=== PATIENT | male | born 1955 | race Caucasian/White ===

== ENCOUNTER 2019-06-24 18:28 | Inpatient (IN) | payer BC ==
[~2019-06-24] VITALS: Ht 180.3 cm; Wt 166.0 kg
--- NOTE | ~2019-06-24 | CON ---
[place], [place] REPORT OF CONSULTATION NAME: SVEN AGUDELO UNIT #: [id number] ROOM: 519 DOCTOR: ERIKA GARZA MD BIRTHDATE: [birth year] DOS: 06/26/2019 REASON FOR CONSULTATION: Toe cellulitis, osteomyelitis. CHIEF COMPLAINT: Right leg swelling. HISTORY OF PRESENT ILLNESS: This is a 63-year-old male with past medical history of hypertension, diabetes, hyperlipidemia presenting with chief complaints of right lower leg swelling and pain. According to him, he had an injury over his right leg in a garage in the form of a small cut, which initially got healed as he was taking antibiotics for his COPD exacerbation, but then it came back again and was worsening to the point he decided to come to the ER. At the same time, he has 2 ulcers over his toes, both right and left that he has been taking care himself by frequently cutting of the skin. A day prior to the presentation, he had shaking chills. Since admission, he has been afebrile, no leukocytosis. His ESR is 31 on admission. His CRP is 12.20. His blood cultures from 06/24 negative for last 3 days. X-ray of his foot on the right side shows ulceration second digit with soft tissue gas and erosion of the distal phalanx compatible with acute osteomyelitis, left foot ulceration of the first digit, soft tissue swelling and changes suggestive of acute osteomyelitis there as well. No DVT of bilateral lower extremity, good arterial duplex scan. The patient has been started on vancomycin and Zosyn since admission and ID has been consulted for further management. PAST MEDICAL HISTORY: Significant for atrial fibrillation, cellulitis, hyperglycemia, diabetes, asthma, COPD and hypertension. PAST SURGICAL HISTORY: Appendectomy, inguinal hernia, tonsillectomy, umbilical hernia. SOCIAL HISTORY: Nonsmoker, nonalcoholic, no illicit drug use. FAMILY HISTORY: Significant for stroke in father, hypertension in mother. ALLERGIES: CODEINE and ALOE VERA. HOME MEDICATIONS: Reviewed. REVIEW OF SYSTEMS: A 12-point review of systems has been done. Pertinent negative, likely included in HPI, rest are noncontributory. PHYSICAL EXAMINATION: VITAL SIGNS: Temperature 97.9, pulse rate 99, respiratory rate 18, blood pressure 118/69, oxygen saturation 94% on room air. GENERAL: The patient is alert, oriented x 3, not in acute distress. HEENT: Atraumatic, normocephalic. PERRLA, EOMI. RESPIRATORY: Air entry bilaterally equal. No wheeze or crackles. CARDIOVASCULAR: S1, S2 normal. ABDOMEN: Soft, nontender, nondistended. Bowel sounds present. EXTREMITIES: Right lower extremity redness and tenderness, swelling noted of [place], [place] REPORT OF CONSULTATION NAME: SVEN AGUDELO UNIT #: [id number] ROOM: [facility] DOCTOR: ERIKA GARZA MD BIRTHDATE: [birth year] the entire right lower leg with prepatellar area also having redness and tenderness, swelling more compared to the left side. Right second digit on the plantar aspect, there is a circular ulcer with currently no drainage, no foul smell, probes deep. Similar ulcer noted on the first digit of the left foot with circular ulcer on the plantar aspect. No drainage, no smell, no surrounding redness or tenderness. LABORATORY DATA AND IMAGING: Reviewed, mentioned in HPI. ASSESSMENT: 1. Right lower extremity extensive cellulitis secondary to trauma. 2. Right second digit as well as left first digit ulceration with osteomyelitis. 3. Diabetes. PLAN: At this time, the patient has already been on vancomycin and Zosyn for the last 3 days, which may affect the results of the bone biopsy; however, at this time, I would also like to get an x-ray of his right knee because of the swelling and redness noted over the joint, rule out septic arthritis. Once the bone biopsy results have been finalized, we can further guide his definitive therapy. Currently on vancomycin and Zosyn. Discontinue Zosyn. Continue vancomycin for now, give Tdap injection. Thank you for your consult. Please call for any questions. Erika Garza MD CM:CONSTR:REPORT OF CONSULTATION 1445 06/27/19 0318 interface
--- NOTE | ~2019-06-24 | CON ---
[place], [place] REPORT OF CONSULTATION NAME: SVEN AGUDELO UNIT #: [id number] ROOM: 519 DOCTOR: QUINTIN CHAMBERS BIRTHDATE: [birth year] DOS: 06/26/2019 CARDIOLOGY CONSULTATION REASON FOR CONSULTATION: New-onset atrial fibrillation, preoperative risk assessment. REQUESTING PHYSICIAN: Dr. Julian Cummings. HISTORY OF PRESENT ILLNESS: The patient is a 63-year-old obese gentleman with a history of hypertension, diabetes and hyperlipidemia. He presented yesterday with complaints of right leg swelling and pain over the past few months. He is noted to have an ulcer in his toe and imaging suggested osteomyelitis. He has been seen by Podiatry and plan for being taken to the OR tomorrow for surgical debridement. He has been noted to be in atrial fibrillation with reasonably well controlled rates for this hospitalization. He denies any prior history of diagnosis of atrial fibrillation. He denies palpitations, chest pain. He states he does get short of breath when he exerts himself, but this has been going on for about a year. He is able to walk up a flight of stairs. He states he could walk a mile on flat ground as long as he was in a perdomo. He does not get any chest discomfort with ambulation. 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 REVIEW OF SYSTEMS: Negative except as described above. PAST MEDICAL HISTORY: Hypertension, diabetes, obesity, heart failure with preserved ejection fraction by history (the patient denies knowledge of this), gout. PAST SURGICAL HISTORY: Appendectomy, inguinal hernia, tonsillectomy. SOCIAL HISTORY: Denies smoking or drug use. He drinks alcohol occasionally. 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 FAMILY HISTORY: Both parents lived into the 90s. No history of premature coronary artery disease. ALLERGIES: NOTED TO CODEINE. HOME MEDICATIONS: Carvedilol 12.5 mg p.o. b.i.d. He is on glyburide. He is on losartan 50 mg daily, indomethacin, multivitamin. PHYSICAL EXAMINATION: VITAL SIGNS: He is afebrile, pulse 99 and irregular, respirations 18, blood pressure 118/69, saturating 94% on room air. GENERAL APPEARANCE: He is a morbidly obese, middle-aged gentleman, sitting in chair, in no distress. ENT: With moist mucous membranes. NECK: Supple. JVP difficult to assess given body habitus. No carotid bruits. RESPIRATORY: Lungs diminished. CARDIOVASCULAR: Irregular rhythm with a borderline tachycardic rate. No [place], [place] REPORT OF CONSULTATION NAME: SVEN AGUDELO UNIT #: [id number] ROOM: [facility] DOCTOR: QUINTIN CHAMBERS BIRTHDATE: [birth year] appreciable murmurs. ABDOMEN: Obese. Positive bowel sounds. Soft, nontender. EXTREMITIES: Left leg with mild 1+ pitting edema, right leg with red discoloration throughout the lower extremity along with skin thickening and edema. He has distal ulcerations at the end of the right second toe as well as the left great toe. NEUROLOGICAL: Nonfocal. LABORATORY DATA: Hemoglobin 13.3, platelets 202, potassium 4.0, BUN 45, creatinine 1.18, hemoglobin A1c 8.0. Troponin was negative. Chest x-ray showed cardiomegaly with mild pulmonary vascular congestion. EKG showed atrial fibrillation with a ventricular rate of 95 beats per minute. Normal axis with normal intervals. There is low voltage noted. Echocardiogram interpreted by me yesterday with a severely limited study given body habitus. All structures were not well visualized. Overall, EF was normal at 60-65%. Detailed wall motion assessment or assessment of valvular structures is not possible. The ascending aorta was mildly dilated to 3.9 cm. IMPRESSION: 1. New diagnosis of atrial fibrillation, CHADS2-VASc score at least 4, rate controlled. Not on anticoagulation, on beta vickie. 2. Osteomyelitis of the toe. 3. Mild acute on chronic diastolic congestive heart failure, diuresed well with a dose of intravenous diuretics. This appears improved. 4. Untreated sleep apnea. 5. Morbid obesity. 6. Hypertension. 7. Diabetes. 8. Mildly dilated ascending aorta. RECOMMENDATIONS: 1. With his elevated CHADS2-VASc score, would recommend anticoagulation for stroke risk reduction. Can continue therapeutic enoxapairn for now and convert to a direct oral anticoagulant after his planned podiatric surgery. 2. Continue beta vickie for rate control. 3. Recommend outpatient sleep study and treatment of sleep apnea. 4. Recommend weight reduction and general cardiovascular risk factor modification. 5. Regarding risk stratification, he is at a moderate risk for cardiovascular complications for a low risk surgery. He may proceed with the necessary surgery without further cardiovascular testing. Thank you for the consultation. [place], [place] REPORT OF CONSULTATION NAME: SVEN AGUDELO UNIT #: [id number] ROOM: [facility] DOCTOR: QUINTIN CHAMBERS BIRTHDATE: [birth year] Dr. QUINTIN CHAMBERS MD CM:CONSTR:REPORT OF CONSULTATION 1303 06/27/19 0808 interface
--- NOTE | ~2019-06-24 | PR ---
[place], [place] PROGRESS NOTE NAME: COVERTSVEN UNIT #: [id number] ROOM: 519 DOCTOR: QUINTIN CHAMBERS BIRTHDATE: [birth year] DOS: 06/28/2019 The patient is being seen in followup for newly diagnosed atrial fibrillation. SUBJECTIVE: The patient feels well. Denies any chest pain, shortness of breath or palpitations. He went to the OR yesterday with Podiatry for debridement and bone biopsy without issues. On telemetry, he remains in atrial fibrillation, rate controlled. He did have a 4.4 second pause overnight around 2 in the morning. Otherwise, no issues. He was started on oral rivaroxaban full dose 20 mg today. OBJECTIVE: VITAL SIGNS: Low-grade temp of 100.6, pulse 98, respirations 18, blood pressure 95% on room air. GENERAL: He is an obese male sitting up in a chair, in no distress. NECK: Supple. JVP appears normal, but difficult to assess. No carotid bruit. RESPIRATORY: Lungs are clear. CARDIOVASCULAR: Irregular rhythm, normal rate. No murmurs. ABDOMEN: Positive bowel sounds. Soft, nontender. EXTREMITIES: Both legs are wrapped up after surgery. LABORATORY DATA: Hemoglobin 13.5, platelets 231, potassium 3.7, bicarbonate 34, BUN 17, creatinine 1.18. Echocardiogram from 06/25/2019 was a difficult study, but showed normal LVEF of 60-65% and mildly dilated ascending aorta 3.9 cm. CURRENT CARDIAC MEDICATIONS: Include furosemide 40 mg p.o. b.i.d., rivaroxaban 20 mg daily, carvedilol 25 mg b.i.d., losartan 50 mg daily. IMPRESSION: 1. New diagnosis of atrial fibrillation, persistent, rate controlled. 2. CHADS2-VASc score at least 4. On rivaroxaban and carvedilol. No pauses greater than 5 seconds noted. 3. Acute on chronic diastolic congestive heart failure, resolved. 4. Osteomyelitis of the toe, status post debridement and bone biopsies. 5. Untreated sleep apnea. 6. Morbid obesity. 7. Mildly dilated ascending aorta. 8. Hypertension, diabetes. RECOMMENDATIONS: 1. Agree with oral furosemide. 2. Agree with rivaroxaban 20 mg daily. 3. Continue carvedilol and losartan at the present doses. 4. His pause is likely related to hypoxia and his untreated sleep apnea. Generally speaking in atrial fibrillation pauses less that 5 seconds are not of clinical concern. I think the underlying issue of sleep apnea needs to be addressed and an outpatient sleep study is recommended. 5. Recommended ongoing efforts for weight reduction and risk factor [place], [place] PROGRESS NOTE NAME: SVEN AGUDELO UNIT #: [id number] ROOM: [facility] DOCTOR: QUINTIN CHAMBERS BIRTHDATE: [birth year] modification. 6. We will plan to bring him back in 3 weeks for a cardioversion to try to get him back into sinus rhythm. 7. Okay for discharge from cardiology standpoint. I will see him in the office. We will sign off. Please call with any questions. Dr. QUINTIN CHAMBERS MD CM:PNTRANS [id number] QUINTIN CHAMBERS 07/03/19 0854 interface
--- NOTE | ~2019-06-24 | O ---
[place], [place] OPERATIVE NOTE NAME: SVEN AGUDELO UNIT #: [id number] ROOM: 519 DOCTOR: JOJO CHEN DPM BIRTHDATE: [birth year] DOS: 06/27/2019 SURGEON: Jojo Chen DPM. ASSISTANTS: 1. Vick Alves, fellow. 2. Lionel Stevens, PGY3. 3. Fozia Kay, PGY3. PREOPERATIVE DIAGNOSES: Osteomyelitis of the left great toe, osteomyelitis of the second toe, right. POSTOPERATIVE DIAGNOSES: Osteomyelitis of the left great toe, osteomyelitis of the second toe, right. PROCEDURE: Incision and drainage, bone debridement, bone biopsy, left great toe. Incision and drainage, bone biopsy of second toe, right. DESCRIPTION OF PROCEDURE: The patient was seen in preoperative holding area, appropriate site marking performed. He and concurred the site marking. ____. He was brought to OR, placed on the well-padded OR table and anesthesia was achieved. At this point in time, ____ was used. At that time, rongeurs were used to fully excised wounds at the distal tip of the left great toe, which measured approximately 7 mm x 7 mm. This was carried down to the bone and the bone then was harvested with a rongeur extensively. This was sent for Gram stain, aerobic, anaerobic, fungal, acid fast as well as biopsy of left great toe. Dressed with Betadine-soaked Adaptic, 4 x 4s, Austyn ____ with a compression bandage to his left lower extremity. Attention directed to the second toe, right where incision was made over the wound. The wound was 0.5 x 0.5 cm full thickness in nature. This was excised, removed in total. The incision was carried down to the bone. The bone was resected. Bone was then debrided with a rongeur and excised and the bone segment sent for Gram stain, aerobic, anaerobic, fungal, acid fast as well as biopsy of the second toe of the right. The area was irrigated with copious amounts of sterile saline. At this time, ____ dressed with Betadine-soaked Adaptic, 4 x 4s, Austyn in a sterile compressive fashion. He tolerated the procedure and anesthesia well and left the OR with vital signs stable and vascular status intact. [place], [place] OPERATIVE NOTE NAME: JACINTATSVEN UNIT #: [id number] ROOM: [facility] DOCTOR: JOJO CHEN DPM BIRTHDATE: [birth year] JOJO CHEN DPM CM:OPRECORD:OPERATIVE NOTE 1332 [id number] JOJO CHEN DPM 06/27/19 1715 interface
--- NOTE | ~2019-06-24 | EKG ---
[place], [place] ELECTROCARDIOGRAM REPORT NAME: SVEN AGUDELO UNIT #: [id number] ROOM: 519 DOCTOR: HANNAH DRAFT REPORT BIRTHDATE: [birth year] [facility] Test Date: 2019-06-24 Test Time: 18:56:17 Pat Name: SVEN AGUDELO Department: Room: 519 Gender: M Head Esthetician: Gemma Kwon : 1955 Requested By: GERA GARCIA Order Number: [id number] Reading MD: Shad Nunez MD Measurements Intervals [place] Rate: 102 P: [place]: QRS: 15 QRSD: 78 T: 39 QT: 340 QTc: 443 Interpretive Statements Atrial fibrillation Electronically Signed On 06-25-2019 5:51:13 PDT by Shad Nunez MD CM:EKGRPT:ELECTROCARDIOGRAM REPORT [id number] GERA YOUNG DRAFT REPORT GERA GARCIA MD
--- NOTE | ~2019-06-24 | WRIGHTHP ---
[place], [place] PATIENT HISTORY AND PHYSICAL EXAM NAME: SVEN AGUDELO UNIT #: [id number] ROOM: 519 DOCTOR: JOJO CHEN DPM BIRTHDATE: [birth year] DOS: 06/24/2019 INDICATION NOTE The patient is seen for cellulitis infection of his right lower leg ____ open wounds of the left hallux and second toe, right. He denies any other significant history relative to his foot, other than the cellulitis infection. He said that this may started as a scratch ____ and leg. With this in mind, he is set for surgery today for incision and drainage, bone debridement, bone biopsy of left hallux and the second toe, right. He understands pros, cons, risks, benefits overcorrection, undercorrection, recurrence, numbness, infection, drainage, foul odor, undermining tunneling, limb loss, DVT, PE, etc. With this in mind, he understands he is at risk for limb loss. With this in mind, he has agreed to surgery. He gave consent to the surgery, consent to the site marking. With this in mind, he agreed with all. JOJO CHEN DPM CM:HISPHYS:PATIENT HISTORY AND PHYSICAL EXAMINATION 1332 1403 JOJO CHEN DPM 06/27/19 1532 interface
--- NOTE | ~2019-06-24 | EKG ---
[place], [place] ELECTROCARDIOGRAM REPORT NAME: SVEN AGUDELO UNIT #: [id number] ROOM: [facility] DOCTOR: HANNAH DRAFT REPORT BIRTHDATE: [birth year] [facility] Test Date: 2019-06-25 Test Time: 14:45:00 Pat Name: SVEN AGUDELO Department: Room: [facility] 1 Gender: M E Learning Manager: Brooke Peguero : 1955 Requested By: RYAN AGUILAR Order Number: [id number] Reading MD: Shad Nunez MD Measurements Intervals [place] Rate: 95 P: DC: QRS: 10 QRSD: 83 T: 30 QT: 347 QTc: 436 Interpretive Statements Atrial fibrillation Low voltage, precordial leads Electronically Signed On 06-26-2019 4:47:32 PDT by Shad Nunez MD CM:EKGRPT:ELECTROCARDIOGRAM REPORT [id number] RYAN DALEY DRAFT REPORT RYAN AGUILAR DO
--- NOTE | ~2019-06-24 | PR ---
[place], [place] PROGRESS NOTE NAME: SVEN AGUDELO UNIT #: [id number] ROOM: 519 DOCTOR: QUINTIN CHAMBERS BIRTHDATE: [birth year] DOS: 06/27/2019 The patient is being seen in followup for a new diagnosis of atrial fibrillation. SUBJECTIVE: The patient feels well. He is planned for the OR today for debridement and bone biopsy of toes on both feet. Denies chest pain or shortness of breath or palpitations. He feels well. On telemetry, he remains in atrial fibrillation with overall rate controlled, occasionally up to the 120s. OBJECTIVE: VITAL SIGNS: Afebrile, pulse 90, respirations 14, blood pressure 137/69, saturating 93% on room air. GENERAL APPEARANCE: Obese male, sitting in chair, in no distress. NECK: Supple. JVP appears normal. No carotid bruits. RESPIRATORY: Lungs are clear. CARDIOVASCULAR: Irregular rhythm with a normal rate. No murmurs heard. ABDOMEN: Positive bowel sounds. Soft, nontender. EXTREMITIES: Red discoloration and some edema of the right lower extremity with mild edema in the left lower extremity. Both feet are covered. LABORATORY DATA: Hemoglobin 13.3, platelets 202. No chemistries today, but creatinine yesterday was 1.18. As previously mentioned, an echocardiogram on this admission was severely limited given the body habitus, but overall EF was normal. There was mildly dilated ascending aorta of 3.9 cm. CURRENT CARDIAC MEDICATIONS: Include losartan 50 mg daily, enoxaparin 160 mg b.i.d., furosemide 40 mg IV b.i.d., carvedilol 12.5 mg b.i.d. I's and O's negative 3 liters in the past 24 hours. ASSESSMENT: 1. New diagnosis of atrial fibrillation, rate controlled, CHADS2-VASc score at least 4. Not on anticoagulation, rate controlled with beta-vickie. 2. Osteomyelitis of the toe. 3. Acute on chronic diastolic congestive heart failure, improving diuresing well. 4. Untreated sleep apnea. 5. Morbid obesity. 6. Hypertension, diabetes, mildly dilated ascending aorta. RECOMMENDATIONS: 1. After surgery today, we would initiate oral anticoagulation with either rivaroxaban or apixaban. 2. We will plan for outpatient DC cardioversion after 3 weeks of anticoagulation and will be followed up with me. 3. We will up titrate his carvedilol for improved rate control. 4. He remains on IV diuretics today, this can probably be transitioned to oral after the evening dose. 5. Recommended ongoing efforts for weight reduction and risk factor [place], [place] PROGRESS NOTE NAME: SVEN AGUDELO UNIT #: [id number] ROOM: [facility] DOCTOR: QUINTIN CHAMBERS BIRTHDATE: [birth year] modification. 6. Outpatient sleep study and treatment of sleep apnea is recommended. Dr. QUINTIN CHAMBERS MD CM:AKILAH 1203 50 QUINTIN CHAMBERS 06/27/192150 interface
--- NOTE | ~2019-06-24 | WRIGHTHP ---
[place], [place] PATIENT HISTORY AND PHYSICAL EXAM NAME: SVEN AGUDELO UNIT #: [id number] ROOM: 519 DOCTOR: JOJO CHEN DPM BIRTHDATE: [birth year] DOS: 06/24/2019 LOWER EXTREMITY PHYSICAL EXAM VASCULAR: Diminished pedal pulses 1/4 DP and PT bilaterally. Good cap fill time. It is hard to palpate due to the significant amount of edema. He has significant pretibial edema, more on the right than the left secondary to cellulitis. NEUROLOGICAL: He has complete loss of protective sensation secondary to diabetic neuropathy. MUSCULOSKELETAL: He has flexion contracture of toes causing when he ambulates the distal tip of his toes rubbing the ground, causing these ulcerations. There are flexor digitorum longus of toes ____ on second toe on the right and the F[facility] ____ left. He also has a gastroc equinus component as well on both lower extremities. Orthopedic exam, possible osteomyelitis of the left hallux and the second toe, right. JOJO CHEN DPM CM:HISPHYS:PATIENT HISTORY AND PHYSICAL EXAMINATION 1332 1406 JOJO CHEN DPM 06/27/19 1533 interface
[~2019-06-24 18:28] MED LIST: ALLOPURINOL100 MG PO; COLCHICINE0.6 MG PO; INDOCIN25 MG PO; MULTI VITAMINS1 TAB PO; ZYLOPRIM100 MG PO
[2019-06-24 18:31] VITALS: BP 159/85
[2019-06-24 19:27] LABS: BASO % 0.1 % (0.0-1.0); EOS # 0.1 10*3/uL (0.0-0.4); EOS % 1.8 % (1.0-4.0); HEMATOCRIT 38.8 % (42.0-52.0); HEMOGLOBIN 12.4 g/dl (14.0-18.0); LYMPH # 1.1 10*3/uL (1.3-4.4); LYMPH % 16.6 % (27.0-41.0); MEAN CELL VOLUME 90.7 fl (80.0-94.0); MEAN PLATELET VOLUME 10.3 fl (9.6-12.3); MONO # 0.8 10*3/uL (0.1-1.0); MONO % 12.1 % (3.0-9.0); NEUT # 4.6 10*3/uL (2.3-7.9); NEUT % 68.8 % (47.0-73.0); PLATELET COUNT AUTOMATED 160 10*3/uL (130-400); RED BLOOD COUNT 4.28 10*6/uL (4.50-5.90); RED CELL DISTRI WIDTH 13.3 % (0-14.5); WHITE BLOOD COUNT 6.8 10*3/uL (4.8-10.8)
[2019-06-24 19:39] LABS: ACT PARTIAL THROMBO TIME 28.2 SECONDS (20.0-32.1); INTERNATIONAL NORM RATIO 1.1 (2.0-3.5)
[2019-06-24 19:44] LABS: ALKALINE PHOSPHATASE 109 U/L (45-117); BUN 17 mg/dl (7-24); CHLORIDE 107 mmol/L (98-107); POTASSIUM 3.9 mmol/L (3.5-5.1); SGOT/AST 25 IU/L (3-35); SGPT/ALT 40 U/L (12-78); SODIUM 140 mmol/L (136-145); TOTAL PROTEIN 6.7 gm/dL (6.4-8.2)
[2019-06-24 19:47] LABS: TROPONIN I < 0.015 ng/ml (<0.045)
[2019-06-24 20:37] LABS: BILIRUBIN NEGATIVE (NEGATIVE); BLOOD NEGATIVE (NEGATIVE); CLARITY CLEAR (CLEAR); COLOR YELLOW (YELLOW); GLUCOSE TRACE (NEGATIVE); KETONE NEGATIVE (NEGATIVE); LEUKO ESTERASE NEGATIVE (NEGATIVE); NITRITE NEGATIVE (NEGATIVE); PH 5.5 (5.0-9.0); SPECIFIC GRAVITY 1.025 (1.005-1.030); UROBILINOGEN 0.2 E.U./dl (0.2-1.0)
[2019-06-24 20:43] LABS: RBC 0-2 rbc/hpf (0-2); WBC 0-2 wbc/hpf (0-5)
[2019-06-24 20:44] LABS: URIC ACID CRYSTALS RARE
[2019-06-24 20:50] VITALS: BP 139/80
[2019-06-24] MEDS ORDERED: LOSARTAN POTASS50 M1 PO (20:54)
[2019-06-24] MEDS ORDERED: INDOMETHACIN25 M1 PO (20:55)
[2019-06-24] MEDS ORDERED: GLYBURIDE5 MG PO ×2 (20:55→20:57)
[2019-06-24] MEDS ORDERED: CARVEDILOL12.5 MG PO (20:57)
[2019-06-24] MEDS ORDERED: PROAIR HFA8.5 GM INH (21:00)
[2019-06-24 21:55] VITALS: BP 139/80
[2019-06-25] VITALS: BP 132/80
[2019-06-25 06:27] LABS: BUN 13 mg/dl (7-24); CHLORIDE 105 mmol/L (98-107); CHOLESTEROL 111 mg/dL (<200); CREATININE 0.94 mg/dL (0.70-1.30); HDL CHOLESTEROL 37 mg/dl (40-60); LDL CHOLESTEROL 60 mg/dL (9-159); PHOSPHOROUS 3.3 mg/dL (2.5-4.9); SODIUM 141 mmol/L (136-145); TRIGLYCERIDES 69 mg/dl (<150); VLDL CHOLESTEROL 14 mg/dL (6-40)
[2019-06-25 06:35] LABS: BASO % 0.1 % (0.0-1.0); EOS # 0.1 10*3/uL (0.0-0.4); EOS % 1.1 % (1.0-4.0); HEMATOCRIT 37.3 % (42.0-52.0); HEMOGLOBIN 11.9 g/dl (14.0-18.0); LYMPH # 1.3 10*3/uL (1.3-4.4); LYMPH % 17.8 % (27.0-41.0); MEAN CELL VOLUME 91.2 fl (80.0-94.0); MEAN CORPUSCULAR HGB 29.1 pg (27.0-31.0); MEAN CORPUSCULAR HGB CONC 31.9 g/dl (33.0-37.0); MEAN PLATELET VOLUME 10.7 fl (9.6-12.3); MONO # 0.9 10*3/uL (0.1-1.0); MONO % 12.1 % (3.0-9.0); NEUT # 4.8 10*3/uL (2.3-7.9); NEUT % 68.5 % (47.0-73.0); PLATELET COUNT AUTOMATED 167 10*3/uL (130-400); RED BLOOD COUNT 4.09 10*6/uL (4.50-5.90); RED CELL DISTRI WIDTH 13.3 % (0-14.5)
[2019-06-25 08:10] VITALS: BP 132/80
[2019-06-25 16:00] VITALS: BP 166/82
[2019-06-25 17:59] LABS: BASO % 0.2 % (0.0-1.0); EOS # 0.1 10*3/uL (0.0-0.4); EOS % 1.2 % (1.0-4.0); HEMATOCRIT 41.1 % (42.0-52.0); HEMOGLOBIN 13.3 g/dl (14.0-18.0); LYMPH # 1.5 10*3/uL (1.3-4.4); MEAN CELL VOLUME 90.7 fl (80.0-94.0); MEAN CORPUSCULAR HGB 29.4 pg (27.0-31.0); MEAN CORPUSCULAR HGB CONC 32.4 g/dl (33.0-37.0); MEAN PLATELET VOLUME 10.7 fl (9.6-12.3); MONO # 0.8 10*3/uL (0.1-1.0); MONO % 9.6 % (3.0-9.0); NEUT # 5.7 10*3/uL (2.3-7.9); NEUT % 70.6 % (47.0-73.0); PLATELET COUNT AUTOMATED 202 10*3/uL (130-400); RED BLOOD COUNT 4.53 10*6/uL (4.50-5.90); RED CELL DISTRI WIDTH 13.2 % (0-14.5); WHITE BLOOD COUNT 8.1 10*3/uL (4.8-10.8)
[2019-06-25 20:00] VITALS: BP 140/79
[2019-06-26] VITALS: BP 130/78; BP 131/89
[2019-06-26 08:00] VITALS: BP 142/78
[2019-06-26 10:07] LABS: BUN 14 mg/dl (7-24); CHLORIDE 98 mmol/L (98-107); CREATININE 1.18 mg/dL (0.70-1.30); PHOSPHOROUS 3.4 mg/dL (2.5-4.9); SODIUM 136 mmol/L (136-145)
[2019-06-26 12:00] VITALS: BP 118/69
[2019-06-26 16:00] VITALS: BP 122/70
[2019-06-26 20:00] VITALS: BP 136/76
[2019-06-27] VITALS (8 sets, daily range): BP systolic 118–159; BP diastolic 66–100
[2019-06-28] VITALS: BP 121/69
[2019-06-28 09:44] LABS: BASO % 0.3 % (0.0-1.0); EOS # 0.1 10*3/uL (0.0-0.4); EOS % 1.4 % (1.0-4.0); HEMATOCRIT 41.7 % (42.0-52.0); HEMOGLOBIN 13.5 g/dl (14.0-18.0); LYMPH # 1.3 10*3/uL (1.3-4.4); LYMPH % 17.4 % (27.0-41.0); MEAN CELL VOLUME 90.3 fl (80.0-94.0); MEAN CORPUSCULAR HGB 29.2 pg (27.0-31.0); MEAN CORPUSCULAR HGB CONC 32.4 g/dl (33.0-37.0); MEAN PLATELET VOLUME 10.2 fl (9.6-12.3); MONO # 0.5 10*3/uL (0.1-1.0); NEUT # 5.4 10*3/uL (2.3-7.9); NEUT % 73.2 % (47.0-73.0); PLATELET COUNT AUTOMATED 231 10*3/uL (130-400); RED BLOOD COUNT 4.62 10*6/uL (4.50-5.90); RED CELL DISTRI WIDTH 12.9 % (0-14.5); WHITE BLOOD COUNT 7.4 10*3/uL (4.8-10.8)
[2019-06-28 10:04] LABS: BUN 17 mg/dl (7-24); CHLORIDE 100 mmol/L (98-107); CREATININE 1.18 mg/dL (0.70-1.30); POTASSIUM 3.7 mmol/L (3.5-5.1); SODIUM 138 mmol/L (136-145)
[2019-06-28 12:00] VITALS: BP 144/87
[2019-06-28 12:06] LABS: ACID FAST SPEC PROCESSING Tissue Grinding (.)
[2019-06-28 12:06] LABS: ACID FAST SPEC PROCESSING Tissue Grinding (.)
[2019-06-28 16:00] VITALS: BP 152/81
[2019-06-28 20:00] VITALS: BP 150/82; BP 151/97
[2019-06-29] VITALS: BP 152/76
[2019-06-29 07:17] LABS: BASO % 0.2 % (0.0-1.0); HEMATOCRIT 40.4 % (42.0-52.0); HEMOGLOBIN 13.2 g/dl (14.0-18.0); LYMPH % 8.7 % (27.0-41.0); MEAN CELL VOLUME 88.2 fl (80.0-94.0); MEAN CORPUSCULAR HGB 28.8 pg (27.0-31.0); MEAN CORPUSCULAR HGB CONC 32.7 g/dl (33.0-37.0); MEAN PLATELET VOLUME 10.6 fl (9.6-12.3); MONO # 0.6 10*3/uL (0.1-1.0); MONO % 5.1 % (3.0-9.0); NEUT # 9.7 10*3/uL (2.3-7.9); NEUT % 85.4 % (47.0-73.0); PLATELET COUNT AUTOMATED 252 10*3/uL (130-400); RED BLOOD COUNT 4.58 10*6/uL (4.50-5.90); RED CELL DISTRI WIDTH 12.6 % (0-14.5); WHITE BLOOD COUNT 11.4 10*3/uL (4.8-10.8)
[2019-06-29 08:24] LABS: BUN 26 mg/dl (7-24); CHLORIDE 102 mmol/L (98-107); POTASSIUM 3.7 mmol/L (3.5-5.1); SODIUM 139 mmol/L (136-145)
[2019-06-29 12:00] VITALS: BP 127/70
[2019-06-29] MEDS ORDERED: VANCOMYCIN HYDRO1 G1 IV (14:40)
[2019-06-29 16:00] VITALS: BP 125/62
[2019-06-29] MEDS ORDERED: LASIX40 MG PO (16:58)
[2019-06-29] MEDS ORDERED: CARVEDILOL25 MG PO (16:58)
[2019-06-29] MEDS ORDERED: XARE20MG PO (16:58)
[2019-06-29 20:00] VITALS: BP 141/85
[2019-06-30] MEDS ORDERED: VANCOMYCIN2 GM/500 M IV (19:57)
== END 2019-06-29 23:00 | disposition home or self-care (01) | DRG 853 ==
LOC: ED 18:28 → 5E 18:44 → EDHOLD 18:44 → 5E 19:04
PROVIDERS: Emergency Medicine; Internal Medicine; Podiatrist; Student in an Organized Health Care Education/Training Program; ADMIT Emergency Medicine
DX: A41.9 Sepsis, unspecified organism (principal); L89.893 Pressure ulcer of other site, stage 3; I50.33 Acute on chronic diastolic (congestive) heart failure; M86.171 Other acute osteomyelitis, right ankle and foot; L03.115 Cellulitis of right lower limb; E44.0 Moderate protein-calorie malnutrition; L03.116 Cellulitis of left lower limb; I48.1 Persistent atrial fibrillation; L97.919 Non-pressure chronic ulcer of unspecified part of right lower leg with unspecified severity; M86.8X7 Other osteomyelitis, ankle and foot; Z68.42 Body mass index [BMI] 45.0-49.9, adult; L89.892 Pressure ulcer of other site, stage 2; J45.909 Unspecified asthma, uncomplicated; I11.0 Hypertensive heart disease with heart failure; E66.01 Morbid (severe) obesity due to excess calories; E78.00 Pure hypercholesterolemia, unspecified; E78.5 Hyperlipidemia, unspecified; E11.69 Type 2 diabetes mellitus with other specified complication; D64.9 Anemia, unspecified; E11.65 Type 2 diabetes mellitus with hyperglycemia; E83.41 Hypermagnesemia; G47.30 Sleep apnea, unspecified; I77.819 Aortic ectasia, unspecified site; M1A.0610 Idiopathic chronic gout, right knee, without tophus (tophi); J44.9 Chronic obstructive pulmonary disease, unspecified; E11.621 Type 2 diabetes mellitus with foot ulcer; L97.519 Non-pressure chronic ulcer of other part of right foot with unspecified severity; E11.40 Type 2 diabetes mellitus with diabetic neuropathy, unspecified; S81.801S Unspecified open wound, right lower leg, sequela; Z88.6 Allergy status to analgesic agent; Z88.8 Allergy status to other drugs, medicaments and biological substances; Z79.899 Other long term (current) drug therapy; Z90.49 Acquired absence of other specified parts of digestive tract; Z82.49 Family history of ischemic heart disease and other diseases of the circulatory system; Z90.89 Acquired absence of other organs; Z82.3 Family history of stroke

== ENCOUNTER 2019-07-01 18:09 | Inpatient (IN) | payer BC ==
[~2019-07-01] VITALS: Ht 180.3 cm; Wt 158.9 kg
--- NOTE | ~2019-07-01 | EKG ---
[place], [place] ELECTROCARDIOGRAM REPORT NAME: JACINTATSVEN UNIT #: [id number] ROOM: 511 DOCTOR: HANNAH DRAFT REPORT BIRTHDATE: [birth year] [facility] Test Date: 2019-07-01 Test Time: 18:13:20 Pat Name: SVEN AGUDELO Department: Room: 511 Gender: M Public Health Policy Analyst: : 1955 Requested By: GERA AGRCIA Order Number: [id number] Reading MD: Shad Nunez MD Measurements Intervals [place] Rate: 88 P: [place]: QRS: 22 QRSD: 77 T: 61 QT: 380 QTc: 460 Interpretive Statements Atrial fibrillation Nonspecific ST changes Electronically Signed On 07-02-2019 10:57:57 PDT by Shad Nunez MD CM:EKGRPT:ELECTROCARDIOGRAM REPORT [id number] GERA GARCIA MD EPIPHANY DRAFT REPORT GERA GARCIA MD
--- NOTE | ~2019-07-01 | EKG ---
[place], [place] ELECTROCARDIOGRAM REPORT NAME: JACINTATSVEN UNIT #: [id number] ROOM: 511 DOCTOR: HANNAH DRAFT REPORT BIRTHDATE: [birth year] [facility] Test Date: 2019-07-01 Test Time: 20:42:47 Pat Name: SVEN AGUDELO Department: Room: 511 Gender: M Bed Machine Operator: Constanza Solorzano : 1955 Requested By: GERA GARCIA Order Number: [id number] Reading MD: Shad Nunez MD Measurements Intervals [place] Rate: 84 P: AR: QRS: 25 QRSD: 76 T: 47 QT: 400 QTc: 473 Interpretive Statements Atrial fibrillation Nonspecific ST changes Electronically Signed On 07-02-2019 10:59:43 PDT by Shad Nunez MD CM:EKGRPT:ELECTROCARDIOGRAM REPORT [id number] GERA YOUNG DRAFT REPORT GERA GARCIA MD
--- NOTE | ~2019-07-01 | EKG ---
[place], [place] ELECTROCARDIOGRAM REPORT NAME: JACINTATSVEN UNIT #: [id number] ROOM: 511 DOCTOR: HANNAH DRAFT REPORT BIRTHDATE: [birth year] [facility] Test Date: 2019-07-01 Test Time: 23:43:38 Pat Name: SVEN AGUDELO Department: Room: 511 Gender: M Heel Layer: Constanza Solorzano : 1955 Requested By: GERA GARCIA Order Number: [id number] Reading MD: Shad Nunez MD Measurements Intervals [place] Rate: 84 P: RI: QRS: 24 QRSD: 80 T: 62 QT: 408 QTc: 483 Interpretive Statements Atrial fibrillation Low voltage, precordial leads Electronically Signed On 07-02-2019 11:00:46 PDT by Shad Nunez MD CM:EKGRPT:ELECTROCARDIOGRAM REPORT [id number] GERA YOUNG DRAFT REPORT GERA GARCIA MD
[~2019-07-01 18:09] MED LIST changes: +CARVEDILOL12.5 MG PO; +CARVEDILOL25 MG PO; +GLYBURIDE5 MG PO; +INDOMETHACIN25 M1 PO; +LASIX40 MG PO; +LOSARTAN POTASS50 M1 PO; +PROAIR HFA8.5 GM INH; +VANCOMYCIN HYDRO1 G1 IV; +VANCOMYCIN2 GM/500 M IV; +XARE20MG PO
[2019-07-01 18:25] LABS: BASO % 0.2 % (0.0-1.0); EOS # 0.1 10*3/uL (0.0-0.4); EOS % 1.5 % (1.0-4.0); HEMATOCRIT 39.3 % (42.0-52.0); HEMOGLOBIN 12.5 g/dl (14.0-18.0); MEAN CELL VOLUME 90.3 fl (80.0-94.0); MEAN CORPUSCULAR HGB 28.7 pg (27.0-31.0); MEAN CORPUSCULAR HGB CONC 31.8 g/dl (33.0-37.0); MEAN PLATELET VOLUME 10.1 fl (9.6-12.3); MONO # 0.5 10*3/uL (0.1-1.0); MONO % 5.2 % (3.0-9.0); NEUT % 82.6 % (47.0-73.0); PLATELET COUNT AUTOMATED 208 10*3/uL (130-400); RED BLOOD COUNT 4.35 10*6/uL (4.50-5.90); RED CELL DISTRI WIDTH 12.9 % (0-14.5); WHITE BLOOD COUNT 9.6 10*3/uL (4.8-10.8)
[2019-07-01 18:36] LABS: ACT PARTIAL THROMBO TIME 31.3 SECONDS (20.0-32.1); INTERNATIONAL NORM RATIO 1.2 (2.0-3.5)
[2019-07-01 18:43] LABS: ALKALINE PHOSPHATASE 98 U/L (45-117); BUN 30 mg/dl (7-24); CHLORIDE 105 mmol/L (98-107); CREATININE 1.47 mg/dL (0.70-1.30); SGOT/AST 25 IU/L (3-35); SGPT/ALT 52 U/L (12-78); SODIUM 141 mmol/L (136-145); TOTAL PROTEIN 7.1 gm/dL (6.4-8.2)
[2019-07-01 18:44] LABS: TROPONIN I < 0.015 ng/ml (<0.045)
[2019-07-01 19:02] VITALS: BP 157/71
--- NOTE | 2019-07-01 19:40 | NUR ---
A 64, admitted to 5E, under the services of KIKO [place] DO with a diagnosis of RIGHT SIDED CHEST PAIN. Chief complaint is MULTIPLE COMPLAINTS. Patient arrived via stretcher from ER. Monitor applied. Initial assessment completed. Vital signs taken and recorded. KIKO B[place] DO notified of admission to the unit. Orders received. See assessment for past medical history, medications and allergies. Patient and/or family oriented to unit. visitation policy reviewed. Clothing/patient valuable form completed. HAILEE ALANIZ
[2019-07-01 19:46] VITALS: BP 161/75
[2019-07-01 19:50] VITALS: BP 147/82
--- NOTE | 2019-07-01 20:07 | NUR ---
REFUSED PHOTOS OF SURGICAL SITES, REFUSED REMOVAL OF DRESSINGS
--- NOTE | 2019-07-01 20:07 | NUR ---
INFORMED THAT HOME MEDS ARE VERIFIED BY PATIENT. STATED OK TO PLACE ORDER TO USE PICC LINE.
--- NOTE | 2019-07-01 20:20 | NUR ---
FISH HATCHERY MANAGER CALLED AND STATED PATIENT HR 130-150'S. PATIENT WAS USING BATHROO. HR DECREASED 90-100'S IMMEDIATELY, HX AFIB. PATIENT ASYMPTOMATIC. WILL CONTINUE TO MONITOR
--- NOTE | 2019-07-01 21:00 | NUR ---
INFORMED THAT PATIENT REFUSED WOUND PICS/MEASUREMENTS. AWAITING ORDERS.
--- NOTE | 2019-07-01 23:17 | NUR ---
INFORMED THAT PATIENT IS STILL HAVING RIGHT SIDED PAIN THAT RADIATES TO RIGHT SHOULDER WITH NORCO ONLY BEING SOMEWHAT EFFECTIVE, PAIN LEVEL 5/10 AT THIS TIME. PATIENT IS HAVING SOB AT REST WITH SPO2 @88% RA, PLACED ON 1.5L NC INCREASE 93%. STATES TO PLACE X1 DOSE NITRO SL AND MONITOR EFFECTIVENESS.
--- NOTE | 2019-07-01 23:40 | NUR ---
INFORMED THE NITRO SL WAS NOT EFFECTIVE, AND THAT CARDIAC TECHNOLOGIST WAS JUST IN, SHOW EKG OF AFIB. STATED OK AND MAY TRY MORPHINE
[2019-07-02] VITALS: BP 127/70
[2019-07-02 06:41] LABS: BASO % 0.2 % (0.0-1.0); EOS # 0.1 10*3/uL (0.0-0.4); EOS % 1.2 % (1.0-4.0); HEMATOCRIT 39.8 % (42.0-52.0); HEMOGLOBIN 12.5 g/dl (14.0-18.0); LYMPH % 9.7 % (27.0-41.0); MEAN CELL VOLUME 91.5 fl (80.0-94.0); MEAN CORPUSCULAR HGB 28.7 pg (27.0-31.0); MEAN CORPUSCULAR HGB CONC 31.4 g/dl (33.0-37.0); MEAN PLATELET VOLUME 10.3 fl (9.6-12.3); MONO # 0.5 10*3/uL (0.1-1.0); MONO % 5.4 % (3.0-9.0); NEUT # 8.3 10*3/uL (2.3-7.9); NEUT % 82.8 % (47.0-73.0); PLATELET COUNT AUTOMATED 210 10*3/uL (130-400); RED BLOOD COUNT 4.35 10*6/uL (4.50-5.90); WHITE BLOOD COUNT 10.1 10*3/uL (4.8-10.8)
[2019-07-02 06:43] LABS: BUN 24 mg/dl (7-24); CHLORIDE 105 mmol/L (98-107); CREATININE 1.39 mg/dL (0.70-1.30); PHOSPHOROUS 3.5 mg/dL (2.5-4.9); POTASSIUM 4.3 mmol/L (3.5-5.1); SODIUM 141 mmol/L (136-145)
[2019-07-02 08:00] VITALS: BP 138/82
--- NOTE | 2019-07-02 09:28 | NUR ---
NOTIFIED DR. FRANCISCO OF PODIATRY CONSULT FOR DR. PINK FOR DRESSING CHANGES TO BILATERAL FEET. DR. FRANCISCO STATED HE WILL PASS IT ALONG.
--- NOTE | 2019-07-02 09:45 | NUR ---
PATIENT MEDICATED W/ PRN NORCO FOR 6/10 RIGHT RIB/CHEST PAIN AND 50 MG OF PRN INDOCIN FOR GOUT FLARE UP. WILL MONITOR EFFECTIVENESS.
--- NOTE | 2019-07-02 10:30 | NUR ---
PATIENT STATED PRN MEDICATIONS WERE EFFECTIVE. CALL LIGHT WITHIN REACH.
[2019-07-02 10:36] LABS: BILIRUBIN NEGATIVE (NEGATIVE); BLOOD 1+ (NEGATIVE); CLARITY CLEAR (CLEAR); COLOR YELLOW (YELLOW); GLUCOSE NEGATIVE (NEGATIVE); KETONE NEGATIVE (NEGATIVE); LEUKO ESTERASE NEGATIVE (NEGATIVE); NITRITE NEGATIVE (NEGATIVE); PH 5.5 (5.0-9.0); UROBILINOGEN 0.2 E.U./dl (0.2-1.0)
[2019-07-02 11:05] LABS: BACTERIA 1+; MUCOUS 1+; RBC 16-20 rbc/hpf (0-2)
[2019-07-02 12:00] VITALS: BP 127/56
--- NOTE | 2019-07-02 13:55 | NUR ---
24 HR chart check completed.
[2019-07-02 16:00] VITALS: BP 155/82
--- NOTE | 2019-07-02 19:50 | NUR ---
PT SITTING UP IN RECLINER CHAIR. RESP-EASY AND REGULAR. NO C/O AT THIS TIME. DRESSING BILATERAL FEET D/I. CALL LIGHT IN REACH. SEE SHIFT ASSESSMENT.
[2019-07-02 20:00] VITALS: BP 151/70
--- NOTE | 2019-07-02 21:53 | NUR ---
PT TOLERATED ROUTINE MED WITH NO PROBLEM. REQUESTING INDOCIN FOR GOUT. DENIES ANY PAIN AT THIS TIME. BSG-327, SEE EMAR. CALL LIGHT IN REACH.
[2019-07-03] VITALS: BP 134/76
--- NOTE | 2019-07-03 | NUR ---
PT SITTING UP IN RECLINER CHAIR. RESP-EASY AND REGULAR. NO C/O AT THIS TIME. CALL LIGHT IN REACH. SEE SHIFT ASSESSMENT.
--- NOTE | 2019-07-03 04:00 | NUR ---
SLEEPING IN RECLINER. CALL LIGHT IN REACH. RESP-EASY AND REGULAR.
--- NOTE | 2019-07-03 05:30 | NUR ---
BSG-221, SEE EMAR. NO C/O AT THIS TIME. CALL LIGHT IN REACH.
--- NOTE | 2019-07-03 07:53 | NUR ---
PT GIVEN 50 MG INDOCIN DUE TO C/O PAIN RELATED TO GOUT. WILL MONITOR FOR EFFECITVENESS. CALL LIGHT IN REACH.
--- NOTE | 2019-07-03 08:14 | NUR ---
HOPPER FILLER NOTIFIES THIS NURSE THAT PT RECENTLY HAD ULTRASOUND OF BLE ON 06/25/19 DUE TO THE SAME S/S THIS ADMISSION. VENOUS ULTRASOUND FROM 06/25/19 WAS NEGATIVE, TECH QUESTIONS WHETHER OF NOT THE PHYSICIAN STILL WANTS THE ULTRASOUND DONE TODAY. DR LE NOTIFIED AND STATES THAT THE ULTRASOUND CAN BE CANCELED. HE STATES THAT IF HE FEELS IT IS NEEDED AFTER SEEING PATIENT TODAY, HE WILL RE ORDER IT. JENISE FROM ULTRASOUND NOTIFIED REGARDING CANCELING THE ULTRASOUND FOR PATIENT. WILL NOTIFY PATIENT.
--- NOTE | 2019-07-03 08:53 | NUR ---
PRN MEDICATION EFEFCTIVE PER PT.
[2019-07-03 09:41] VITALS: BP 142/80
--- NOTE | 2019-07-03 09:58 | NUR ---
SVEN AGUDELO [id number] Please refer to the physician's history and physical for past medical history, comorbid conditions, and allergies. Diagnosis: RIGHT-SIDED CHEST PAIN Vito Score: 20,LOW OR NO RISK WOUND DESCRIPTIONS: Wound Number: 1 Location of the wound: right mcknight Thickness: Full Size: 6.2cm x 0.4cm x <0.1cm Tunneling: none Undermining: none Sinus Tract: none Presence of Exudate: none Amount: None Color: Brown, red, yellow Odor: None Periwound Skin Appearance: Normal Wound edges: approximated Pain (associated with wound): none at time of assessment How does patient state this happened? pt stated this happened a couple months ago he hit it on metal in the garage and because he legs have swelling and goes back down it opens and reopens frequently. Wound Number: 2 right abdomen ecchymotic area noted patient states this is from injections. Wound Number: 3 right knee patient stated this is due to a gout flare up. No open areas at time of assessment. No drainage noted at time of assessment. Wound Number: 4 Dressing intact to right 2nd toe no strikethrough drainage noted at time of assessment. Podiatry stated to keep dressing intact until follow up appointment with Dr. Maurer. Wound Number: 5 Dressing intact to left great toe no strikethrough drainage noted at time of assessment. Podiatry stated to keep dressing intact until follow up appointment with Dr. Maurer. Surface the patient is resting on: Position Pro SKIN PREVENTION RECOMMENDATION: 1. Pressure redistribution support surface as appropriate 2. Elevate heels 3. Remove boots/TEDS every shift and reapply 4. Head of bed 30 degrees as tolerated 5. Assess nutrition and hydration 6. Manage moisture 7. Avoid the use of containment devices while in bed 8. Use absorptive products on surfaces limit layers of linens on bed 9. Turn and reposition every 1-2 hours in bed and every 1 hour in chair as tolerated 10. Weight shifts every 15 minutes while up in chair 11. Offloading with pillows or device to keep heels elevated off bed 12. Monitor skin at least every shift 13. Inspect under medical devices twice a day WOUND TREATMENT RECOMMENDATIONS: Keep dressings intact until follow up appointment with Dr. Maurer per Dr. Britton. Patient states he will make his follow up appointment with Dr. Maurer when he is discharged.
--- NOTE | 2019-07-03 10:30 | NUR ---
PODIATRY IN TO SEE PATIENT AT THIS TIME.
[2019-07-03] MEDS ORDERED: HYDROCODONE-AC1 EAC1 PO (11:32)
[2019-07-03] MEDS ORDERED: INDOMETHACIN50 MG PO (11:32)
--- NOTE | 2019-07-03 11:59 | NUR ---
Streetcar Repairer Helper in to talk to patient. Patient states lives at HOME with . There are FEW steps in the home. Physician: ZEN Pharmacy: [facility] services: [facility] Patient's level of ADLs: MINIMAL ASSIST Patient has working utilities: YES DME: RECEIVING HOME IV ANTIBIOTICS AT THIS TIME Follow-up physician's appointment after d/c: WILL BE MADE BY HOSPITALIST NURSE DIRECTOR ON DISCHARGE Does patient want to access PORTAL?: NO Discharge plan PT LIVES AT HOME WITH HIS AND PALNS TO RETURN HOME ON DISCHARGE. PT IS CURRENLY UNDER SERVICES OF [facility] AND GETTING IV ANTIBIOTICS THROUGH [facility]. DENIES HE WILL HAVE ANY OTHER NEEDS ON DISCHARGE. PT WILL RETURN HOME ON DISCHARGE WITH RESUMPTION OF OV. WILL CONTINUE TO FOLLOW. WILL HAVE A RIDE HOME PER PT.. NAHEED YAP
[2019-07-03 12:00] VITALS: BP 134/80
--- NOTE | 2019-07-03 12:25 | NUR ---
RESUME HOME HEALTH FAXED TO [facility].
--- NOTE | 2019-07-03 12:55 | NUR ---
Nutritional Support Services Note: Pt has wounds to right 2nd toe and left great toe. Ht.5'11 Wt.351#. Appetite is good for meals, he eats 100% of all meals. Encouraged healthy eating and adequate protein and calorie intake. Pt receptive, encouraged follow up if needed. No other Nutrition intervention needed at this time. Will follow as needed. Mayra Hudson Rdn Ld
--- NOTE | 2019-07-03 13:03 | NUR ---
DISCHARGE PHOTOS OBTAINED OF PATIENTS WOUNDS 1,2, AND 3. UNABLE TO OBTAIN DISCHARGE PHOTOS OF WOUNDS 4 AND 5 DUE TO FEET/LEGS BEING WRAPPED BY PODIATRY AND ORDERS BY PODIATRY TO NOT REMOVE DRESSINGS UNTIL PATIENT IS SEEN IN OFFICE TOMORROW 07/04/19.
[2019-07-03 16:00] VITALS: BP 125/76
--- NOTE | 2019-07-03 17:30 | NUR ---
LEAVING IN CARE OF WITH PA VIA WHEELCHAIR.
== END 2019-07-03 17:30 | disposition home health service (06) | DRG 205 ==
LOC: ED 18:09 → EDHOLD 18:30 → 5E 18:30
PROVIDERS: Emergency Medicine; Internal Medicine; Registered Nurse; ADMIT Internal Medicine
DX: M94.0 Chondrocostal junction syndrome [Tietze] (principal); N17.0 Acute kidney failure with tubular necrosis; M86.171 Other acute osteomyelitis, right ankle and foot; I50.32 Chronic diastolic (congestive) heart failure; E44.0 Moderate protein-calorie malnutrition; Z68.42 Body mass index [BMI] 45.0-49.9, adult; M10.9 Gout, unspecified; I48.91 Unspecified atrial fibrillation; E11.65 Type 2 diabetes mellitus with hyperglycemia; J45.909 Unspecified asthma, uncomplicated; E66.01 Morbid (severe) obesity due to excess calories; I11.0 Hypertensive heart disease with heart failure; E83.41 Hypermagnesemia; Z79.01 Long term (current) use of anticoagulants; Z90.49 Acquired absence of other specified parts of digestive tract; Z79.4 Long term (current) use of insulin; Z87.11 Personal history of peptic ulcer disease; Z72.89 Other problems related to lifestyle; Z82.3 Family history of stroke; Z82.49 Family history of ischemic heart disease and other diseases of the circulatory system; Z88.5 Allergy status to narcotic agent

== ENCOUNTER 2019-07-12 12:50 | Inpatient (IN) | payer BC ==
[~2019-07-12] VITALS: Ht 180.3 cm; Wt 159.4 kg
--- NOTE | ~2019-07-12 | EKG ---
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
--- NOTE | ~2019-07-12 | PR ---
[place], [place] PROGRESS NOTE NAME: SVEN AGUDELO UNIT #: [id number] ROOM: 515 DOCTOR: MIRIAM AREVALO MD BIRTHDATE: [birth year] DOS: 07/15/2019 CARDIOLOGY PROGRESS NOTE REASON FOR VISIT: Atrial fibrillation, heart failure. HISTORY OF PRESENT ILLNESS: The patient is feeling better. His edema is slightly improved. He is less short of breath. No PND, no orthopnea. No chest pain or palpitation, no dizziness. REVIEW OF SYSTEMS: Review of 10 systems negative except as mentioned above. PHYSICAL EXAMINATION: VITAL SIGNS: Reviewed. Weight was 164 kilos. RHYTHM STRIPS: The patient is in sinus rhythm. GENERAL: Alert, comfortable, in no acute distress. The patient is sitting in the chair. HEENT: Pupils are round and equal. No jaundice. Tongue was moist. Pharynx clear. NECK: Supple, no distended neck veins, no carotid bruit. CHEST: Symmetrical, nontender. LUNGS: A few scattered rhonchi and diminished at bases. HEART: Irregular, no S3. ABDOMEN: Morbidly obese, nontender. EXTREMITIES: Showed 1 to 2+ edema. The patient has bilateral dressing to the lower extremities and ankles. Distal pulses unable to palpate due to dressing. SKIN: Warm and dry. Unable to examine lower extremities. NEUROLOGIC: Alert. No focal neurologic deficit. RECTAL: Deferred. GENITOURINARY: Deferred. LABORATORY DATA: Reviewed. Hemoglobin 10.8, creatinine 1.8. MEDICATIONS: Reviewed. IMPRESSION: 1. Acute heart failure with preserved ejection fraction. 2. Chronic atrial fibrillation. 3. Super morbid obesity. 4. Hypertension. 5. Chronic kidney disease. 6. Mild anemia. 7. Possible sleep apnea. RECOMMENDATIONS: 1. Change his Bumex to 2 mg IV q.12 hours from tomorrow. Continue to monitor his daily weights, ins and outs and renal function. 2. He will check with family doctor regarding outpatient sleep study for sleep apnea. [place], [place] PROGRESS NOTE NAME: SVEN AGUDELO UNIT #: [id number] ROOM: 515 DOCTOR: MIRIAM AREVALO MD BIRTHDATE: [birth year] Risk factor modification discussed especially diet, exercise, weight loss and also low salt diet. Above recommendations discussed with the patient and his family member at bedside and all questions were answered. MIRIAM AREVALO MD CM:AKILAH [id number] MIRIAM AREVALO MD 07/16/19 1202 interface
--- NOTE | ~2019-07-12 | PR ---
[place], [place] PROGRESS NOTE NAME: JACINTATSVEN UNIT #: [id number] ROOM: 515 DOCTOR: MIRIAM AREVALO MD BIRTHDATE: [birth year] DOS: 07/14/2019 REASON FOR VISIT: CHF and atrial fibrillation. HISTORY OF PRESENT ILLNESS: The patient is somewhat feeling better, still has edema. Denies any PND or orthopnea. Slightly short of breath. No chest pains. No palpitations. No dizziness or syncope. No fevers or chills. REVIEW OF SYSTEMS: Review of 10 systems negative except as mentioned above. PHYSICAL EXAMINATION: VITAL SIGNS: The patient was in sinus rhythm on the monitor. Blood pressure 140/88, pulse 80, respiratory rate 18, weight 164.8 kg, BMI 51. GENERAL: Alert, comfortable, in no acute distress. NECK: Supple, no distended neck veins, no carotid bruit. CHEST: Symmetrical, nontender. LUNGS: A few scattered rhonchi. Lungs slightly diminished at bases, but good air entry bilaterally. HEART: Regular rhythm, no S3. Grade 1/6 systolic murmur. ABDOMEN: Morbidly obese. Bowel sounds normal. EXTREMITIES: Showed 1 to 2+ edema. The patient had dressing to both lower extremities and ankles. Distal pulses are unable to examine due to dressing. NEUROLOGIC: Alert with no focal neurologic deficit. RECTAL: Deferred. GENITOURINARY: Deferred. PSYCHIATRIC: Alert with good mood and affect. LABORATORY DATA: Reviewed. Hemoglobin 10.8, creatinine 1.8. CURRENT MEDICATIONS: Reviewed. IMPRESSION: 1. Acute on chronic heart failure with preserved ejection fraction. 2. Paroxysmal atrial fibrillation. 3. Chronic kidney disease. 4. Hypertension. 5. Super morbid obesity. 6. Anemia. RECOMMENDATIONS: Continue his Bumex and monitor his blood pressures and renal function. He will need outpatient sleep study to rule out sleep apnea. The above recommendation discussed with the patient and all questions were answered. No family at bedside at the time of my examination. Risk factor modification was discussed. [place], [place] PROGRESS NOTE NAME: SVEN AGUDELO UNIT #: [id number] ROOM: 515 DOCTOR: MIRIAM AREVALO MD BIRTHDATE: [birth year] MIRIAM AREVALO MD CM:PNTRANS [id number] MIRIAM AREVALO MD 07/14/19 2251 interface
--- NOTE | ~2019-07-12 | CON ---
[place], [place] REPORT OF CONSULTATION NAME: JACINTATSVEN UNIT #: [id number] ROOM: 515 DOCTOR: QUINTIN CHAMBERS BIRTHDATE: [birth year] DOS: 07/13/2019 CARDIOLOGY CONSULTATION REASON FOR CONSULTATION: CHF. REQUESTING PHYSICIAN: ____ HISTORY OF PRESENT ILLNESS: The patient is a 64-year-old gentleman who I saw in consultation on 06/26/2019, when he had presented with new-onset atrial fibrillation along with osteomyelitis of the foot. He also had diastolic heart failure at that time. He had morbid obesity, hypertension and diabetes with hyperlipidemia as well. We started him on anticoagulation for elevated stroke risk back at the end of May and he was discharged home. He had one readmission apparently related to shoulder pain and was discharged home in the beginning of July. Over the past subsequent weeks, he has had progressive shortness of breath, worsening lower extremity edema, abdominal distention, and early satiety. Denies any chest pain. He presented to the hospital yesterday and was admitted with possible exacerbation of congestive heart failure. He had received some IV furosemide, and he is negative of about 1.2 liters. He states he is still short of breath and still distended in the abdomen, not able to eat much. REVIEW OF SYSTEMS: Negative except as described above. PAST MEDICAL HISTORY: Hypertension, type 2 diabetes, obesity, heart failure with preserved ejection fraction, recently diagnosed persistent atrial fibrillation with a CHADS2-VASc score of at least 4, gout, likely untreated sleep apnea. Osteomyelitis of the feet, status post recent bone biopsies and on antibiotics. PAST SURGICAL HISTORY: Appendectomy, inguinal hernia, tonsillectomy, recent bone biopsies in the toes. SOCIAL HISTORY: Denies smoking or drug use. He drinks alcohol occasionally. 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 FAMILY HISTORY: Both parents lived into the 90s and there is no history of premature coronary artery disease. HOME MEDICATIONS: Currently include carvedilol 25 mg p.o. b.i.d., furosemide 40 mg p.o. b.i.d., rivaroxaban 20 mg daily, losartan 50 mg daily. He is also on daptomycin, glyburide, multivitamin. ALLERGIES: Listed to CODEINE. PHYSICAL EXAMINATION: VITAL SIGNS: Afebrile, pulse 93, respirations 18, blood pressure 129/79, saturating 98% on room air. GENERAL APPEARANCE: He is morbidly obese-appearing middle-aged male, sitting in [place], [place] REPORT OF CONSULTATION NAME: SVEN AGUDELO UNIT #: [id number] ROOM: [facility] DOCTOR: QUINTIN CHAMBERS BIRTHDATE: [birth year] the chair, in no distress, wakes up easily. HEENT: Shows moist mucous membranes. NECK: Supple. Jugular venous pressure difficult to assess but appears elevated. No carotid bruits. RESPIRATORY: There are some basilar rales and lung sounds are diminished. CARDIOVASCULAR: Irregular rhythm with a normal rate. There are no appreciable murmurs. ABDOMEN: Obese. Distended. It is firm. It is nontender. EXTREMITIES: Warm, well perfused. Both bilateral lower extremities are wrapped and his toes are covered from his recent biopsies. He has pitting edema well up into the thighs. NEUROLOGICAL: Nonfocal. SKIN: No lesions or rashes, but his feet and legs are wrapped up. LABORATORY DATA: Hemoglobin 10.8, platelets 163. Hemoglobin was 12.4 towards the end of May before we started anticoagulation. Potassium is 3.8, bicarbonate 33, BUN 42, creatinine 1.55. Creatinine was 1.87 on admission and it was 1.0 on 06/24/2019. Hemoglobin A1c is 8.3%. Magnesium 2.6. LFTs normal. Three sets of troponins have been negative. ProBNP at admission was 9000. Chest x-ray showed no acute findings. Abdomen and pelvis CT showed hepatic steatosis along with subcutaneous edema suggesting anasarca, bilateral pleural effusions, diverticulosis. EKG from admission showed atrial fibrillation, 82 beats per minute with low voltage in the precordial leads. No acute ST or T-wave abnormalities. He remains in atrial fibrillation on the monitor with occasional episodes of bradycardia. Echocardiogram from May of this year was a difficult study because of body habitus, but it showed normal LV systolic function with an EF of 60-65%, unable to assess details of the wall motion and ascending aorta appeared dilated at 3.9 cm, actually index for body surface area may be within normal limits. IMPRESSION: 1. Acute on chronic diastolic congestive heart failure, appears grossly volume overloaded on exam. 2. Persistent atrial fibrillation, CHADS2-VASc score of 4, on rivaroxaban and carvedilol. 3. Morbid obesity. 4. Likely undiagnosed and untreated sleep apnea. 5. Anemia after initiation of anticoagulation. 6. Acute kidney injury, likely cardiorenal syndrome. 7. Osteomyelitis of the toe. 8. Mildly dilated ascending aorta. 9. Hypertension. 10. Diabetes. RECOMMENDATION: 1. I think he needs aggressive diuresis. [place], [place] REPORT OF CONSULTATION NAME: SVEN AGUEDLO UNIT #: [id number] ROOM: [facility] DOCTOR: QUINTIN CHAMBERS BIRTHDATE: [birth year] 2. We will initiate bumetanide infusion 0.25 mg per hour with strict monitoring of I's and O's, daily weights with low sodium diet. 3. Careful attention to kidney function and electrolytes. 4. Heme check stools since he has had a hemoglobin drop since initiating anticoagulation. 5. Otherwise, continue his carvedilol, losartan and rivaroxaban. 6. He needs an outpatient sleep study. 7. I plan to cardiovert him as an outpatient to get him back into normal sinus rhythm, but no urgency to this as his heart rate is well controlled. 8. Counseled on importance of weight loss and risk factor modification. Thank you for the consultation. Dr. QUINTIN CHAMBERS MD CM:CONSTR:REPORT OF CONSULTATION 1352 07/14/19 1003 interface
--- NOTE | ~2019-07-12 | EKG ---
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
--- NOTE | ~2019-07-12 | CON ---
[place], [place] REPORT OF CONSULTATION NAME: JACINTATSVEN UNIT #: [id number] ROOM: 515 DOCTOR: FREDO DAVIDSON,JANUARY BIRTHDATE: [birth year] DOS: 07/14/2019 HISTORY OF PRESENT ILLNESS: This is a patient who was seen previously by Dr. Hancock. He was discharged on 06/29 on IV vancomycin ordered for 6 weeks. He had had biopsies of his right second toe and his left great toe. Reviewing the prior charts, his right second toe grew MSSA. His left first toe grew Morganella. He was readmitted with shortness of breath from the [facility] where he was at on 07/12. He has been diagnosed with [id number] CHF and now is on a bumetanide drip, which he has been responding well to. He states his breathing has improved. He continues with some cough with white sputum. No fevers or chills. Had some nausea at the assisted where he was at. No fevers since admission either per review of the chart. ID is consulted for management of osteomyelitis of his toes. He was started on Levaquin, Zosyn and his vancomycin continued possibly out of concern for healthcare-associated pneumonia. CT of his abdomen and pelvis showed bilateral pleural effusions. Chest x-ray showed mild vascular congestion on the . Admitting chest x-ray, however, was red with left upper lobe pneumonia. ID is consulted for possible pneumonia as well. WBCs on admission were 8.6. PAST MEDICAL HISTORY: As above as well as acute kidney injury with acute tubular necrosis, AFib, diabetes, gout, hypertension, morbid obesity, appendectomy, inguinal hernia, tonsillectomy and umbilical hernia. SOCIAL HISTORY: Nonsmoker, nondrinker, no illicit drug use. FAMILY MEDICAL HISTORY: Father at the age of 91 from CVA. Mother at the age of 91 from old age. Both parents had hypertension. ALLERGIES: Include ALOE and CODEINE. CURRENT MEDICATIONS: Levaquin, Tums, Humalog, Zosyn, Xarelto, multivitamin, Protonix, Coreg, Ventolin, Restoril, Zofran and milk of mag. LABORATORY DATA: WBC 7.6, platelets 163. Admitting blood cultures are sterile. BUN 38, creatinine 1.8. LFTs within normal limits. Of note, his baseline creatinine in May, he was 1.18 and 1.2. REVIEW OF SYSTEMS: As above in history of present illness. States he did have some nausea at the assisted, also has had increasing edema of his lower extremities. Further review of systems is unremarkable. PHYSICAL EXAMINATION: VITAL SIGNS: Temperature 98.6, pulse 85, respirations 20, BP 148/82. GENERAL: 64-year-old morbidly obese male, in no acute distress. HEAD, EYES, EARS, NOSE AND THROAT: Normocephalic, no thrush. NECK: Supple. LUNGS: Clear to auscultation bilaterally. Respirations even and unlabored. HEART: Irregular rhythm. No murmur appreciated. ABDOMEN: Soft, obese, nontender. Positive bowel sounds. EXTREMITIES: With pitting edema +2 to 3 bilateral lower extremities, bilateral [place], [place] REPORT OF CONSULTATION NAME: JACINTATSVEN UNIT #: [id number] ROOM: [facility] DOCTOR: FREDO DAVIDSONJANUARY BIRTHDATE: [birth year] feet are wrapped as per Podiatry. He has PICC in the left upper extremity. Dressing dry and intact. SKIN: Warm, dry, free of rashes. ASSESSMENT AND PLAN: Osteomyelitis of the left great toe with cultures growing Morganella, osteomyelitis of the right second toe growing methicillin-sensitive Staphylococcus aureus. Both pathology reports showed chronic osteomyelitis from 06/27 and cultures are also from 06/27. At this point, he also appears to possibly have an acute kidney injury due to the IV vancomycin, which has been stopped. At this point, we will stop the Levaquin, stop the Zosyn, start Rocephin 2 grams IV q.24 hours for his osteomyelitis. JANUARY LETY YOO Alexus Hancock MD CM:CONSTR:REPORT OF CONSULTATION 43 07/14/192116 interface
--- NOTE | ~2019-07-12 | PR ---
[place], [place] PROGRESS NOTE NAME: JACINTATSVEN UNIT #: [id number] ROOM: [facility] DOCTOR: FREDO DAVIDSONKRISTINE BIRTHDATE: [birth year] DOS: 07/15/2019 SUBJECTIVE: The patient is being followed for right second toe and left great toe chronic osteomyelitis. His pathology from both toes did demonstrate chronic osteo from end of May. His cultures grew MSSA and Morganella. He was originally on IV vancomycin at the [facility]. He developed fuyxe-bl-aqqurye CHF as well as some acute kidney injury. He is now on a Bumex drip and is responding well to that. His creatinine remains elevated. Antibiotics were narrowed to Rocephin yesterday. He is alert and oriented, sitting up in a chair, feels well. Denies fevers, chills, nausea, vomiting, or diarrhea. No shortness of breath, some cough with white sputum. No pain. No fevers. LABORATORY DATA: WBC 7.7, platelets 190. BUN 33, creatinine 1.87. Vancomycin level of 48.8. PHYSICAL EXAMINATION: VITAL SIGNS: Temperature 98.6, pulse 84, respirations 16, BP 139/76. GENERAL: A 64-year-old morbidly obese male, in no acute distress. HEAD, EYES, EARS, NOSE AND THROAT: Normocephalic, no thrush. LUNGS: Clear to auscultation bilaterally. Respirations even and unlabored. HEART: Irregular rhythm. No murmur appreciated. ABDOMEN: Soft, obese, nontender. EXTREMITIES: Lower extremity edema, improving. It is wrapped bilateral lower extremities to knees. SKIN: Warm, dry, free of rashes. PICC in place. Dressing dry and intact. ASSESSMENT: Osteomyelitis of the left great toe as well as the right second toe. Pathology showed chronic osteomyelitis from both from 06/27/2019. Cultures grew MSSA and Morganella. The patient has acute kidney injury. PLAN: At this point, with very high vancomycin level, antibiotics have been narrowed down to Rocephin, which still anticipate 6 weeks of IV antibiotics, total from 06/27/2019. JANUARY LETY YOO [place], [place] PROGRESS NOTE NAME: COVERTSVEN UNIT #: [id number] ROOM: [facility] DOCTOR: FREDO DAVIDSON,JANUARY BIRTHDATE: [birth year] Alexus MD Santi CM:AKILAH [id number] [phone] FREDO DAVIDSON 07/15/19 164 interface
--- NOTE | ~2019-07-12 | EKG ---
[place], [place] ELECTROCARDIOGRAM REPORT NAME: JACINTATSVEN UNIT #: [id number] ROOM: 515 DOCTOR: HANNAH DRAFT REPORT BIRTHDATE: [birth year] [facility] Test Date: 2019-07-12 Test Time: 19:13:14 Pat Name: SVEN AGUDELO Department: Room: [facility] Gender: M [employer] Drawer In: LOU : 1955 Requested By: DIMPLE MOSES Order Number: [id number] Reading MD: Heber Mcbride MD Measurements Intervals Lyons Rate: 80 P: IA: QRS: 25 QRSD: 76 T: 86 QT: 401 QTc: 463 Interpretive Statements Atrial fibrillation Low voltage, precordial leads Compared to ECG 07/01/2019 23:43:38 No significant changes Electronically Signed On 07-16-2019 9:51:32 PDT by Heber Mcbride MD CM:EKGRPT:ELECTROCARDIOGRAM REPORT 12 [id number] DIMPLE DALEY DRAFT REPORT DIMPLE MOSES DO
--- NOTE | ~2019-07-12 | PR ---
[place], [place] PROGRESS NOTE NAME: SVEN AGUDELO UNIT #: [id number] ROOM: 515 DOCTOR: MICKEY ROPER,MIRIAM BIRTHDATE: [birth year] DOS: 07/16/2019 REASON FOR VISIT: Heart failure and atrial fibrillation. HISTORY OF PRESENT ILLNESS: The patient is feeling better. His edema is improved and he is less short of breath. Denies any chest pain, PND or orthopnea. No palpitations or dizziness. REVIEW OF SYSTEMS: Review of 8 systems negative except as mentioned above. PHYSICAL EXAMINATION: VITAL SIGNS: Blood pressure 150/80, pulse 93, respiratory rate 16, weight 159 kilos with a BMI of 49. RHYTHM STRIPS: The patient in atrial fibrillation. GENERAL: Alert, comfortable, in no acute distress. HEENT: Pupils are round and equal, no jaundice. NECK: Supple, no distended neck veins, no carotid bruit. CHEST: Symmetrical, nontender. LUNGS: Clear to auscultation bilaterally. HEART: Irregularly irregular. ABDOMEN: Benign. Bowel sounds normal. EXTREMITIES: Showed 1+ edema. The patient has dressing to both lower extremities and feet. Distal pulses unable to palpate. NEUROLOGIC: Alert with no focal neurologic deficit. LABORATORY DATA: Reviewed. Creatinine is 1.84 today. It was 1.87 yesterday. Hemoglobin 12.7. IMPRESSION: 1. Acute on chronic heart failure with preserved ejection fraction. 2. Chronic atrial fibrillation. 3. Hypertension. 4. Morbid obesity. 5. Chronic kidney disease. RECOMMENDATIONS: 1. Continue current medication. 2. Change the Bumex to 2 mg p.o. twice a day. He was on Lasix 40 twice a day at home. 3. Continue Xarelto for anticoagulation. 4. We will check his BMP on Tuesday for his renal function. The patient is anticipating discharge today with home antibiotics. There was no family at bedside at the time of examination. Case was discussed with Dr. Reich who is his primary care physician today. Followup with [facility] in 2-3 weeks or sooner if possible. Above recommendation discussed with the patient and all questions were answered. [place], [place] PROGRESS NOTE NAME: SVEN AGUDELO UNIT #: [id number] ROOM: [facility] DOCTOR: MIRIAM AREVALO MD BIRTHDATE: [birth year] MIRIAM AREVALO MD CM:PNTRANS [id number] MIRIAM AREVALO MD 07/17/19 0237 interface
[~2019-07-12 12:50] MED LIST changes: +HYDROCODONE-AC1 EAC1 PO; +INDOMETHACIN50 MG PO
[2019-07-12 12:52] VITALS: BP 100/76
[2019-07-12 13:11] LABS: BASO % 0.4 % (0.0-1.0); EOS # 0.1 10*3/uL (0.0-0.4); EOS % 1.3 % (1.0-4.0); HEMATOCRIT 35.6 % (42.0-52.0); HEMOGLOBIN 11.3 g/dl (14.0-18.0); LYMPH # 1.2 10*3/uL (1.3-4.4); LYMPH % 14.5 % (27.0-41.0); MEAN CELL VOLUME 92.7 fl (80.0-94.0); MEAN CORPUSCULAR HGB 29.4 pg (27.0-31.0); MEAN CORPUSCULAR HGB CONC 31.7 g/dl (33.0-37.0); MEAN PLATELET VOLUME 10.6 fl (9.6-12.3); MONO # 0.7 10*3/uL (0.1-1.0); MONO % 8.1 % (3.0-9.0); NEUT # 6.5 10*3/uL (2.3-7.9); NEUT % 75.1 % (47.0-73.0); PLATELET COUNT AUTOMATED 205 10*3/uL (130-400); RED BLOOD COUNT 3.84 10*6/uL (4.50-5.90); RED CELL DISTRI WIDTH 13.9 % (0-14.5); WHITE BLOOD COUNT 8.6 10*3/uL (4.8-10.8)
[2019-07-12 13:22] LABS: ACT PARTIAL THROMBO TIME 36.9 SECONDS (20.0-32.1); INTERNATIONAL NORM RATIO 1.7 (2.0-3.5)
--- NOTE | 2019-07-12 13:23 | NUR ---
WOUNDS: PT EXPLAINS THAT HE RECENTLY HAD THE LEFT GREAT TOE DIABETIC ULCER DEBRIDED BY DR CHEN. THERE IS A LARGE LAURA-BOOT TYPE DRESSING IN PLACE FROM DISTAL TOES TO KNEE AND A WALKING CAST. PT STATES THE FOOT DR HAS DIRECTED HIM TO NOT DISTURB THIS DRESSING UNTIL NEXT WEEK. ALSO, DEBRIDEMENT OF RIGHT GREAT TOE AND 2ND TOE IN A SIMILAR FASHING WITH A SIMILAR LAURA-BOOT DRESSING WITH THE SAME INSTRUCTIONS. DR MOSES MADE AWARE, STATES NOT TO DISTURB THESE DRESSINGS FOR WOUND PHOTOS AND THE PATIENT HIMSELF REFUSES TO HAVE DRESSINGS REMOVED.
[2019-07-12 13:31] LABS: ALBUMIN 3.1 gm/dl (3.1-4.5); CREATININE 1.87 mg/dL (0.70-1.30); TOTAL PROTEIN 7.3 gm/dL (6.4-8.2); TROPONIN I 0.034 ng/ml (<0.045)
[2019-07-12 14:39] VITALS: BP 143/82
--- NOTE | 2019-07-12 14:40 | NUR ---
PT RESTING IN BED WITH FAMILY AT BEDSIDE. NO SIGNS OF DISTRESS AT THIS TIME. HE STATES THAT HIS SYMPTOMS HAVE NOT CHANGED. WILL CONTINUE TO MONITOR. CALL [facility] WITH IN REACH.
--- NOTE | 2019-07-12 16:04 | NUR ---
PT HAS BED ASSIGNED. NURSE STATES THAT SHE WILL CONTACT US WHEN SHE IS READY FOR US TO BRING THE PT TO THE FLOOR.
[2019-07-12 16:31] VITALS: BP 157/95
--- NOTE | 2019-07-12 16:33 | NUR ---
STILL AWAITING FOR NURSE REPORT. PT IS IN HIS ROOM IN NO ACUTE DISTRESS. HE IS SLEEPING. HE DID REMOVE HIS NASAL CANNULA. PT IS 99% ON RA. PT WITH 650ML URINE OUTPUT. WILL CONTINUE TO MONITOR.
--- NOTE | 2019-07-12 17:10 | NUR ---
FLOOR NOW CALLS AND ARE AVAILIBLE TO ACCEPT PT FOR ADMISSION.
[2019-07-12 17:20] VITALS: BP 152/92
--- NOTE | 2019-07-12 17:20 | NUR ---
A 64, admitted to , under the services of KIKO [place] DO with a diagnosis of ACUTE HEART FAILURE. Chief complaint is SHORT OF BREATH. Patient arrived via stretcher from ER. Monitor applied. Initial assessment completed. Vital signs taken and recorded. KIKO B[place]INGH[place] DO notified of admission to the unit. Orders received. See assessment for past medical history, medications and allergies. Patient and/or family oriented to unit. [facility] visitation policy reviewed. Clothing/patient valuable form completed. TIP NUNEZ
--- NOTE | 2019-07-12 17:40 | NUR ---
PATIENT EDUCATED TO THE POLICY HERE THAT I NEED TO REMOVE HIS LAURA BOOTS. PATIENT UPSET THAT DR. ABREU JUST PUT THEM ON YESTERDAY 07/11 AND THEY ARE NOT TO BE REMOVED.
[2019-07-12] MEDS ORDERED: CUBICIN500 MG IV (17:56)
--- NOTE | 2019-07-12 18:00 | NUR ---
DR. BANKS NOTIFIED PATIENT DOES NOT WANT LAURA BOOTS REMOVED. SHE STATED OK JUST DOCUMENT THAT HE REFUSED.
--- NOTE | 2019-07-12 18:53 | NUR ---
PATIENT JUST ATE BOX LUNCH DOCTOR MARISOL AWARE THAT WILL DO IN 4HRS. NOTIFIED ANTONIA IN CT.
[2019-07-12 20:00] VITALS: BP 174/96
--- NOTE | 2019-07-12 22:30 | NUR ---
PT DOWN TO CT AT THIS TIME.
--- NOTE | 2019-07-12 23:06 | NUR ---
PT RETURNS FROM CT AT THIS TIME.
[2019-07-13] VITALS: BP 142/65
[2019-07-13 00:10] VITALS: BP 162/88
--- NOTE | 2019-07-13 01:00 | NUR ---
PT RESTING IN CHAIR IN ROOM, RESPIRATIONS EASY AND UNLABORED. NO S/S OF DISTRESS. NO COMPLAINTS VOICED. WILL CONTINUE TO MONITOR. CALL LIGHT IN REACH.
--- NOTE | 2019-07-13 05:49 | NUR ---
COVERT,SVEN Florentino [id number] Please refer to the physician's history and physical for past medical history, comorbid conditions, and allergies. Diagnosis: ACUTE HEART FAILURE Vito Score: 18,AT RISK WOUND DESCRIPTIONS: This nurse went to evaluate patient for skin impariments. He stated that he follows with Dr. Maurer every tuesday and his dressing are to remain intact to bilateral lower extermities until his follow up appointment. He stated he will continue to follow up with Dr. Maurer upon discharge. No stike-through drainage noted. No reddness surrounding dressing at time of assessment. Surface the patient is resting on: Position Pro SKIN PREVENTION RECOMMENDATION: 1. Pressure redistribution support surface as appropriate 2. Elevate heels 3. Remove boots/TEDS every shift and reapply 4. Head of bed 30 degrees as tolerated 5. Assess nutrition and hydration 6. Manage moisture 7. Avoid the use of containment devices while in bed 8. Use absorptive products on surfaces limit layers of linens on bed 9. Turn and reposition every 1-2 hours in bed and every 1 hour in chair as tolerated 10. Weight shifts every 15 minutes while up in chair 11. Offloading with pillows or device to keep heels elevated off bed 12. Monitor skin at least every shift 13. Inspect under medical devices twice a day WOUND TREATMENT RECOMMENDATIONS: Consult podiatry since this is a known patient and he follows with Dr. Maurer outside of facility.
--- NOTE | 2019-07-13 07:02 | NUR ---
LABS DRAWN FROM PT PICC LINE AT THIS TIME. LINE FLUSHING WELL, GOOD BLOOD RETURN. NO COMPLAINTS FROM PATIENT. CALL LIGHT IN REACH.
[2019-07-13 07:06] LABS: BASO % 0.4 % (0.0-1.0); EOS # 0.1 10*3/uL (0.0-0.4); EOS % 1.7 % (1.0-4.0); HEMATOCRIT 34.7 % (42.0-52.0); HEMOGLOBIN 10.8 g/dl (14.0-18.0); LYMPH # 1.2 10*3/uL (1.3-4.4); LYMPH % 15.7 % (27.0-41.0); MEAN CELL VOLUME 92.5 fl (80.0-94.0); MEAN CORPUSCULAR HGB 28.8 pg (27.0-31.0); MEAN CORPUSCULAR HGB CONC 31.1 g/dl (33.0-37.0); MEAN PLATELET VOLUME 10.5 fl (9.6-12.3); MONO # 0.6 10*3/uL (0.1-1.0); MONO % 7.5 % (3.0-9.0); NEUT # 5.6 10*3/uL (2.3-7.9); NEUT % 74.2 % (47.0-73.0); PLATELET COUNT AUTOMATED 163 10*3/uL (130-400); RED BLOOD COUNT 3.75 10*6/uL (4.50-5.90); RED CELL DISTRI WIDTH 13.9 % (0-14.5); WHITE BLOOD COUNT 7.6 10*3/uL (4.8-10.8)
[2019-07-13 07:18] LABS: ALBUMIN 3.1 gm/dl (3.1-4.5); CREATININE 1.55 mg/dL (0.70-1.30); POTASSIUM 3.8 mmol/L (3.5-5.1)
[2019-07-13 07:29] LABS: PHOSPHOROUS 4.6 mg/dL (2.5-4.9); THYROID STIM HORMONE (HS) 1.25 uIU/ml (0.358-4.75); TOTAL PROTEIN 6.9 gm/dL (6.4-8.2)
[2019-07-13 07:42] LABS: INTERNATIONAL NORM RATIO 1.3 (2.0-3.5)
[2019-07-13 08:00] VITALS: BP 110/72
[2019-07-13 09:02] LABS: VITAMIN D, 25-HYDROXY 21.9 ng/mL (30-100)
--- NOTE | 2019-07-13 09:32 | NUR ---
RESIDENT WITH DR PINK HERE TO SEE PT
--- NOTE | 2019-07-13 10:49 | NUR ---
Soco GARCIA notified of wound care recommendations.
--- NOTE | 2019-07-13 11:21 | NUR ---
DR CHAMBERS HERE TO SEE PT
[2019-07-13 12:00] VITALS: BP 129/79
--- NOTE | 2019-07-13 14:49 | NUR ---
RESUME HOME HEALTH ORDER FAXED TO [facility].
[2019-07-13 16:00] VITALS: BP 150/77
--- NOTE | 2019-07-13 16:47 | NUR ---
CONSULT CALLED TO DR ARMIJO ANSWERING SERVICE
--- NOTE | 2019-07-13 17:51 | NUR ---
SPOKE WITH DR ALEKSANDER ALFORD CONSULT
[2019-07-13 20:00] VITALS: BP 157/86
[2019-07-14] VITALS: BP 123/81
[2019-07-14 06:44] LABS: CREATININE 1.8 mg/dL (0.70-1.30); POTASSIUM 3.8 mmol/L (3.5-5.1)
[2019-07-14 08:00] VITALS: BP 146/88
[2019-07-14 12:00] VITALS: BP 136/68
[2019-07-14 16:00] VITALS: BP 148/82
[2019-07-14 20:00] VITALS: BP 170/89
[2019-07-15] VITALS: BP 138/63
[2019-07-15 06:38] LABS: CREATININE 1.87 mg/dL (0.70-1.30); POTASSIUM 3.6 mmol/L (3.5-5.1)
[2019-07-15 06:59] LABS: BASO # 0.1 10*3/uL (0.0-0.1); BASO % 0.6 % (0.0-1.0); EOS # 0.2 10*3/uL (0.0-0.4); EOS % 2.6 % (1.0-4.0); HEMATOCRIT 38.3 % (42.0-52.0); HEMOGLOBIN 12.1 g/dl (14.0-18.0); LYMPH # 1.2 10*3/uL (1.3-4.4); LYMPH % 16.1 % (27.0-41.0); MEAN CORPUSCULAR HGB 28.7 pg (27.0-31.0); MEAN CORPUSCULAR HGB CONC 31.6 g/dl (33.0-37.0); MEAN PLATELET VOLUME 10.8 fl (9.6-12.3); MONO # 0.7 10*3/uL (0.1-1.0); MONO % 9.1 % (3.0-9.0); NEUT # 5.5 10*3/uL (2.3-7.9); NEUT % 71.2 % (47.0-73.0); PLATELET COUNT AUTOMATED 190 10*3/uL (130-400); RED BLOOD COUNT 4.21 10*6/uL (4.50-5.90); RED CELL DISTRI WIDTH 13.9 % (0-14.5); WHITE BLOOD COUNT 7.7 10*3/uL (4.8-10.8)
[2019-07-15 08:00] VITALS: BP 140/78
[2019-07-15 12:00] VITALS: BP 104/53; BP 137/67
[2019-07-15 16:07] VITALS: BP 139/76
[2019-07-15 20:00] VITALS: BP 155/80
--- NOTE | 2019-07-15 20:20 | NUR ---
PT AMBULATORY TO BATHROOM AND BACK TO RECLINER CHAIR. NO C/O AT THIS TIME. BUMEX INFUSING WITH NO PROBLEM. DRESSINGS TO BILATERAL LEGS D/I. CALL LIGHT IN REACH. SEE SHIFT ASSESSMENT.
--- NOTE | 2019-07-15 22:00 | NUR ---
SITTING UP IN RECLINER. BSG-216, SEE EMAR. CALL LIGHT IN REACH.
[2019-07-16] VITALS: BP 127/63
--- NOTE | 2019-07-16 00:40 | NUR ---
PT SLEEPING IN RECLINER CHAIR. RESP-EASY AND REGULAR. CALL LIGHT IN REACH. SEE SHIFT ASSESSMENT.
--- NOTE | 2019-07-16 03:30 | NUR ---
24 HR chart check completed.
--- NOTE | 2019-07-16 04:00 | NUR ---
SLEEPING IN RECLINER CHAIR. RESP-EASY AND REGULAR. CALL LIGHT IN REACH.
--- NOTE | 2019-07-16 06:00 | NUR ---
SLEEPING INB ED, AWAKENS EASILY. BSG-240, SEE EMAR. NO C/O AT THIS TIME. CALL LIGHT IN REACH.
[2019-07-16 07:15] LABS: BASO % 0.5 % (0.0-1.0); EOS # 0.3 10*3/uL (0.0-0.4); EOS % 3.5 % (1.0-4.0); HEMATOCRIT 39.3 % (42.0-52.0); HEMOGLOBIN 12.7 g/dl (14.0-18.0); LYMPH # 1.4 10*3/uL (1.3-4.4); LYMPH % 17.4 % (27.0-41.0); MEAN CELL VOLUME 89.9 fl (80.0-94.0); MEAN CORPUSCULAR HGB 29.1 pg (27.0-31.0); MEAN CORPUSCULAR HGB CONC 32.3 g/dl (33.0-37.0); MEAN PLATELET VOLUME 10.5 fl (9.6-12.3); MONO # 0.7 10*3/uL (0.1-1.0); NEUT # 5.5 10*3/uL (2.3-7.9); NEUT % 69.2 % (47.0-73.0); PLATELET COUNT AUTOMATED 199 10*3/uL (130-400); RED BLOOD COUNT 4.37 10*6/uL (4.50-5.90); RED CELL DISTRI WIDTH 13.9 % (0-14.5)
[2019-07-16 07:21] VITALS: BP 149/72
[2019-07-16 07:41] LABS: CREATININE 1.84 mg/dL (0.70-1.30); POTASSIUM 3.5 mmol/L (3.5-5.1)
[2019-07-16 12:14] VITALS: BP 155/80
[2019-07-16] MEDS ORDERED: CEFTRIAXON2 GM/50 ML IV (14:10)
[2019-07-16] MEDS ORDERED: BUMETANIDE2 MG PO (14:11)
[2019-07-16] MEDS ORDERED: STARLIX60 M1 PO (14:16)
--- NOTE | 2019-07-16 14:17 | NUR ---
[facility] WILL NOT BE ABLE TO GIVE ANTIBIOTIC TONIGHT, CALLED RN ON FLOOR AND ASK HER TO GIVE IT BEFORE DISCHARGE TONIGHT THEN [facility] WILL START TOMORROW WITH ANTIBIOTICS. STATES SHE WILL CONTACT MD AND ASK.
--- NOTE | 2019-07-16 15:13 | NUR ---
ANTIBIOTICS SET UP FOR DELIVERY TO HOME BY NOON TOMORROW. [facility] AWARE AND WILL BE THERE TO INSTRUCT PT AND . SCRIP SENT TO [facility]. PT CAN BE DISCHARGED TONIGHT.
--- NOTE | 2019-07-16 17:46 | NUR ---
Discharge instructions reviewed with patient/family. Patient receptive and verbalizes understanding. Follow-up care arranged. Written instructions given to patient/family. DAVON MONSON
== END 2019-07-16 17:46 | disposition home health service (06) | DRG 682 ==
LOC: ED 12:50 → 5E 15:43 → EDHOLD 15:43 → 5E 15:59
PROVIDERS: Emergency Medicine; Family Medicine; Internal Medicine; Student in an Organized Health Care Education/Training Program; ADMIT Internal Medicine
DX: N17.0 Acute kidney failure with tubular necrosis (principal); I50.33 Acute on chronic diastolic (congestive) heart failure; J18.1 Lobar pneumonia, unspecified organism; E44.0 Moderate protein-calorie malnutrition; I13.0 Hypertensive heart and chronic kidney disease with heart failure and stage 1 through stage 4 chronic kidney disease, or unspecified chronic kidney disease; M86.8X7 Other osteomyelitis, ankle and foot; M86.672 Other chronic osteomyelitis, left ankle and foot; I48.1 Persistent atrial fibrillation; Z68.43 Body mass index [BMI] 50.0-59.9, adult; E11.69 Type 2 diabetes mellitus with other specified complication; E66.01 Morbid (severe) obesity due to excess calories; J45.909 Unspecified asthma, uncomplicated; M10.9 Gout, unspecified; E11.65 Type 2 diabetes mellitus with hyperglycemia; D64.9 Anemia, unspecified; E83.41 Hypermagnesemia; N18.9 Chronic kidney disease, unspecified; E78.5 Hyperlipidemia, unspecified; I77.811 Abdominal aortic ectasia; Z90.49 Acquired absence of other specified parts of digestive tract; Z90.89 Acquired absence of other organs; Z82.49 Family history of ischemic heart disease and other diseases of the circulatory system; Z82.3 Family history of stroke; Z22.321 Carrier or suspected carrier of Methicillin susceptible Staphylococcus aureus; Z88.6 Allergy status to analgesic agent; Z88.8 Allergy status to other drugs, medicaments and biological substances; Z79.899 Other long term (current) drug therapy

== ENCOUNTER → 2020-07-12 | Outpatient (CLI) | payer BC ==
[~2020-07-12] MED LIST changes: +BUMETANIDE2 MG PO; +CEFTRIAXON2 GM/50 ML IV; +CUBICIN500 MG IV; +STARLIX60 M1 PO
[2020-07-12 10:12] LABS: BASO % 0.4 % (0.0-1.0); EOS # 0.2 10*3/uL (0.0-0.4); EOS % 2.4 % (1.0-4.0); LYMPH # 1.6 10*3/uL (1.3-4.4); LYMPH % 22.8 % (27.0-41.0); MEAN CELL VOLUME 87.6 fl (80.0-94.0); MEAN CORPUSCULAR HGB 28.6 pg (27.0-31.0); MEAN CORPUSCULAR HGB CONC 32.7 g/dl (33.0-37.0); MEAN PLATELET VOLUME 10.3 fl (9.6-12.3); MONO # 0.7 10*3/uL (0.1-1.0); NEUT # 4.5 10*3/uL (2.3-7.9); NEUT % 63.8 % (47.0-73.0); PLATELET COUNT AUTOMATED 205 10*3/uL (130-400); RED BLOOD COUNT 4.68 10*6/uL (4.50-5.90); RED CELL DISTRI WIDTH 13.1 % (0-14.5); WHITE BLOOD COUNT 7.1 10*3/uL (4.8-10.8)
[2020-07-12 10:35] LABS: BACTERIA TRACE; BILIRUBIN NEGATIVE; BLOOD NEGATIVE (NEGATIVE); CLARITY CLEAR (CLEAR); COLOR YELLOW (YELLOW); GLUCOSE NEGATIVE; KETONE NEGATIVE; LEUKO ESTERASE 1+ (NEGATIVE); NITRITE NEGATIVE (NEGATIVE); SPECIFIC GRAVITY 1.015 (1.001-1.030); UROBILINOGEN 0.2 E.U./dl (0.0-1.0)
[2020-07-12 10:42] LABS: ALBUMIN 3.2 gm/dl (3.1-4.5); CREATININE 1.6 mg/dL (0.70-1.30); POTASSIUM 4.2 mmol/L (3.5-5.1); URIC ACID 8.5 mg/dL (3.5-7.2)
[2020-07-12 10:44] LABS: TOTAL PROTEIN 7.9 gm/dL (6.4-8.2)
[2020-07-12 12:10] LABS: PTH INTACT 135.4 pg/mL (18.5-88.0); VITAMIN D, 25-HYDROXY 20.5 ng/mL (30-100)
== END | disposition home or self-care (01) ==
LOC: LAB 09:32
PROVIDERS: ATTEND Internal Medicine Nephrology
DX: I12.9 Hypertensive chronic kidney disease with stage 1 through stage 4 chronic kidney disease, or unspecified chronic kidney disease (principal); N18.3 Chronic kidney disease, stage 3 (moderate); E11.22 Type 2 diabetes mellitus with diabetic chronic kidney disease; M10.9 Gout, unspecified

== ENCOUNTER → 2020-11-03 | Outpatient (CLI) | payer BC | END | disposition home or self-care (01) | LOC: COVID19 09:40 | PROVIDERS: ATTEND Family Medicine | DX: Z20.822 Contact with and (suspected) exposure to COVID-19 (principal) ==

== ENCOUNTER → 2020-11-06 | Outpatient (CLI) | payer BC | END | disposition home or self-care (01) | LOC: WOUNDCARE 10:38 | PROVIDERS: ATTEND Nurse Practitioner | DX: E11.621 Type 2 diabetes mellitus with foot ulcer (principal); L97.512 Non-pressure chronic ulcer of other part of right foot with fat layer exposed; E11.622 Type 2 diabetes mellitus with other skin ulcer; L97.212 Non-pressure chronic ulcer of right calf with fat layer exposed; L03.115 Cellulitis of right lower limb; E11.65 Type 2 diabetes mellitus with hyperglycemia; I10 Essential (primary) hypertension ==

== ENCOUNTER → 2020-11-13 | Outpatient (CLI) | payer BC ==
[~2020-11-13] MED LIST changes: +NAPROSYN500 MG PO
== END | disposition home or self-care (01) ==
LOC: WOUNDCARE 01:56
PROVIDERS: ATTEND Nurse Practitioner
DX: E11.622 Type 2 diabetes mellitus with other skin ulcer (principal); L97.212 Non-pressure chronic ulcer of right calf with fat layer exposed; L03.115 Cellulitis of right lower limb; L97.812 Non-pressure chronic ulcer of other part of right lower leg with fat layer exposed; E11.621 Type 2 diabetes mellitus with foot ulcer; L97.512 Non-pressure chronic ulcer of other part of right foot with fat layer exposed; E11.65 Type 2 diabetes mellitus with hyperglycemia; I10 Essential (primary) hypertension

== ENCOUNTER → 2020-11-20 | Outpatient (CLI) | payer BC | END | disposition home or self-care (01) | LOC: WOUNDCARE 01:26 | PROVIDERS: ATTEND Nurse Practitioner | DX: E11.622 Type 2 diabetes mellitus with other skin ulcer (principal); L97.212 Non-pressure chronic ulcer of right calf with fat layer exposed; L03.115 Cellulitis of right lower limb; L97.812 Non-pressure chronic ulcer of other part of right lower leg with fat layer exposed; E11.621 Type 2 diabetes mellitus with foot ulcer; L97.512 Non-pressure chronic ulcer of other part of right foot with fat layer exposed; E11.65 Type 2 diabetes mellitus with hyperglycemia; I10 Essential (primary) hypertension ==

== ENCOUNTER → 2020-11-27 | Outpatient (CLI) | payer BC | END | disposition home or self-care (01) | LOC: WOUNDCARE 02:07 | PROVIDERS: ATTEND Nurse Practitioner | DX: E11.622 Type 2 diabetes mellitus with other skin ulcer (principal); L97.212 Non-pressure chronic ulcer of right calf with fat layer exposed; L03.115 Cellulitis of right lower limb; L97.812 Non-pressure chronic ulcer of other part of right lower leg with fat layer exposed; E11.621 Type 2 diabetes mellitus with foot ulcer; L97.512 Non-pressure chronic ulcer of other part of right foot with fat layer exposed; E11.65 Type 2 diabetes mellitus with hyperglycemia; I10 Essential (primary) hypertension ==

== ENCOUNTER → 2020-12-11 | Outpatient (CLI) | payer BC | LOC: WOUNDCARE 00:56 | PROVIDERS: ATTEND Nurse Practitioner | DX: E11.622 Type 2 diabetes mellitus with other skin ulcer (principal); L97.212 Non-pressure chronic ulcer of right calf with fat layer exposed; L03.115 Cellulitis of right lower limb; L97.812 Non-pressure chronic ulcer of other part of right lower leg with fat layer exposed; E11.621 Type 2 diabetes mellitus with foot ulcer; L97.512 Non-pressure chronic ulcer of other part of right foot with fat layer exposed; E11.65 Type 2 diabetes mellitus with hyperglycemia; I10 Essential (primary) hypertension ==

== ENCOUNTER → 2020-12-25 | Outpatient (CLI) | payer BC | LOC: WOUNDCARE 00:41 | PROVIDERS: ATTEND Nurse Practitioner | DX: E11.622 Type 2 diabetes mellitus with other skin ulcer (principal); L97.812 Non-pressure chronic ulcer of other part of right lower leg with fat layer exposed; L97.212 Non-pressure chronic ulcer of right calf with fat layer exposed; L97.811 Non-pressure chronic ulcer of other part of right lower leg limited to breakdown of skin; E11.621 Type 2 diabetes mellitus with foot ulcer; L97.511 Non-pressure chronic ulcer of other part of right foot limited to breakdown of skin; L03.115 Cellulitis of right lower limb; E11.65 Type 2 diabetes mellitus with hyperglycemia; I10 Essential (primary) hypertension ==

== ENCOUNTER → 2021-01-08 | Outpatient (CLI) | payer BC | LOC: WOUNDCARE 02:17 | PROVIDERS: ATTEND Nurse Practitioner | DX: E11.622 Type 2 diabetes mellitus with other skin ulcer (principal); L97.812 Non-pressure chronic ulcer of other part of right lower leg with fat layer exposed; L97.212 Non-pressure chronic ulcer of right calf with fat layer exposed; L97.811 Non-pressure chronic ulcer of other part of right lower leg limited to breakdown of skin; E11.621 Type 2 diabetes mellitus with foot ulcer; L97.511 Non-pressure chronic ulcer of other part of right foot limited to breakdown of skin; L97.522 Non-pressure chronic ulcer of other part of left foot with fat layer exposed; L03.115 Cellulitis of right lower limb; E11.65 Type 2 diabetes mellitus with hyperglycemia; I10 Essential (primary) hypertension ==

== ENCOUNTER → 2021-01-22 | Outpatient (CLI) | payer BC | LOC: WOUNDCARE 04:05 | PROVIDERS: ATTEND Nurse Practitioner | DX: E11.622 Type 2 diabetes mellitus with other skin ulcer (principal); L97.812 Non-pressure chronic ulcer of other part of right lower leg with fat layer exposed; L03.115 Cellulitis of right lower limb; L97.212 Non-pressure chronic ulcer of right calf with fat layer exposed; E11.621 Type 2 diabetes mellitus with foot ulcer; L97.511 Non-pressure chronic ulcer of other part of right foot limited to breakdown of skin; L97.522 Non-pressure chronic ulcer of other part of left foot with fat layer exposed; E11.65 Type 2 diabetes mellitus with hyperglycemia; I10 Essential (primary) hypertension ==

== ENCOUNTER → 2021-02-05 | Outpatient (CLI) | payer BC | LOC: WOUNDCARE 00:30 | PROVIDERS: ATTEND Nurse Practitioner | DX: E11.622 Type 2 diabetes mellitus with other skin ulcer (principal); L97.812 Non-pressure chronic ulcer of other part of right lower leg with fat layer exposed; L03.115 Cellulitis of right lower limb; L97.212 Non-pressure chronic ulcer of right calf with fat layer exposed; E11.621 Type 2 diabetes mellitus with foot ulcer; L97.511 Non-pressure chronic ulcer of other part of right foot limited to breakdown of skin; L97.522 Non-pressure chronic ulcer of other part of left foot with fat layer exposed; E11.65 Type 2 diabetes mellitus with hyperglycemia; I10 Essential (primary) hypertension ==

== ENCOUNTER 2021-02-08 13:16 | Emergency (ER) | payer BC ==
[~2021-02-08] VITALS: Wt 159.7 kg
[~2021-02-08 13:16] MED LIST changes: -NAPROSYN500 MG PO
[2021-02-08] MEDS ORDERED: NAPROSYN500 MG PO (15:50)
== END 2021-02-08 16:49 | disposition home or self-care (01) ==
LOC: ED 13:16
DX: M25.462 Effusion, left knee (principal); Z88.5 Allergy status to narcotic agent; Z79.899 Other long term (current) drug therapy; Z90.49 Acquired absence of other specified parts of digestive tract; Z90.89 Acquired absence of other organs; Z98.890 Other specified postprocedural states; X50.1XXA Overexertion from prolonged static or awkward postures, initial encounter; Y93.89 Activity, other specified; Y92.89 Other specified places as the place of occurrence of the external cause; Y99.8 Other external cause status

== ENCOUNTER → 2021-02-09 | Outpatient (CLI) | payer BC ==
[~2021-02-09] MED LIST changes: +NAPROSYN500 MG PO
[2021-02-09 14:19] LABS: BASO % 0.2 % (0.0-1.0); EOS # 0.2 10*3/uL (0.0-0.4); EOS % 2.4 % (1.0-4.0); HEMATOCRIT 41.2 % (42.0-52.0); LYMPH # 1.5 10*3/uL (1.3-4.4); LYMPH % 16.9 % (27.0-41.0); MEAN CELL VOLUME 88.2 fl (80.0-94.0); MEAN CORPUSCULAR HGB 28.9 pg (27.0-31.0); MEAN CORPUSCULAR HGB CONC 32.8 g/dl (33.0-37.0); MEAN PLATELET VOLUME 10.5 fl (9.6-12.3); MONO # 0.7 10*3/uL (0.1-1.0); MONO % 7.3 % (3.0-9.0); NEUT # 6.5 10*3/uL (2.3-7.9); NEUT % 72.8 % (47.0-73.0); PLATELET COUNT AUTOMATED 179 10*3/uL (130-400); RED BLOOD COUNT 4.67 10*6/uL (4.50-5.90); RED CELL DISTRI WIDTH 13.1 % (0-14.5); RETICULOCYTE % 1.77 % (0.50-2.50); WHITE BLOOD COUNT 8.9 10*3/uL (4.8-10.8)
[2021-02-09 14:47] LABS: FERRITIN 304.6 ng/mL (22.0-322.0)
[2021-02-09 14:49] LABS: ALBUMIN 3.4 gm/dl (3.1-4.5); ALKALINE PHOSPHATASE 103 U/L (45-117); BUN 20 mg/dl (7-24); CHLORIDE 103 mmol/L (98-107); CHOLESTEROL 161 mg/dL (<200); CREATININE 1.38 mg/dL (0.70-1.30); GAMMA GLUTAMYL TRANSPEPTIDASE 19 U/L (15-85); HDL CHOLESTEROL 47 mg/dl (40-60); IRON 35 ug/dL (65-175); LDL CHOLESTEROL 74 mg/dL (9-159); POTASSIUM 3.7 mmol/L (3.5-5.1); SGOT/AST 16 IU/L (3-35); SGPT/ALT 32 U/L (12-78); SODIUM 139 mmol/L (136-145); TOTAL IRON BINDING CAPACITY 276 ug/dl (250-450); TOTAL PROTEIN 7.4 gm/dL (6.4-8.2); TRIGLYCERIDES 199 mg/dl (<150); URIC ACID 6.8 mg/dL (3.5-7.2); VLDL CHOLESTEROL 40 mg/dL (6-40)
== END | disposition home or self-care (01) ==
LOC: LAB 13:19
PROVIDERS: ATTEND Family Medicine
DX: E11.22 Type 2 diabetes mellitus with diabetic chronic kidney disease (principal); N18.32 Chronic kidney disease, stage 3b; E78.5 Hyperlipidemia, unspecified; R79.89 Other specified abnormal findings of blood chemistry; R53.83 Other fatigue; E55.9 Vitamin D deficiency, unspecified; M10.9 Gout, unspecified; N25.81 Secondary hyperparathyroidism of renal origin; D63.1 Anemia in chronic kidney disease

== ENCOUNTER → 2021-02-10 | Outpatient (CLI) | payer BC ==
[2021-02-10 10:05] LABS: BILIRUBIN Negative (Negative); BLOOD Negative (Negative); CLARITY Clear (Clear); COLOR Yellow (Yellow); GLUCOSE Trace (Negative); KETONE Trace (Negative); LEUKO ESTERASE Negative (Negative); NITRITE Positive (Negative); SPECIFIC GRAVITY 1.025 (1.001-1.030); UROBILINOGEN 0.2 E.U./dl (0.0-1.0)
[2021-02-10 10:34] LABS: MUCOUS TRACE
== END ==
LOC: LAB 09:33
PROVIDERS: Internal Medicine Nephrology; ATTEND Family Medicine
DX: N18.32 Chronic kidney disease, stage 3b (principal); E78.5 Hyperlipidemia, unspecified; R79.89 Other specified abnormal findings of blood chemistry; R53.83 Other fatigue; E10.9 Type 1 diabetes mellitus without complications; E55.9 Vitamin D deficiency, unspecified

== ENCOUNTER → 2021-02-18 | Outpatient (CLI) | payer BC | LOC: WOUNDCARE 00:58 | PROVIDERS: ATTEND Nurse Practitioner | DX: E11.621 Type 2 diabetes mellitus with foot ulcer (principal); L97.518 Non-pressure chronic ulcer of other part of right foot with other specified severity; E11.622 Type 2 diabetes mellitus with other skin ulcer; L97.818 Non-pressure chronic ulcer of other part of right lower leg with other specified severity; L03.115 Cellulitis of right lower limb; L97.212 Non-pressure chronic ulcer of right calf with fat layer exposed; E11.65 Type 2 diabetes mellitus with hyperglycemia; I10 Essential (primary) hypertension ==

== ENCOUNTER → 2021-03-13 | Outpatient (CLI) | payer BC | LOC: WOUNDCARE 00:28 | PROVIDERS: ATTEND Nurse Practitioner | DX: S80.811A Abrasion, right lower leg, initial encounter (principal); E11.622 Type 2 diabetes mellitus with other skin ulcer; L97.212 Non-pressure chronic ulcer of right calf with fat layer exposed; E11.65 Type 2 diabetes mellitus with hyperglycemia; I10 Essential (primary) hypertension; X58.XXXA Exposure to other specified factors, initial encounter; Y93.89 Activity, other specified; Y92.89 Other specified places as the place of occurrence of the external cause; Y99.8 Other external cause status ==

== ENCOUNTER → 2021-03-26 | Outpatient (CLI) | payer BC | LOC: WOUNDCARE 01:43 | PROVIDERS: ATTEND Nurse Practitioner | DX: S80.811D Abrasion, right lower leg, subsequent encounter (principal); S80.812A Abrasion, left lower leg, initial encounter; E11.622 Type 2 diabetes mellitus with other skin ulcer; L97.212 Non-pressure chronic ulcer of right calf with fat layer exposed; L97.222 Non-pressure chronic ulcer of left calf with fat layer exposed; E11.65 Type 2 diabetes mellitus with hyperglycemia; I10 Essential (primary) hypertension; X58.XXXD Exposure to other specified factors, subsequent encounter; X58.XXXA Exposure to other specified factors, initial encounter; Y93.89 Activity, other specified; Y92.89 Other specified places as the place of occurrence of the external cause; Y99.8 Other external cause status ==

== ENCOUNTER → 2021-04-08 | Outpatient (CLI) | payer BC | LOC: WOUNDCARE 01:18 | PROVIDERS: ATTEND Nurse Practitioner | DX: E11.621 Type 2 diabetes mellitus with foot ulcer (principal); L97.522 Non-pressure chronic ulcer of other part of left foot with fat layer exposed; E11.622 Type 2 diabetes mellitus with other skin ulcer; L97.212 Non-pressure chronic ulcer of right calf with fat layer exposed; L97.222 Non-pressure chronic ulcer of left calf with fat layer exposed; E11.65 Type 2 diabetes mellitus with hyperglycemia; I10 Essential (primary) hypertension ==

== ENCOUNTER → 2021-04-23 | Outpatient (CLI) | payer BC | END | disposition home or self-care (01) | LOC: WOUNDCARE 00:59 | PROVIDERS: ATTEND Nurse Practitioner | DX: E11.621 Type 2 diabetes mellitus with foot ulcer (principal); L97.522 Non-pressure chronic ulcer of other part of left foot with fat layer exposed; E11.622 Type 2 diabetes mellitus with other skin ulcer; L97.212 Non-pressure chronic ulcer of right calf with fat layer exposed; L97.222 Non-pressure chronic ulcer of left calf with fat layer exposed; E11.65 Type 2 diabetes mellitus with hyperglycemia; I10 Essential (primary) hypertension ==

== ENCOUNTER → 2021-05-07 | Outpatient (CLI) | payer BC | LOC: WOUNDCARE 00:39 | PROVIDERS: ATTEND Nurse Practitioner | DX: E11.621 Type 2 diabetes mellitus with foot ulcer (principal); L97.522 Non-pressure chronic ulcer of other part of left foot with fat layer exposed; E11.622 Type 2 diabetes mellitus with other skin ulcer; L97.212 Non-pressure chronic ulcer of right calf with fat layer exposed; L97.222 Non-pressure chronic ulcer of left calf with fat layer exposed; E11.65 Type 2 diabetes mellitus with hyperglycemia; I10 Essential (primary) hypertension ==

== ENCOUNTER → 2021-05-14 | Outpatient (CLI) | payer BC ==
[~2021-05-14] MED LIST changes: +ADULT LOW DOSE81 MG PO; +ATORVASTATIN CA80 M1 PO; +BREO ELLIPTA 11 EACH INH; +K-TAB10 MEQ PO; +LOSARTAN POTASS25 M1 PO; +METOPROLOL SUC100 M1 PO; +NAFCILLIN2 GM IJ; +NOVOLIN 70100 UNIT/1 SQ; +PLAVIX75 M1 PO
== END ==
LOC: WOUNDCARE 05:32
PROVIDERS: ATTEND Nurse Practitioner
DX: E11.621 Type 2 diabetes mellitus with foot ulcer (principal); L89.893 Pressure ulcer of other site, stage 3; L98.492 Non-pressure chronic ulcer of skin of other sites with fat layer exposed; L97.522 Non-pressure chronic ulcer of other part of left foot with fat layer exposed; L84 Corns and callosities; E11.622 Type 2 diabetes mellitus with other skin ulcer; L97.212 Non-pressure chronic ulcer of right calf with fat layer exposed; L97.222 Non-pressure chronic ulcer of left calf with fat layer exposed; E11.65 Type 2 diabetes mellitus with hyperglycemia; I10 Essential (primary) hypertension

== ENCOUNTER 2021-05-15 01:29 | Emergency (ER) | payer BC ==
[~2021-05-15] VITALS: Ht 172.7 cm; Wt 165.1 kg
[~2021-05-15 01:29] MED LIST changes: -ADULT LOW DOSE81 MG PO; -ATORVASTATIN CA80 M1 PO; -BREO ELLIPTA 11 EACH INH; -K-TAB10 MEQ PO; -LOSARTAN POTASS25 M1 PO; -METOPROLOL SUC100 M1 PO; -NAFCILLIN2 GM IJ; -NOVOLIN 70100 UNIT/1 SQ; -PLAVIX75 M1 PO
[2021-05-15 01:59] LABS: BASO % 0.5 % (0.0-1.0); EOS # 0.3 10*3/uL (0.0-0.4); EOS % 3.1 % (1.0-4.0); HEMATOCRIT 44.4 % (42.0-52.0); LYMPH # 2.2 10*3/uL (1.3-4.4); LYMPH % 26.9 % (27.0-41.0); MEAN CELL VOLUME 88.1 fl (80.0-94.0); MEAN CORPUSCULAR HGB 29.2 pg (27.0-31.0); MEAN CORPUSCULAR HGB CONC 33.1 g/dl (33.0-37.0); MEAN PLATELET VOLUME 10.1 fl (9.6-12.3); MONO # 0.9 10*3/uL (0.1-1.0); MONO % 10.8 % (3.0-9.0); NEUT # 4.7 10*3/uL (2.3-7.9); NEUT % 58.3 % (47.0-73.0); PLATELET COUNT AUTOMATED 236 10*3/uL (130-400); RED BLOOD COUNT 5.04 10*6/uL (4.50-5.90); RED CELL DISTRI WIDTH 13.3 % (0-14.5)
[2021-05-15 02:15] LABS: ALBUMIN 3.4 gm/dl (3.1-4.5); CREATININE 1.46 mg/dL (0.70-1.30); POTASSIUM 4.2 mmol/L (3.5-5.1); TOTAL PROTEIN 7.7 gm/dL (6.4-8.2)
[2021-05-15 02:17] LABS: TROPONIN I 0.028 ng/ml (<0.045)
== END 2021-05-15 04:45 | disposition short-term general hospital (02) ==
LOC: ED 01:29
PROVIDERS: Internal Medicine
DX: I21.9 Acute myocardial infarction, unspecified (principal); N17.9 Acute kidney failure, unspecified; N18.9 Chronic kidney disease, unspecified; Z88.5 Allergy status to narcotic agent; Z79.899 Other long term (current) drug therapy; Z90.89 Acquired absence of other organs; Z90.49 Acquired absence of other specified parts of digestive tract

== ENCOUNTER → 2021-05-21 | Outpatient (CLI) | payer BC ==
[~2021-05-21] MED LIST changes: +ADULT LOW DOSE81 MG PO; +ATORVASTATIN CA80 M1 PO; +BREO ELLIPTA 11 EACH INH; +K-TAB10 MEQ PO; +LOSARTAN POTASS25 M1 PO; +METOPROLOL SUC100 M1 PO; +NAFCILLIN2 GM IJ; +NOVOLIN 70100 UNIT/1 SQ; +PLAVIX75 M1 PO
== END ==
LOC: WOUNDCARE 02:02
PROVIDERS: ATTEND Nurse Practitioner
DX: E11.621 Type 2 diabetes mellitus with foot ulcer (principal); L89.893 Pressure ulcer of other site, stage 3; L98.492 Non-pressure chronic ulcer of skin of other sites with fat layer exposed; L97.522 Non-pressure chronic ulcer of other part of left foot with fat layer exposed; L84 Corns and callosities; E11.622 Type 2 diabetes mellitus with other skin ulcer; L97.212 Non-pressure chronic ulcer of right calf with fat layer exposed; L97.222 Non-pressure chronic ulcer of left calf with fat layer exposed; E11.65 Type 2 diabetes mellitus with hyperglycemia; I10 Essential (primary) hypertension

== ENCOUNTER → 2021-05-27 | Outpatient (CLI) | payer BC | LOC: WOUNDCARE 05-25 01:19 | PROVIDERS: ATTEND Nurse Practitioner Primary Care | DX: E11.621 Type 2 diabetes mellitus with foot ulcer (principal); L89.899 Pressure ulcer of other site, unspecified stage; L97.522 Non-pressure chronic ulcer of other part of left foot with fat layer exposed; L84 Corns and callosities; E11.622 Type 2 diabetes mellitus with other skin ulcer; L97.212 Non-pressure chronic ulcer of right calf with fat layer exposed; L97.222 Non-pressure chronic ulcer of left calf with fat layer exposed; E11.65 Type 2 diabetes mellitus with hyperglycemia; I10 Essential (primary) hypertension ==

== ENCOUNTER 2021-05-30 19:36 | Inpatient (IN) | payer BC ==
[~2021-05-30] VITALS: Ht 180.3 cm; Wt 160.3 kg
[~2021-05-30 19:36] MED LIST changes: -ADULT LOW DOSE81 MG PO; -ATORVASTATIN CA80 M1 PO; -BREO ELLIPTA 11 EACH INH; -K-TAB10 MEQ PO; -LOSARTAN POTASS25 M1 PO; -METOPROLOL SUC100 M1 PO; -NAFCILLIN2 GM IJ; -NOVOLIN 70100 UNIT/1 SQ; -PLAVIX75 M1 PO
[2021-05-30 19:45] VITALS: BP 132/70
[2021-05-30 20:25] LABS: BASO % 0.3 % (0.0-1.0); EOS # 0.1 10*3/uL (0.0-0.4); EOS % 1.2 % (1.0-4.0); HEMATOCRIT 40.8 % (42.0-52.0); LYMPH # 1.3 10*3/uL (1.3-4.4); LYMPH % 11.1 % (27.0-41.0); MEAN CELL VOLUME 89.5 fl (80.0-94.0); MEAN CORPUSCULAR HGB 28.9 pg (27.0-31.0); MEAN CORPUSCULAR HGB CONC 32.4 g/dl (33.0-37.0); MEAN PLATELET VOLUME 9.3 fl (9.6-12.3); MONO # 0.9 10*3/uL (0.1-1.0); MONO % 8.3 % (3.0-9.0); NEUT # 8.9 10*3/uL (2.3-7.9); NEUT % 78.8 % (47.0-73.0); PLATELET COUNT AUTOMATED 287 10*3/uL (130-400); RED BLOOD COUNT 4.56 10*6/uL (4.50-5.90); RED CELL DISTRI WIDTH 13.6 % (0-14.5); WHITE BLOOD COUNT 11.3 10*3/uL (4.8-10.8)
[2021-05-30 20:40] LABS: ALBUMIN 3.4 gm/dl (3.1-4.5); ALKALINE PHOSPHATASE 122 U/L (45-117); BUN 18 mg/dl (7-24); CHLORIDE 99 mmol/L (98-107); CREATININE 1.28 mg/dL (0.70-1.30); POTASSIUM 4.1 mmol/L (3.5-5.1); SGOT/AST 14 IU/L (3-35); SGPT/ALT 32 U/L (12-78); SODIUM 135 mmol/L (136-145); TOTAL PROTEIN 7.8 gm/dL (6.4-8.2)
[2021-05-31 00:15] VITALS: BP 128/71
[2021-05-31 01:00] VITALS: BP 111/43
[2021-05-31] MEDS ORDERED: PLAVIX75 M1 PO (01:17)
[2021-05-31] MEDS ORDERED: BUMETANIDE2 MG PO (01:18)
[2021-05-31] MEDS ORDERED: GLYBURIDE5 MG PO ×2 (01:20)
[2021-05-31] MEDS ORDERED: K-TAB10 MEQ PO (01:21)
[2021-05-31] MEDS ORDERED: ALLOPURINOL100 MG PO (01:22)
[2021-05-31] MEDS ORDERED: NOVOLIN 70100 UNIT/1 SQ ×2 (01:25→01:26)
[2021-05-31 06:04] LABS: BASO % 0.2 % (0.0-1.0); EOS # 0.2 10*3/uL (0.0-0.4); EOS % 1.2 % (1.0-4.0); HEMATOCRIT 40.6 % (42.0-52.0); LYMPH # 1.6 10*3/uL (1.3-4.4); LYMPH % 12.4 % (27.0-41.0); MEAN CELL VOLUME 90.2 fl (80.0-94.0); MEAN CORPUSCULAR HGB 28.7 pg (27.0-31.0); MEAN CORPUSCULAR HGB CONC 31.8 g/dl (33.0-37.0); MEAN PLATELET VOLUME 9.6 fl (9.6-12.3); MONO # 1.3 10*3/uL (0.1-1.0); MONO % 9.5 % (3.0-9.0); NEUT % 76.2 % (47.0-73.0); PLATELET COUNT AUTOMATED 242 10*3/uL (130-400); RED CELL DISTRI WIDTH 13.6 % (0-14.5); WHITE BLOOD COUNT 13.1 10*3/uL (4.8-10.8)
[2021-05-31 06:28] LABS: ACT PARTIAL THROMBO TIME 36.6 SECONDS (20.0-32.1); ALBUMIN 3.1 gm/dl (3.1-4.5); ALKALINE PHOSPHATASE 103 U/L (45-117); BUN 18 mg/dl (7-24); CHLORIDE 101 mmol/L (98-107); CHOLESTEROL 127 mg/dL (<200); INTERNATIONAL NORM RATIO 1.3 (2.0-3.5); LDL CHOLESTEROL 63 mg/dL (9-159); POTASSIUM 4.2 mmol/L (3.5-5.1); SGOT/AST 15 IU/L (3-35); SGPT/ALT 28 U/L (12-78); SODIUM 134 mmol/L (136-145); TOTAL PROTEIN 7.7 gm/dL (6.4-8.2); TRIGLYCERIDES 59 mg/dl (<150)
[2021-05-31 06:32] LABS: THYROID STIM HORMONE (HS) 0.784 uIU/ml (0.358-4.75)
[2021-05-31 08:00] VITALS: BP 116/55
[2021-05-31 08:06] LABS: VITAMIN D, 25-HYDROXY 42.5 ng/mL (30-100)
[2021-05-31 16:00] VITALS: BP 118/50
[2021-05-31 20:00] VITALS: BP 136/68
[2021-06-01] VITALS: BP 119/38
[2021-06-01 06:38] LABS: BUN 18 mg/dl (7-24); CHLORIDE 101 mmol/L (98-107); CREATININE 1.22 mg/dL (0.70-1.30); POTASSIUM 3.8 mmol/L (3.5-5.1); SODIUM 135 mmol/L (136-145)
[2021-06-01 06:40] LABS: BASO % 0.2 % (0.0-1.0); EOS # 0.2 10*3/uL (0.0-0.4); EOS % 1.3 % (1.0-4.0); LYMPH # 1.6 10*3/uL (1.3-4.4); LYMPH % 13.5 % (27.0-41.0); MEAN CELL VOLUME 90.1 fl (80.0-94.0); MEAN CORPUSCULAR HGB 28.4 pg (27.0-31.0); MEAN CORPUSCULAR HGB CONC 31.5 g/dl (33.0-37.0); MEAN PLATELET VOLUME 9.7 fl (9.6-12.3); MONO % 8.4 % (3.0-9.0); NEUT # 9.1 10*3/uL (2.3-7.9); NEUT % 76.2 % (47.0-73.0); PLATELET COUNT AUTOMATED 245 10*3/uL (130-400); RED BLOOD COUNT 4.33 10*6/uL (4.50-5.90); RED CELL DISTRI WIDTH 13.5 % (0-14.5); WHITE BLOOD COUNT 11.9 10*3/uL (4.8-10.8)
[2021-06-01 08:00] VITALS: BP 132/64
[2021-06-01 12:00] VITALS: BP 143/59
[2021-06-01 16:00] VITALS: BP 136/69
[2021-06-01 20:00] VITALS: BP 128/58
[2021-06-02] VITALS: BP 126/57
[2021-06-02 08:00] VITALS: BP 134/64
[2021-06-02 12:00] VITALS: BP 128/67
[2021-06-02] MEDS ORDERED: LOSARTAN POTASS25 M1 PO (14:09)
[2021-06-02] MEDS ORDERED: ADULT LOW DOSE81 MG PO (14:11)
[2021-06-02] MEDS ORDERED: ATORVASTATIN CA80 M1 PO (14:11)
[2021-06-02] MEDS ORDERED: METOPROLOL SUC100 M1 PO (14:12)
[2021-06-02] MEDS ORDERED: BREO ELLIPTA 11 EACH INH (14:14)
[2021-06-02 16:00] VITALS: BP 116/58
[2021-06-02 20:00] VITALS: BP 138/72
[2021-06-03] VITALS (9 sets, daily range): BP systolic 94–143; BP diastolic 44–77
[2021-06-04] VITALS: BP 138/63
[2021-06-04 06:30] LABS: ALBUMIN 2.6 gm/dl (3.1-4.5); ALKALINE PHOSPHATASE 93 U/L (45-117); BUN 18 mg/dl (7-24); CHLORIDE 99 mmol/L (98-107); CREATININE 1.25 mg/dL (0.70-1.30); POTASSIUM 3.7 mmol/L (3.5-5.1); SGOT/AST 24 IU/L (3-35); SGPT/ALT 32 U/L (12-78); SODIUM 135 mmol/L (136-145); TOTAL PROTEIN 7.2 gm/dL (6.4-8.2)
[2021-06-04 06:33] LABS: BASO % 0.2 % (0.0-1.0); EOS # 0.2 10*3/uL (0.0-0.4); EOS % 2.2 % (1.0-4.0); HEMATOCRIT 37.8 % (42.0-52.0); LYMPH # 1.6 10*3/uL (1.3-4.4); MEAN CELL VOLUME 90.6 fl (80.0-94.0); MEAN CORPUSCULAR HGB 28.5 pg (27.0-31.0); MEAN CORPUSCULAR HGB CONC 31.5 g/dl (33.0-37.0); MEAN PLATELET VOLUME 9.7 fl (9.6-12.3); MONO # 0.7 10*3/uL (0.1-1.0); MONO % 7.9 % (3.0-9.0); NEUT % 70.2 % (47.0-73.0); PLATELET COUNT AUTOMATED 263 10*3/uL (130-400); RED BLOOD COUNT 4.17 10*6/uL (4.50-5.90); RED CELL DISTRI WIDTH 13.5 % (0-14.5); WHITE BLOOD COUNT 8.6 10*3/uL (4.8-10.8)
[2021-06-04 08:02] VITALS: BP 113/58
[2021-06-04 12:22] VITALS: BP 118/62
[2021-06-04] MEDS ORDERED: NAFCILLIN2 GM IJ (12:34)
[2021-06-04 16:00] VITALS: BP 104/56
[2021-06-04 20:00] VITALS: BP 97/48
[2021-06-05] VITALS: BP 94/42
[2021-06-05 05:51] LABS: BUN 18 mg/dl (7-24); CHLORIDE 102 mmol/L (98-107); CREATININE 0.99 mg/dL (0.70-1.30); POTASSIUM 3.8 mmol/L (3.5-5.1); SODIUM 137 mmol/L (136-145)
[2021-06-05 05:55] LABS: BASO % 0.5 % (0.0-1.0); EOS # 0.2 10*3/uL (0.0-0.4); EOS % 2.7 % (1.0-4.0); LYMPH # 1.3 10*3/uL (1.3-4.4); LYMPH % 15.5 % (27.0-41.0); MEAN CELL VOLUME 90.9 fl (80.0-94.0); MEAN CORPUSCULAR HGB 28.7 pg (27.0-31.0); MEAN CORPUSCULAR HGB CONC 31.6 g/dl (33.0-37.0); MEAN PLATELET VOLUME 9.7 fl (9.6-12.3); MONO # 0.7 10*3/uL (0.1-1.0); MONO % 8.6 % (3.0-9.0); NEUT # 6.1 10*3/uL (2.3-7.9); NEUT % 72.3 % (47.0-73.0); PLATELET COUNT AUTOMATED 254 10*3/uL (130-400); RED BLOOD COUNT 4.18 10*6/uL (4.50-5.90); RED CELL DISTRI WIDTH 13.4 % (0-14.5); WHITE BLOOD COUNT 8.4 10*3/uL (4.8-10.8)
[2021-06-05 07:46] VITALS: BP 127/57
[2021-06-05 10:07] LABS: ACID FAST SPEC PROCESSING Tissue Grinding (.)
[2021-06-05 12:12] VITALS: BP 138/68
== END 2021-06-05 14:02 | disposition home health service (06) | DRG 854 ==
LOC: ED 19:36 → 5E 22:30 → EDHOLD 22:30 → 5E 05-31 00:12
PROVIDERS: Emergency Medicine; Hospitalist; Internal Medicine; Podiatrist; Registered Nurse; Social Worker Clinical; ADMIT Student in an Organized Health Care Education/Training Program; ATTEND Student in an Organized Health Care Education/Training Program
PROC: 0QBR0ZZ Excision of Left Toe Phalanx, Open Approach (ICD-10-PCS; 2021-06-02)
PROC: 0QBR0ZZ Excision of Left Toe Phalanx, Open Approach (ICD-10-PCS; principal; 2021-06-03)
PROC: 0HDRXZZ Extraction of Toe Nail, External Approach (ICD-10-PCS; 2021-06-03)
PROC: 0QBR0ZX Excision of Left Toe Phalanx, Open Approach, Diagnostic (ICD-10-PCS; 2021-06-03)
PROC: 0QBR0ZX Excision of Left Toe Phalanx, Open Approach, Diagnostic (ICD-10-PCS; 2021-06-03)
PROC: 0QBR0ZZ Excision of Left Toe Phalanx, Open Approach (ICD-10-PCS; 2021-06-03)
PROC: 02HV33Z Insertion of Infusion Device into Superior Vena Cava, Percutaneous Approach (ICD-10-PCS; 2021-06-04)
DX: A41.9 Sepsis, unspecified organism (principal); E87.1 Hypo-osmolality and hyponatremia; I50.32 Chronic diastolic (congestive) heart failure; D68.69 Other thrombophilia; I48.19 Other persistent atrial fibrillation; M86.8X7 Other osteomyelitis, ankle and foot; Z68.42 Body mass index [BMI] 45.0-49.9, adult; D64.9 Anemia, unspecified; E78.2 Mixed hyperlipidemia; E11.69 Type 2 diabetes mellitus with other specified complication; L03.032 Cellulitis of left toe; M10.9 Gout, unspecified; L60.0 Ingrowing nail; L97.529 Non-pressure chronic ulcer of other part of left foot with unspecified severity; E11.42 Type 2 diabetes mellitus with diabetic polyneuropathy; E66.01 Morbid (severe) obesity due to excess calories; M20.5X2 Other deformities of toe(s) (acquired), left foot; E11.621 Type 2 diabetes mellitus with foot ulcer; M20.5X1 Other deformities of toe(s) (acquired), right foot; I48.0 Paroxysmal atrial fibrillation; E11.65 Type 2 diabetes mellitus with hyperglycemia; I11.0 Hypertensive heart disease with heart failure; J45.40 Moderate persistent asthma, uncomplicated; I25.10 Atherosclerotic heart disease of native coronary artery without angina pectoris; Z79.1 Long term (current) use of non-steroidal anti-inflammatories (NSAID); Z88.5 Allergy status to narcotic agent; Z82.3 Family history of stroke; Z82.49 Family history of ischemic heart disease and other diseases of the circulatory system; Z79.899 Other long term (current) drug therapy; Z79.4 Long term (current) use of insulin; Z95.5 Presence of coronary angioplasty implant and graft; Z22.321 Carrier or suspected carrier of Methicillin susceptible Staphylococcus aureus; Z90.49 Acquired absence of other specified parts of digestive tract; I25.2 Old myocardial infarction

== ENCOUNTER → 2021-11-29 | Outpatient (CLI) | payer BC ==
[~2021-11-29] MED LIST changes: +ADULT LOW DOSE81 MG PO; +ATORVASTATIN CA80 M1 PO; +BREO ELLIPTA 11 EACH INH; +K-TAB10 MEQ PO; +LOSARTAN POTASS25 M1 PO; +METOPROLOL SUC100 M1 PO; +NAFCILLIN2 GM IJ; +NOVOLIN 70100 UNIT/1 SQ; +PLAVIX75 M1 PO
[2021-11-29 11:56] LABS: BASO % 0.3 % (0.0-1.0); EOS # 0.1 10*3/uL (0.0-0.4); EOS % 2.2 % (1.0-4.0); HEMATOCRIT 42.9 % (42.0-52.0); LYMPH # 1.4 10*3/uL (1.3-4.4); MEAN CELL VOLUME 89.7 fl (80.0-94.0); MEAN CORPUSCULAR HGB 28.9 pg (27.0-31.0); MEAN CORPUSCULAR HGB CONC 32.2 g/dl (33.0-37.0); MEAN PLATELET VOLUME 9.7 fl (9.6-12.3); MONO # 0.6 10*3/uL (0.1-1.0); MONO % 8.7 % (3.0-9.0); NEUT # 4.3 10*3/uL (2.3-7.9); NEUT % 66.5 % (47.0-73.0); PLATELET COUNT AUTOMATED 205 10*3/uL (130-400); RED BLOOD COUNT 4.78 10*6/uL (4.50-5.90); RED CELL DISTRI WIDTH 13.5 % (0-14.5); WHITE BLOOD COUNT 6.5 10*3/uL (4.8-10.8)
[2021-11-29 12:11] LABS: ALBUMIN 3.2 gm/dl (3.1-4.5); ALKALINE PHOSPHATASE 132 U/L (45-117); BUN 27 mg/dl (7-24); CHLORIDE 104 mmol/L (98-107); IRON 69 ug/dL (65-175); POTASSIUM 4.3 mmol/L (3.5-5.1); SGOT/AST 25 IU/L (3-35); SGPT/ALT 39 U/L (12-78); SODIUM 138 mmol/L (136-145); TOTAL IRON BINDING CAPACITY 359 ug/dl (250-450); TOTAL PROTEIN 7.2 gm/dL (6.4-8.2)
[2021-11-29 13:34] LABS: FERRITIN 125.7 ng/mL (22.0-322.0); VITAMIN D, 25-HYDROXY 39.9 ng/mL (30-100)
[2021-11-29 19:17] LABS: BILIRUBIN Negative (Negative); BLOOD Negative (Negative); CLARITY Clear (Clear); COLOR Yellow (Yellow); GLUCOSE Negative (Negative); KETONE Negative (Negative); LEUKO ESTERASE Negative (Negative); NITRITE Negative (Negative); PH 5.5 (4.5-8.0); SPECIFIC GRAVITY 1.015 (1.001-1.030); UROBILINOGEN 0.2 E.U./dl (0.0-1.0)
[2021-11-29 19:25] LABS: URINE CREATININE RANDOM 96.4 mg/dL
[2021-11-29 19:53] LABS: BACTERIA TRACE; EPITHELIAL CELLS 0-2; WBC 0-2 wbc/hpf (0-5)
== END | disposition home or self-care (01) ==
LOC: LAB 11:27
PROVIDERS: ATTEND Internal Medicine Nephrology
DX: E11.22 Type 2 diabetes mellitus with diabetic chronic kidney disease (principal); N18.32 Chronic kidney disease, stage 3b; D63.1 Anemia in chronic kidney disease; N25.81 Secondary hyperparathyroidism of renal origin; M10.9 Gout, unspecified

== ENCOUNTER → 2022-03-10 | Outpatient (CLI) | payer BC ==
[~2022-03-10] MED LIST changes: +CEPHALEXIN500 M1 PO; +CLINDAMYCIN HC300 MG PO; +ERYTHROMYCIN OPH1 GM OPH; +PREDNISONE20 M1 PO
[2022-03-10 15:45] LABS: BASO % 0.2 % (0.0-1.0); EOS # 0.2 10*3/uL (0.0-0.4); EOS % 1.9 % (1.0-4.0); HEMATOCRIT 42.3 % (42.0-52.0); LYMPH # 1.5 10*3/uL (1.3-4.4); LYMPH % 17.5 % (27.0-41.0); MEAN CELL VOLUME 86.7 fl (80.0-94.0); MEAN CORPUSCULAR HGB 28.1 pg (27.0-31.0); MEAN CORPUSCULAR HGB CONC 32.4 g/dl (33.0-37.0); MEAN PLATELET VOLUME 9.6 fl (9.6-12.3); MONO # 0.7 10*3/uL (0.1-1.0); MONO % 8.2 % (3.0-9.0); NEUT # 5.9 10*3/uL (2.3-7.9); NEUT % 71.7 % (47.0-73.0); PLATELET COUNT AUTOMATED 233 10*3/uL (130-400); RED BLOOD COUNT 4.88 10*6/uL (4.50-5.90); RED CELL DISTRI WIDTH 13.7 % (0-14.5); RETICULOCYTE % 1.87 % (0.50-2.50); WHITE BLOOD COUNT 8.3 10*3/uL (4.8-10.8)
[2022-03-10 16:09] LABS: URIC ACID 8.9 mg/dL (3.5-7.2)
[2022-03-10 16:14] LABS: ALKALINE PHOSPHATASE 123 U/L (45-117); BUN 25 mg/dl (7-24); CHLORIDE 106 mmol/L (98-107); CHOLESTEROL 70 mg/dL (<200); CREATININE 1.27 mg/dL (0.70-1.30); GAMMA GLUTAMYL TRANSPEPTIDASE 25 U/L (15-85); IRON 46 ug/dL (65-175); LDL CHOLESTEROL 20 mg/dL (9-159); SGOT/AST 18 IU/L (3-35); SGPT/ALT 35 U/L (12-78); SODIUM 138 mmol/L (136-145); TOTAL IRON BINDING CAPACITY 337 ug/dl (250-450); TOTAL PROTEIN 7.3 gm/dL (6.4-8.2); TRIGLYCERIDES 80 mg/dl (<150)
[2022-03-10 16:40] LABS: VITAMIN D, 25-HYDROXY 37.4 ng/mL (30-100)
== END | disposition home or self-care (01) ==
LOC: WOUNDCARE 01:34 → LAB 01:34 → WOUNDCARE 11:26
PROVIDERS: Family Medicine; Internal Medicine Nephrology; ATTEND Nurse Practitioner Family
DX: S81.802A Unspecified open wound, left lower leg, initial encounter (principal); E11.69 Type 2 diabetes mellitus with other specified complication; M86.8X7 Other osteomyelitis, ankle and foot; E78.5 Hyperlipidemia, unspecified; I25.10 Atherosclerotic heart disease of native coronary artery without angina pectoris; I11.0 Hypertensive heart disease with heart failure; I50.9 Heart failure, unspecified; I48.91 Unspecified atrial fibrillation; J45.909 Unspecified asthma, uncomplicated; E55.9 Vitamin D deficiency, unspecified; M10.9 Gout, unspecified; Z79.4 Long term (current) use of insulin; Z90.49 Acquired absence of other specified parts of digestive tract; Z95.5 Presence of coronary angioplasty implant and graft; X58.XXXA Exposure to other specified factors, initial encounter; Y93.89 Activity, other specified; Y92.89 Other specified places as the place of occurrence of the external cause; Y99.8 Other external cause status

== ENCOUNTER → 2022-03-11 | Outpatient (CLI) | payer BC ==
[~2022-03-11] MED LIST changes: -CEPHALEXIN500 M1 PO; -CLINDAMYCIN HC300 MG PO; -ERYTHROMYCIN OPH1 GM OPH; -PREDNISONE20 M1 PO
[2022-03-11 12:44] LABS: BILIRUBIN Negative (Negative); BLOOD Negative (Negative); CLARITY Clear (Clear); COLOR Yellow (Yellow); GLUCOSE Negative (Negative); KETONE Negative (Negative); LEUKO ESTERASE Negative (Negative); NITRITE Negative (Negative); SPECIFIC GRAVITY 1.015 (1.001-1.030); UROBILINOGEN 0.2 E.U./dl (0.0-1.0)
[2022-03-11 12:55] LABS: BACTERIA 1+; EPITHELIAL CELLS 0-2; HYALINE CAST 0-2
== END | disposition home or self-care (01) ==
LOC: LAB 12:12
PROVIDERS: Internal Medicine Nephrology; ATTEND Family Medicine
DX: E78.5 Hyperlipidemia, unspecified (principal); R79.89 Other specified abnormal findings of blood chemistry; R53.83 Other fatigue; R74.8 Abnormal levels of other serum enzymes; E55.9 Vitamin D deficiency, unspecified

== ENCOUNTER → 2022-03-18 | Outpatient (CLI) | payer BC | LOC: WOUNDCARE 00:27 | PROVIDERS: ATTEND Nurse Practitioner Family | DX: E11.621 Type 2 diabetes mellitus with foot ulcer (principal); L97.521 Non-pressure chronic ulcer of other part of left foot limited to breakdown of skin; S81.802D Unspecified open wound, left lower leg, subsequent encounter; L84 Corns and callosities; E11.69 Type 2 diabetes mellitus with other specified complication; M86.8X7 Other osteomyelitis, ankle and foot; I11.0 Hypertensive heart disease with heart failure; I50.9 Heart failure, unspecified; I25.10 Atherosclerotic heart disease of native coronary artery without angina pectoris; I48.91 Unspecified atrial fibrillation; E78.5 Hyperlipidemia, unspecified; J45.909 Unspecified asthma, uncomplicated; M10.9 Gout, unspecified; Z90.49 Acquired absence of other specified parts of digestive tract; Z95.5 Presence of coronary angioplasty implant and graft; X58.XXXD Exposure to other specified factors, subsequent encounter ==

== ENCOUNTER → 2022-03-24 | Outpatient (CLI) | payer BC | END | disposition home or self-care (01) | LOC: WOUNDCARE 02:07 | PROVIDERS: ATTEND Nurse Practitioner Family | DX: S81.802D Unspecified open wound, left lower leg, subsequent encounter (principal); E11.621 Type 2 diabetes mellitus with foot ulcer; L97.521 Non-pressure chronic ulcer of other part of left foot limited to breakdown of skin; L84 Corns and callosities; E11.69 Type 2 diabetes mellitus with other specified complication; M86.8X7 Other osteomyelitis, ankle and foot; I11.0 Hypertensive heart disease with heart failure; I50.9 Heart failure, unspecified; I25.10 Atherosclerotic heart disease of native coronary artery without angina pectoris; I48.91 Unspecified atrial fibrillation; E78.5 Hyperlipidemia, unspecified; M10.9 Gout, unspecified; J45.909 Unspecified asthma, uncomplicated; Z90.49 Acquired absence of other specified parts of digestive tract; Z95.5 Presence of coronary angioplasty implant and graft; X58.XXXD Exposure to other specified factors, subsequent encounter ==

== ENCOUNTER 2022-04-01 20:21 | Emergency (ER) | payer BC ==
[~2022-04-01] VITALS: Ht 180.3 cm; Wt 166.0 kg
[2022-04-01] MEDS ORDERED: PREDNISONE20 M1 PO (22:43)
[2022-04-01] MEDS ORDERED: ERYTHROMYCIN OPH1 GM OPH (22:43)
[2022-04-01] MEDS ORDERED: CEPHALEXIN500 M1 PO (22:59)
[2022-04-01] MEDS ORDERED: CLINDAMYCIN HC300 MG PO (22:59)
== END 2022-04-01 23:20 | disposition home or self-care (01) ==
LOC: ED 20:21
DX: L03.116 Cellulitis of left lower limb (principal); Z79.899 Other long term (current) drug therapy; Z79.82 Long term (current) use of aspirin

== ENCOUNTER → 2022-04-06 | Outpatient (CLI) | payer BC ==
[~2022-04-06] MED LIST changes: +CEPHALEXIN500 M1 PO; +CLINDAMYCIN HC300 MG PO; +ERYTHROMYCIN OPH1 GM OPH; +PREDNISONE20 M1 PO
== END | disposition home or self-care (01) ==
LOC: WOUNDCARE 03:44
PROVIDERS: ATTEND Nurse Practitioner Family
DX: S81.802D Unspecified open wound, left lower leg, subsequent encounter (principal); E11.69 Type 2 diabetes mellitus with other specified complication; M86.8X7 Other osteomyelitis, ankle and foot; E78.5 Hyperlipidemia, unspecified; I11.0 Hypertensive heart disease with heart failure; I50.9 Heart failure, unspecified; I48.91 Unspecified atrial fibrillation; I25.10 Atherosclerotic heart disease of native coronary artery without angina pectoris; J45.909 Unspecified asthma, uncomplicated; M10.9 Gout, unspecified; Z90.49 Acquired absence of other specified parts of digestive tract; Z95.5 Presence of coronary angioplasty implant and graft; X58.XXXD Exposure to other specified factors, subsequent encounter

== ENCOUNTER → 2022-04-20 | Outpatient (CLI) | payer BC ==
[~2022-04-20] MED LIST changes: +AUGMENTIN 500500 M1 PO
== END ==
LOC: WOUNDCARE 01:45
PROVIDERS: ATTEND Nurse Practitioner Family
DX: L03.116 Cellulitis of left lower limb (principal); S81.802D Unspecified open wound, left lower leg, subsequent encounter; E11.622 Type 2 diabetes mellitus with other skin ulcer; L97.822 Non-pressure chronic ulcer of other part of left lower leg with fat layer exposed; E11.69 Type 2 diabetes mellitus with other specified complication; M86.8X7 Other osteomyelitis, ankle and foot; E78.5 Hyperlipidemia, unspecified; I11.0 Hypertensive heart disease with heart failure; I50.9 Heart failure, unspecified; I48.91 Unspecified atrial fibrillation; I25.10 Atherosclerotic heart disease of native coronary artery without angina pectoris; J45.909 Unspecified asthma, uncomplicated; M10.9 Gout, unspecified; Z90.49 Acquired absence of other specified parts of digestive tract; Z95.5 Presence of coronary angioplasty implant and graft; X58.XXXD Exposure to other specified factors, subsequent encounter

== ENCOUNTER → 2022-04-23 | Outpatient (CLI) | payer BC | END | disposition home or self-care (01) | LOC: WOUNDCARE 00:10 | PROVIDERS: ATTEND Nurse Practitioner Family | DX: L03.116 Cellulitis of left lower limb (principal); E11.622 Type 2 diabetes mellitus with other skin ulcer; L97.822 Non-pressure chronic ulcer of other part of left lower leg with fat layer exposed; S81.802D Unspecified open wound, left lower leg, subsequent encounter; E11.69 Type 2 diabetes mellitus with other specified complication; M86.8X7 Other osteomyelitis, ankle and foot; E78.5 Hyperlipidemia, unspecified; I11.0 Hypertensive heart disease with heart failure; I50.9 Heart failure, unspecified; I48.91 Unspecified atrial fibrillation; I25.10 Atherosclerotic heart disease of native coronary artery without angina pectoris; J45.909 Unspecified asthma, uncomplicated; M10.9 Gout, unspecified; Z90.49 Acquired absence of other specified parts of digestive tract; Z95.5 Presence of coronary angioplasty implant and graft; X58.XXXD Exposure to other specified factors, subsequent encounter ==

== ENCOUNTER → 2022-04-27 | Outpatient (CLI) | payer BC | LOC: WOUNDCARE 03:12 | PROVIDERS: ATTEND Nurse Practitioner Family | DX: S81.802D Unspecified open wound, left lower leg, subsequent encounter (principal); E11.622 Type 2 diabetes mellitus with other skin ulcer; L97.822 Non-pressure chronic ulcer of other part of left lower leg with fat layer exposed; L03.116 Cellulitis of left lower limb; E11.69 Type 2 diabetes mellitus with other specified complication; M86.8X7 Other osteomyelitis, ankle and foot; E78.5 Hyperlipidemia, unspecified; I11.0 Hypertensive heart disease with heart failure; I50.9 Heart failure, unspecified; I25.10 Atherosclerotic heart disease of native coronary artery without angina pectoris; I48.91 Unspecified atrial fibrillation; J45.909 Unspecified asthma, uncomplicated; M10.9 Gout, unspecified; Z90.49 Acquired absence of other specified parts of digestive tract; Z95.5 Presence of coronary angioplasty implant and graft; X58.XXXD Exposure to other specified factors, subsequent encounter ==

== ENCOUNTER → 2022-05-05 | Outpatient (CLI) | payer BC | END | disposition home or self-care (01) | LOC: WOUNDCARE 01:20 | PROVIDERS: ATTEND Nurse Practitioner Family | DX: E11.622 Type 2 diabetes mellitus with other skin ulcer (principal); I83.028 Varicose veins of left lower extremity with ulcer other part of lower leg; L97.822 Non-pressure chronic ulcer of other part of left lower leg with fat layer exposed; S81.802D Unspecified open wound, left lower leg, subsequent encounter; L03.116 Cellulitis of left lower limb; E11.69 Type 2 diabetes mellitus with other specified complication; M86.8X7 Other osteomyelitis, ankle and foot; E78.5 Hyperlipidemia, unspecified; I11.0 Hypertensive heart disease with heart failure; I50.9 Heart failure, unspecified; M10.9 Gout, unspecified; I48.91 Unspecified atrial fibrillation; I25.10 Atherosclerotic heart disease of native coronary artery without angina pectoris; J45.909 Unspecified asthma, uncomplicated; Z90.49 Acquired absence of other specified parts of digestive tract; Z95.5 Presence of coronary angioplasty implant and graft; X58.XXXD Exposure to other specified factors, subsequent encounter ==

== ENCOUNTER → 2022-05-12 | Outpatient (CLI) | payer BC | END | disposition home or self-care (01) | LOC: WOUNDCARE 00:39 | PROVIDERS: ATTEND Nurse Practitioner Family | DX: E11.622 Type 2 diabetes mellitus with other skin ulcer (principal); I83.028 Varicose veins of left lower extremity with ulcer other part of lower leg; L97.822 Non-pressure chronic ulcer of other part of left lower leg with fat layer exposed; S81.802D Unspecified open wound, left lower leg, subsequent encounter; L03.116 Cellulitis of left lower limb; E11.69 Type 2 diabetes mellitus with other specified complication; M86.8X7 Other osteomyelitis, ankle and foot; E78.5 Hyperlipidemia, unspecified; I11.0 Hypertensive heart disease with heart failure; I50.9 Heart failure, unspecified; I48.91 Unspecified atrial fibrillation; I25.10 Atherosclerotic heart disease of native coronary artery without angina pectoris; J45.909 Unspecified asthma, uncomplicated; M10.9 Gout, unspecified; Z90.49 Acquired absence of other specified parts of digestive tract; Z95.5 Presence of coronary angioplasty implant and graft; X58.XXXD Exposure to other specified factors, subsequent encounter ==

== ENCOUNTER → 2022-05-19 | Outpatient (CLI) | payer BC | END | disposition home or self-care (01) | LOC: WOUNDCARE 02:44 | PROVIDERS: ATTEND Nurse Practitioner Family | DX: E11.621 Type 2 diabetes mellitus with foot ulcer (principal); I83.028 Varicose veins of left lower extremity with ulcer other part of lower leg; L97.822 Non-pressure chronic ulcer of other part of left lower leg with fat layer exposed; S81.802D Unspecified open wound, left lower leg, subsequent encounter; L03.116 Cellulitis of left lower limb; E11.69 Type 2 diabetes mellitus with other specified complication; M86.8X7 Other osteomyelitis, ankle and foot; E78.5 Hyperlipidemia, unspecified; I11.0 Hypertensive heart disease with heart failure; I50.9 Heart failure, unspecified; I48.91 Unspecified atrial fibrillation; I25.10 Atherosclerotic heart disease of native coronary artery without angina pectoris; J45.909 Unspecified asthma, uncomplicated; M10.9 Gout, unspecified; Z90.49 Acquired absence of other specified parts of digestive tract; Z95.5 Presence of coronary angioplasty implant and graft; X58.XXXD Exposure to other specified factors, subsequent encounter ==

== ENCOUNTER → 2022-05-27 | Outpatient (CLI) | payer BC | END | disposition home or self-care (01) | LOC: WOUNDCARE 01:05 | PROVIDERS: ATTEND Nurse Practitioner Family | DX: E11.622 Type 2 diabetes mellitus with other skin ulcer (principal); I83.028 Varicose veins of left lower extremity with ulcer other part of lower leg; L97.822 Non-pressure chronic ulcer of other part of left lower leg with fat layer exposed; L03.116 Cellulitis of left lower limb; S81.802D Unspecified open wound, left lower leg, subsequent encounter; E11.69 Type 2 diabetes mellitus with other specified complication; M86.8X7 Other osteomyelitis, ankle and foot; I11.0 Hypertensive heart disease with heart failure; I50.9 Heart failure, unspecified; I25.10 Atherosclerotic heart disease of native coronary artery without angina pectoris; I48.91 Unspecified atrial fibrillation; E78.5 Hyperlipidemia, unspecified; J45.909 Unspecified asthma, uncomplicated; M10.9 Gout, unspecified; Z90.49 Acquired absence of other specified parts of digestive tract; Z95.5 Presence of coronary angioplasty implant and graft; X58.XXXD Exposure to other specified factors, subsequent encounter ==

== ENCOUNTER → 2022-06-03 | Outpatient (CLI) | payer BC | LOC: WOUNDCARE 02:25 | PROVIDERS: ATTEND Nurse Practitioner Family | DX: Z53.21 Procedure and treatment not carried out due to patient leaving prior to being seen by health care provider (principal) ==

== ENCOUNTER → 2022-06-04 | Outpatient (CLI) | payer BC | LOC: WOUNDCARE 00:44 | PROVIDERS: ATTEND Nurse Practitioner Family | DX: E11.622 Type 2 diabetes mellitus with other skin ulcer (principal); I83.028 Varicose veins of left lower extremity with ulcer other part of lower leg; L97.822 Non-pressure chronic ulcer of other part of left lower leg with fat layer exposed; S81.802D Unspecified open wound, left lower leg, subsequent encounter; L03.116 Cellulitis of left lower limb; E11.69 Type 2 diabetes mellitus with other specified complication; M86.8X7 Other osteomyelitis, ankle and foot; I25.10 Atherosclerotic heart disease of native coronary artery without angina pectoris; I11.0 Hypertensive heart disease with heart failure; I50.9 Heart failure, unspecified; I48.91 Unspecified atrial fibrillation; E78.5 Hyperlipidemia, unspecified; J45.909 Unspecified asthma, uncomplicated; M10.9 Gout, unspecified; Z90.49 Acquired absence of other specified parts of digestive tract; Z95.5 Presence of coronary angioplasty implant and graft; X58.XXXD Exposure to other specified factors, subsequent encounter ==

== ENCOUNTER → 2022-06-11 | Outpatient (CLI) | payer BC | END | disposition home or self-care (01) | LOC: WOUNDCARE 01:53 | PROVIDERS: ATTEND Nurse Practitioner Family | DX: L03.116 Cellulitis of left lower limb (principal); S81.802D Unspecified open wound, left lower leg, subsequent encounter; E11.622 Type 2 diabetes mellitus with other skin ulcer; L97.822 Non-pressure chronic ulcer of other part of left lower leg with fat layer exposed; I83.028 Varicose veins of left lower extremity with ulcer other part of lower leg; E11.69 Type 2 diabetes mellitus with other specified complication; M86.8X7 Other osteomyelitis, ankle and foot; E78.5 Hyperlipidemia, unspecified; I11.0 Hypertensive heart disease with heart failure; I50.9 Heart failure, unspecified; I25.10 Atherosclerotic heart disease of native coronary artery without angina pectoris; I48.91 Unspecified atrial fibrillation; J45.909 Unspecified asthma, uncomplicated; M10.9 Gout, unspecified; Z90.49 Acquired absence of other specified parts of digestive tract; Z95.5 Presence of coronary angioplasty implant and graft; X58.XXXD Exposure to other specified factors, subsequent encounter ==

== ENCOUNTER → 2022-06-14 | Outpatient (CLI) | payer BC | END | disposition home or self-care (01) | LOC: WOUNDCARE 08:45 | PROVIDERS: ATTEND Surgery | DX: L03.116 Cellulitis of left lower limb (principal); E11.621 Type 2 diabetes mellitus with foot ulcer; I83.028 Varicose veins of left lower extremity with ulcer other part of lower leg; L97.822 Non-pressure chronic ulcer of other part of left lower leg with fat layer exposed; S81.802D Unspecified open wound, left lower leg, subsequent encounter; E11.69 Type 2 diabetes mellitus with other specified complication; M86.8X7 Other osteomyelitis, ankle and foot; I11.0 Hypertensive heart disease with heart failure; I50.9 Heart failure, unspecified; E78.5 Hyperlipidemia, unspecified; I48.91 Unspecified atrial fibrillation; J45.909 Unspecified asthma, uncomplicated; I25.10 Atherosclerotic heart disease of native coronary artery without angina pectoris; M10.9 Gout, unspecified; Z90.49 Acquired absence of other specified parts of digestive tract; Z95.5 Presence of coronary angioplasty implant and graft; X58.XXXD Exposure to other specified factors, subsequent encounter ==

== ENCOUNTER → 2022-06-17 | Outpatient (CLI) | payer BC | END | disposition home or self-care (01) | LOC: WOUNDCARE 07:05 | PROVIDERS: ATTEND Nurse Practitioner Family | DX: L03.116 Cellulitis of left lower limb (principal); E11.622 Type 2 diabetes mellitus with other skin ulcer; I83.028 Varicose veins of left lower extremity with ulcer other part of lower leg; L97.822 Non-pressure chronic ulcer of other part of left lower leg with fat layer exposed; S81.802D Unspecified open wound, left lower leg, subsequent encounter; E11.69 Type 2 diabetes mellitus with other specified complication; M86.8X7 Other osteomyelitis, ankle and foot; I11.0 Hypertensive heart disease with heart failure; I50.9 Heart failure, unspecified; E78.5 Hyperlipidemia, unspecified; I48.91 Unspecified atrial fibrillation; I25.10 Atherosclerotic heart disease of native coronary artery without angina pectoris; J45.909 Unspecified asthma, uncomplicated; M10.9 Gout, unspecified; Z90.49 Acquired absence of other specified parts of digestive tract; Z95.5 Presence of coronary angioplasty implant and graft; X58.XXXD Exposure to other specified factors, subsequent encounter ==

== ENCOUNTER → 2022-06-21 | Outpatient (CLI) | payer BC | LOC: WOUNDCARE 03:46 | PROVIDERS: ATTEND Surgery | DX: L03.116 Cellulitis of left lower limb (principal); S81.802D Unspecified open wound, left lower leg, subsequent encounter; E11.622 Type 2 diabetes mellitus with other skin ulcer; I83.028 Varicose veins of left lower extremity with ulcer other part of lower leg; L97.822 Non-pressure chronic ulcer of other part of left lower leg with fat layer exposed; E11.69 Type 2 diabetes mellitus with other specified complication; M86.8X7 Other osteomyelitis, ankle and foot; E78.5 Hyperlipidemia, unspecified; I11.0 Hypertensive heart disease with heart failure; I50.9 Heart failure, unspecified; I48.91 Unspecified atrial fibrillation; I25.10 Atherosclerotic heart disease of native coronary artery without angina pectoris; J45.909 Unspecified asthma, uncomplicated; M10.9 Gout, unspecified; Z90.49 Acquired absence of other specified parts of digestive tract; Z95.5 Presence of coronary angioplasty implant and graft; X58.XXXD Exposure to other specified factors, subsequent encounter ==

== ENCOUNTER → 2022-06-24 | Outpatient (CLI) | payer BC | END | disposition home or self-care (01) | LOC: WOUNDCARE 00:22 | PROVIDERS: ATTEND Nurse Practitioner Family | DX: E11.622 Type 2 diabetes mellitus with other skin ulcer (principal); I83.028 Varicose veins of left lower extremity with ulcer other part of lower leg; L97.822 Non-pressure chronic ulcer of other part of left lower leg with fat layer exposed; S81.802D Unspecified open wound, left lower leg, subsequent encounter; E11.69 Type 2 diabetes mellitus with other specified complication; M86.8X7 Other osteomyelitis, ankle and foot; E78.5 Hyperlipidemia, unspecified; I11.0 Hypertensive heart disease with heart failure; I50.9 Heart failure, unspecified; I48.91 Unspecified atrial fibrillation; I25.10 Atherosclerotic heart disease of native coronary artery without angina pectoris; J45.909 Unspecified asthma, uncomplicated; M10.9 Gout, unspecified; Z90.49 Acquired absence of other specified parts of digestive tract; Z95.5 Presence of coronary angioplasty implant and graft; X58.XXXD Exposure to other specified factors, subsequent encounter ==

== ENCOUNTER → 2022-06-28 | Outpatient (CLI) | payer BC | END | disposition home or self-care (01) | LOC: WOUNDCARE 00:42 | PROVIDERS: ATTEND Surgery | DX: E11.622 Type 2 diabetes mellitus with other skin ulcer (principal); I83.028 Varicose veins of left lower extremity with ulcer other part of lower leg; L97.822 Non-pressure chronic ulcer of other part of left lower leg with fat layer exposed; S81.802D Unspecified open wound, left lower leg, subsequent encounter; E11.69 Type 2 diabetes mellitus with other specified complication; M86.8X7 Other osteomyelitis, ankle and foot; E78.5 Hyperlipidemia, unspecified; I11.0 Hypertensive heart disease with heart failure; I50.9 Heart failure, unspecified; I48.91 Unspecified atrial fibrillation; I25.10 Atherosclerotic heart disease of native coronary artery without angina pectoris; J45.909 Unspecified asthma, uncomplicated; M10.9 Gout, unspecified; Z90.49 Acquired absence of other specified parts of digestive tract; X58.XXXD Exposure to other specified factors, subsequent encounter ==

== ENCOUNTER → 2022-07-01 | Outpatient (CLI) | payer BC | END | disposition home or self-care (01) | LOC: WOUNDCARE 08:36 | PROVIDERS: ATTEND Nurse Practitioner Family | DX: E11.622 Type 2 diabetes mellitus with other skin ulcer (principal); L97.822 Non-pressure chronic ulcer of other part of left lower leg with fat layer exposed; S81.802D Unspecified open wound, left lower leg, subsequent encounter; I83.028 Varicose veins of left lower extremity with ulcer other part of lower leg; L03.116 Cellulitis of left lower limb; E11.69 Type 2 diabetes mellitus with other specified complication; M86.8X7 Other osteomyelitis, ankle and foot; E78.5 Hyperlipidemia, unspecified; I11.0 Hypertensive heart disease with heart failure; I50.9 Heart failure, unspecified; I25.10 Atherosclerotic heart disease of native coronary artery without angina pectoris; I48.91 Unspecified atrial fibrillation; J45.909 Unspecified asthma, uncomplicated; M10.9 Gout, unspecified; Z90.49 Acquired absence of other specified parts of digestive tract; Z95.5 Presence of coronary angioplasty implant and graft; X58.XXXD Exposure to other specified factors, subsequent encounter ==

== ENCOUNTER → 2022-07-07 | Outpatient (CLI) | payer BC | END | disposition home or self-care (01) | LOC: WOUNDCARE 04:47 | PROVIDERS: ATTEND Surgery | DX: L03.116 Cellulitis of left lower limb (principal); E11.622 Type 2 diabetes mellitus with other skin ulcer; I83.028 Varicose veins of left lower extremity with ulcer other part of lower leg; L97.822 Non-pressure chronic ulcer of other part of left lower leg with fat layer exposed; S81.802D Unspecified open wound, left lower leg, subsequent encounter; E11.69 Type 2 diabetes mellitus with other specified complication; M86.8X7 Other osteomyelitis, ankle and foot; E78.5 Hyperlipidemia, unspecified; I11.0 Hypertensive heart disease with heart failure; I50.9 Heart failure, unspecified; I48.91 Unspecified atrial fibrillation; I25.10 Atherosclerotic heart disease of native coronary artery without angina pectoris; J45.909 Unspecified asthma, uncomplicated; M10.9 Gout, unspecified; Z90.49 Acquired absence of other specified parts of digestive tract; Z95.5 Presence of coronary angioplasty implant and graft; X58.XXXD Exposure to other specified factors, subsequent encounter ==

== ENCOUNTER → 2022-07-15 | Outpatient (CLI) | payer BC | END | disposition home or self-care (01) | LOC: WOUNDCARE 02:24 | PROVIDERS: ATTEND Nurse Practitioner Family | DX: E11.622 Type 2 diabetes mellitus with other skin ulcer (principal); I83.028 Varicose veins of left lower extremity with ulcer other part of lower leg; L97.822 Non-pressure chronic ulcer of other part of left lower leg with fat layer exposed; S81.802D Unspecified open wound, left lower leg, subsequent encounter; E11.69 Type 2 diabetes mellitus with other specified complication; M86.8X7 Other osteomyelitis, ankle and foot; I25.10 Atherosclerotic heart disease of native coronary artery without angina pectoris; I11.0 Hypertensive heart disease with heart failure; I50.9 Heart failure, unspecified; I48.91 Unspecified atrial fibrillation; E78.5 Hyperlipidemia, unspecified; M10.9 Gout, unspecified; J45.909 Unspecified asthma, uncomplicated; Z90.49 Acquired absence of other specified parts of digestive tract; Z95.5 Presence of coronary angioplasty implant and graft; X58.XXXD Exposure to other specified factors, subsequent encounter ==

== ENCOUNTER → 2022-07-20 | Outpatient (CLI) | payer BC | END | disposition home or self-care (01) | LOC: WOUNDCARE 01:15 | PROVIDERS: ATTEND Nurse Practitioner Family | DX: E11.622 Type 2 diabetes mellitus with other skin ulcer (principal); I83.028 Varicose veins of left lower extremity with ulcer other part of lower leg; L97.822 Non-pressure chronic ulcer of other part of left lower leg with fat layer exposed; S81.802D Unspecified open wound, left lower leg, subsequent encounter; L03.116 Cellulitis of left lower limb; E11.69 Type 2 diabetes mellitus with other specified complication; M86.8X7 Other osteomyelitis, ankle and foot; I11.0 Hypertensive heart disease with heart failure; I50.9 Heart failure, unspecified; I25.10 Atherosclerotic heart disease of native coronary artery without angina pectoris; I48.91 Unspecified atrial fibrillation; E78.5 Hyperlipidemia, unspecified; M10.9 Gout, unspecified; J45.909 Unspecified asthma, uncomplicated; Z90.49 Acquired absence of other specified parts of digestive tract; Z95.5 Presence of coronary angioplasty implant and graft; X58.XXXD Exposure to other specified factors, subsequent encounter ==

== ENCOUNTER → 2022-07-22 | Outpatient (CLI) | payer BC | END | disposition home or self-care (01) | LOC: WOUNDCARE 07-21 18:05 | PROVIDERS: ATTEND Nurse Practitioner Family | DX: S81.802D Unspecified open wound, left lower leg, subsequent encounter (principal); E11.622 Type 2 diabetes mellitus with other skin ulcer; I83.028 Varicose veins of left lower extremity with ulcer other part of lower leg; L97.822 Non-pressure chronic ulcer of other part of left lower leg with fat layer exposed; E11.69 Type 2 diabetes mellitus with other specified complication; M86.8X7 Other osteomyelitis, ankle and foot; I25.10 Atherosclerotic heart disease of native coronary artery without angina pectoris; I11.0 Hypertensive heart disease with heart failure; I50.9 Heart failure, unspecified; I48.91 Unspecified atrial fibrillation; E78.5 Hyperlipidemia, unspecified; J45.909 Unspecified asthma, uncomplicated; M10.9 Gout, unspecified; Z90.49 Acquired absence of other specified parts of digestive tract; Z95.5 Presence of coronary angioplasty implant and graft; X58.XXXD Exposure to other specified factors, subsequent encounter ==

== ENCOUNTER → 2022-07-27 | Outpatient (CLI) | payer BC | END | disposition home or self-care (01) | LOC: WOUNDCARE 01:15 | PROVIDERS: ATTEND Nurse Practitioner Family | DX: E11.622 Type 2 diabetes mellitus with other skin ulcer (principal); L97.822 Non-pressure chronic ulcer of other part of left lower leg with fat layer exposed; S81.802D Unspecified open wound, left lower leg, subsequent encounter; I83.028 Varicose veins of left lower extremity with ulcer other part of lower leg; L03.116 Cellulitis of left lower limb; Z90.49 Acquired absence of other specified parts of digestive tract; Z95.5 Presence of coronary angioplasty implant and graft; I11.0 Hypertensive heart disease with heart failure; I50.9 Heart failure, unspecified; I25.10 Atherosclerotic heart disease of native coronary artery without angina pectoris; E11.69 Type 2 diabetes mellitus with other specified complication; M86.8X7 Other osteomyelitis, ankle and foot; I48.91 Unspecified atrial fibrillation; J45.909 Unspecified asthma, uncomplicated; M10.9 Gout, unspecified; E78.5 Hyperlipidemia, unspecified ==

== ENCOUNTER → 2022-08-03 | Outpatient (CLI) | payer BC | END | disposition home or self-care (01) | LOC: WOUNDCARE 02:02 | PROVIDERS: ATTEND Nurse Practitioner Family | DX: E11.622 Type 2 diabetes mellitus with other skin ulcer (principal); I83.028 Varicose veins of left lower extremity with ulcer other part of lower leg; L97.822 Non-pressure chronic ulcer of other part of left lower leg with fat layer exposed; L03.116 Cellulitis of left lower limb; S81.802D Unspecified open wound, left lower leg, subsequent encounter; E11.69 Type 2 diabetes mellitus with other specified complication; M86.8X7 Other osteomyelitis, ankle and foot; I11.0 Hypertensive heart disease with heart failure; I50.9 Heart failure, unspecified; E78.5 Hyperlipidemia, unspecified; I48.91 Unspecified atrial fibrillation; I25.10 Atherosclerotic heart disease of native coronary artery without angina pectoris; J45.909 Unspecified asthma, uncomplicated; M10.9 Gout, unspecified; Z90.49 Acquired absence of other specified parts of digestive tract; Z95.5 Presence of coronary angioplasty implant and graft; X58.XXXD Exposure to other specified factors, subsequent encounter ==

== ENCOUNTER → 2022-08-10 | Outpatient (CLI) | payer BC | END | disposition home or self-care (01) | LOC: WOUNDCARE 02:07 | PROVIDERS: ATTEND Nurse Practitioner Family | DX: E11.622 Type 2 diabetes mellitus with other skin ulcer (principal); I83.028 Varicose veins of left lower extremity with ulcer other part of lower leg; L97.822 Non-pressure chronic ulcer of other part of left lower leg with fat layer exposed; L03.116 Cellulitis of left lower limb; S81.802D Unspecified open wound, left lower leg, subsequent encounter; E11.69 Type 2 diabetes mellitus with other specified complication; M86.8X7 Other osteomyelitis, ankle and foot; I11.0 Hypertensive heart disease with heart failure; I50.9 Heart failure, unspecified; E78.5 Hyperlipidemia, unspecified; I48.91 Unspecified atrial fibrillation; I25.10 Atherosclerotic heart disease of native coronary artery without angina pectoris; J45.909 Unspecified asthma, uncomplicated; M10.9 Gout, unspecified; Z90.49 Acquired absence of other specified parts of digestive tract; Z95.5 Presence of coronary angioplasty implant and graft; X58.XXXD Exposure to other specified factors, subsequent encounter ==

== ENCOUNTER → 2022-08-17 | Outpatient (CLI) | payer BC | END | disposition home or self-care (01) | LOC: WOUNDCARE 02:31 | PROVIDERS: ATTEND Nurse Practitioner Family | DX: E11.622 Type 2 diabetes mellitus with other skin ulcer (principal); I83.028 Varicose veins of left lower extremity with ulcer other part of lower leg; L97.822 Non-pressure chronic ulcer of other part of left lower leg with fat layer exposed; L03.116 Cellulitis of left lower limb; S81.802D Unspecified open wound, left lower leg, subsequent encounter; E11.69 Type 2 diabetes mellitus with other specified complication; M86.8X7 Other osteomyelitis, ankle and foot; I11.0 Hypertensive heart disease with heart failure; I50.9 Heart failure, unspecified; E78.5 Hyperlipidemia, unspecified; I48.91 Unspecified atrial fibrillation; I25.10 Atherosclerotic heart disease of native coronary artery without angina pectoris; J45.909 Unspecified asthma, uncomplicated; M10.9 Gout, unspecified; Z90.49 Acquired absence of other specified parts of digestive tract; Z95.5 Presence of coronary angioplasty implant and graft; X58.XXXD Exposure to other specified factors, subsequent encounter ==

== ENCOUNTER → 2022-08-24 | Outpatient (CLI) | payer BC | END | disposition home or self-care (01) | LOC: WOUNDCARE 03:22 | PROVIDERS: ATTEND Nurse Practitioner Family | DX: L03.116 Cellulitis of left lower limb (principal); E11.622 Type 2 diabetes mellitus with other skin ulcer; I83.028 Varicose veins of left lower extremity with ulcer other part of lower leg; L97.822 Non-pressure chronic ulcer of other part of left lower leg with fat layer exposed; S81.802D Unspecified open wound, left lower leg, subsequent encounter; E11.69 Type 2 diabetes mellitus with other specified complication; M86.8X7 Other osteomyelitis, ankle and foot; I11.0 Hypertensive heart disease with heart failure; I50.9 Heart failure, unspecified; I25.10 Atherosclerotic heart disease of native coronary artery without angina pectoris; I48.91 Unspecified atrial fibrillation; M10.9 Gout, unspecified; E78.5 Hyperlipidemia, unspecified; Z90.49 Acquired absence of other specified parts of digestive tract; Z95.5 Presence of coronary angioplasty implant and graft; X58.XXXD Exposure to other specified factors, subsequent encounter ==

== ENCOUNTER → 2022-08-31 | Outpatient (CLI) | payer BC | END | disposition home or self-care (01) | LOC: WOUNDCARE 02:09 | PROVIDERS: ATTEND Nurse Practitioner Family | DX: E11.622 Type 2 diabetes mellitus with other skin ulcer (principal); I83.028 Varicose veins of left lower extremity with ulcer other part of lower leg; L97.822 Non-pressure chronic ulcer of other part of left lower leg with fat layer exposed; S81.802D Unspecified open wound, left lower leg, subsequent encounter; L03.116 Cellulitis of left lower limb; E11.69 Type 2 diabetes mellitus with other specified complication; M86.8X7 Other osteomyelitis, ankle and foot; I11.0 Hypertensive heart disease with heart failure; I50.9 Heart failure, unspecified; I25.10 Atherosclerotic heart disease of native coronary artery without angina pectoris; I48.91 Unspecified atrial fibrillation; E78.5 Hyperlipidemia, unspecified; J45.909 Unspecified asthma, uncomplicated; M10.9 Gout, unspecified; Z90.49 Acquired absence of other specified parts of digestive tract; Z95.5 Presence of coronary angioplasty implant and graft; X58.XXXD Exposure to other specified factors, subsequent encounter ==

== ENCOUNTER → 2022-09-07 | Outpatient (CLI) | payer BC | END | disposition home or self-care (01) | LOC: WOUNDCARE 04:40 | PROVIDERS: ATTEND Nurse Practitioner Family | DX: L03.116 Cellulitis of left lower limb (principal); E11.622 Type 2 diabetes mellitus with other skin ulcer; I83.028 Varicose veins of left lower extremity with ulcer other part of lower leg; L97.822 Non-pressure chronic ulcer of other part of left lower leg with fat layer exposed; S81.802D Unspecified open wound, left lower leg, subsequent encounter; E11.69 Type 2 diabetes mellitus with other specified complication; M86.8X7 Other osteomyelitis, ankle and foot; I11.0 Hypertensive heart disease with heart failure; I50.9 Heart failure, unspecified; I25.10 Atherosclerotic heart disease of native coronary artery without angina pectoris; I48.91 Unspecified atrial fibrillation; E78.5 Hyperlipidemia, unspecified; J45.909 Unspecified asthma, uncomplicated; M10.9 Gout, unspecified; Z90.49 Acquired absence of other specified parts of digestive tract; Z95.5 Presence of coronary angioplasty implant and graft; X58.XXXD Exposure to other specified factors, subsequent encounter ==

== ENCOUNTER → 2022-09-14 | Outpatient (CLI) | payer BC | END | disposition home or self-care (01) | LOC: WOUNDCARE 01:02 | PROVIDERS: ATTEND Nurse Practitioner Family | DX: S81.802D Unspecified open wound, left lower leg, subsequent encounter (principal); E11.622 Type 2 diabetes mellitus with other skin ulcer; I83.028 Varicose veins of left lower extremity with ulcer other part of lower leg; L97.822 Non-pressure chronic ulcer of other part of left lower leg with fat layer exposed; L03.116 Cellulitis of left lower limb; E11.69 Type 2 diabetes mellitus with other specified complication; M86.8X7 Other osteomyelitis, ankle and foot; I11.0 Hypertensive heart disease with heart failure; I50.9 Heart failure, unspecified; I25.10 Atherosclerotic heart disease of native coronary artery without angina pectoris; I48.91 Unspecified atrial fibrillation; E78.5 Hyperlipidemia, unspecified; J45.909 Unspecified asthma, uncomplicated; M10.9 Gout, unspecified; Z90.49 Acquired absence of other specified parts of digestive tract; Z95.5 Presence of coronary angioplasty implant and graft; X58.XXXD Exposure to other specified factors, subsequent encounter ==

== ENCOUNTER → 2022-09-21 | Outpatient (CLI) | payer BC | END | disposition home or self-care (01) | LOC: WOUNDCARE 01:52 | PROVIDERS: ATTEND Nurse Practitioner Family | DX: L03.116 Cellulitis of left lower limb (principal); E11.622 Type 2 diabetes mellitus with other skin ulcer; I83.028 Varicose veins of left lower extremity with ulcer other part of lower leg; L97.822 Non-pressure chronic ulcer of other part of left lower leg with fat layer exposed; S81.802D Unspecified open wound, left lower leg, subsequent encounter; E11.69 Type 2 diabetes mellitus with other specified complication; M86.8X7 Other osteomyelitis, ankle and foot; E78.5 Hyperlipidemia, unspecified; I11.0 Hypertensive heart disease with heart failure; I50.9 Heart failure, unspecified; I25.10 Atherosclerotic heart disease of native coronary artery without angina pectoris; I48.91 Unspecified atrial fibrillation; J45.909 Unspecified asthma, uncomplicated; M10.9 Gout, unspecified; Z90.49 Acquired absence of other specified parts of digestive tract; Z95.5 Presence of coronary angioplasty implant and graft; X58.XXXD Exposure to other specified factors, subsequent encounter ==

== ENCOUNTER → 2022-09-28 | Outpatient (CLI) | payer BC | END | disposition home or self-care (01) | LOC: WOUNDCARE 00:47 | PROVIDERS: ATTEND Nurse Practitioner Family | DX: E11.622 Type 2 diabetes mellitus with other skin ulcer (principal); I83.028 Varicose veins of left lower extremity with ulcer other part of lower leg; L97.822 Non-pressure chronic ulcer of other part of left lower leg with fat layer exposed; S81.802D Unspecified open wound, left lower leg, subsequent encounter; L03.116 Cellulitis of left lower limb; E11.69 Type 2 diabetes mellitus with other specified complication; M86.8X7 Other osteomyelitis, ankle and foot; I11.0 Hypertensive heart disease with heart failure; I50.9 Heart failure, unspecified; I25.10 Atherosclerotic heart disease of native coronary artery without angina pectoris; I48.91 Unspecified atrial fibrillation; E78.5 Hyperlipidemia, unspecified; J45.909 Unspecified asthma, uncomplicated; M10.9 Gout, unspecified; Z90.49 Acquired absence of other specified parts of digestive tract; Z95.5 Presence of coronary angioplasty implant and graft; X58.XXXD Exposure to other specified factors, subsequent encounter ==

== ENCOUNTER → 2022-10-05 | Outpatient (CLI) | payer BC | END | disposition home or self-care (01) | LOC: WOUNDCARE 03:30 | PROVIDERS: ATTEND Nurse Practitioner Family | DX: L03.116 Cellulitis of left lower limb (principal); E11.622 Type 2 diabetes mellitus with other skin ulcer; I83.028 Varicose veins of left lower extremity with ulcer other part of lower leg; L97.822 Non-pressure chronic ulcer of other part of left lower leg with fat layer exposed; S81.802D Unspecified open wound, left lower leg, subsequent encounter; E11.69 Type 2 diabetes mellitus with other specified complication; M86.8X7 Other osteomyelitis, ankle and foot; E78.5 Hyperlipidemia, unspecified; I11.0 Hypertensive heart disease with heart failure; I50.9 Heart failure, unspecified; I25.10 Atherosclerotic heart disease of native coronary artery without angina pectoris; I48.91 Unspecified atrial fibrillation; J45.909 Unspecified asthma, uncomplicated; M10.9 Gout, unspecified; Z90.49 Acquired absence of other specified parts of digestive tract; Z95.5 Presence of coronary angioplasty implant and graft; X58.XXXD Exposure to other specified factors, subsequent encounter ==

== ENCOUNTER → 2022-10-12 | Outpatient (CLI) | payer BC | END | disposition home or self-care (01) | LOC: WOUNDCARE 02:59 | PROVIDERS: ATTEND Nurse Practitioner Family | DX: E11.622 Type 2 diabetes mellitus with other skin ulcer (principal); I83.028 Varicose veins of left lower extremity with ulcer other part of lower leg; L97.822 Non-pressure chronic ulcer of other part of left lower leg with fat layer exposed; S81.802D Unspecified open wound, left lower leg, subsequent encounter; L03.116 Cellulitis of left lower limb; E11.69 Type 2 diabetes mellitus with other specified complication; M86.8X7 Other osteomyelitis, ankle and foot; I25.10 Atherosclerotic heart disease of native coronary artery without angina pectoris; I11.0 Hypertensive heart disease with heart failure; I50.9 Heart failure, unspecified; I48.91 Unspecified atrial fibrillation; E78.5 Hyperlipidemia, unspecified; J45.909 Unspecified asthma, uncomplicated; M10.9 Gout, unspecified; Z90.49 Acquired absence of other specified parts of digestive tract; Z95.5 Presence of coronary angioplasty implant and graft; X58.XXXD Exposure to other specified factors, subsequent encounter ==

== ENCOUNTER → 2022-10-19 | Outpatient (CLI) | payer BC | END | disposition home or self-care (01) | LOC: WOUNDCARE 02:58 | PROVIDERS: ATTEND Nurse Practitioner Family | DX: L03.116 Cellulitis of left lower limb (principal); E11.622 Type 2 diabetes mellitus with other skin ulcer; I83.028 Varicose veins of left lower extremity with ulcer other part of lower leg; L97.822 Non-pressure chronic ulcer of other part of left lower leg with fat layer exposed; S81.802D Unspecified open wound, left lower leg, subsequent encounter; E11.69 Type 2 diabetes mellitus with other specified complication; M86.8X7 Other osteomyelitis, ankle and foot; I25.10 Atherosclerotic heart disease of native coronary artery without angina pectoris; I11.0 Hypertensive heart disease with heart failure; I50.9 Heart failure, unspecified; I48.91 Unspecified atrial fibrillation; J45.909 Unspecified asthma, uncomplicated; M10.9 Gout, unspecified; Z90.49 Acquired absence of other specified parts of digestive tract; Z95.5 Presence of coronary angioplasty implant and graft; X58.XXXD Exposure to other specified factors, subsequent encounter ==

== ENCOUNTER → 2022-11-02 | Outpatient (CLI) | payer OTHER, BC ==
[~2022-11-02] MED LIST changes: +BREO ELLIPTA 21 EACH INH
== END | disposition home or self-care (01) ==
LOC: WOUNDCARE 01:37
PROVIDERS: ATTEND Nurse Practitioner Family
DX: L03.116 Cellulitis of left lower limb (principal); E11.622 Type 2 diabetes mellitus with other skin ulcer; I83.028 Varicose veins of left lower extremity with ulcer other part of lower leg; L97.822 Non-pressure chronic ulcer of other part of left lower leg with fat layer exposed; S81.802D Unspecified open wound, left lower leg, subsequent encounter; E11.69 Type 2 diabetes mellitus with other specified complication; M86.8X7 Other osteomyelitis, ankle and foot; I25.10 Atherosclerotic heart disease of native coronary artery without angina pectoris; I11.0 Hypertensive heart disease with heart failure; I50.9 Heart failure, unspecified; I48.91 Unspecified atrial fibrillation; E78.5 Hyperlipidemia, unspecified; J45.909 Unspecified asthma, uncomplicated; M10.9 Gout, unspecified; Z90.49 Acquired absence of other specified parts of digestive tract; Z95.5 Presence of coronary angioplasty implant and graft

== ENCOUNTER → 2022-11-10 | Outpatient (CLI) | payer OTHER | END | disposition home or self-care (01) | LOC: WOUNDCARE 03:07 | PROVIDERS: ATTEND Nurse Practitioner Family | DX: E11.622 Type 2 diabetes mellitus with other skin ulcer (principal); L97.822 Non-pressure chronic ulcer of other part of left lower leg with fat layer exposed; I83.028 Varicose veins of left lower extremity with ulcer other part of lower leg; L03.116 Cellulitis of left lower limb; S81.802D Unspecified open wound, left lower leg, subsequent encounter; E11.69 Type 2 diabetes mellitus with other specified complication; M86.8X7 Other osteomyelitis, ankle and foot; E78.5 Hyperlipidemia, unspecified; I25.10 Atherosclerotic heart disease of native coronary artery without angina pectoris; I11.0 Hypertensive heart disease with heart failure; I50.9 Heart failure, unspecified; I48.91 Unspecified atrial fibrillation; J45.909 Unspecified asthma, uncomplicated; M10.9 Gout, unspecified; Z90.49 Acquired absence of other specified parts of digestive tract; Z95.5 Presence of coronary angioplasty implant and graft; X58.XXXD Exposure to other specified factors, subsequent encounter ==

== ENCOUNTER → 2022-11-17 | Outpatient (CLI) | payer OTHER ==
[~2022-11-17] MED LIST changes: +AMMONIUM LACTA227 GM T; +LACTINEX 0.2 MG1 TAB PO; +VIBRA-TAB100 MG PO
== END | disposition home or self-care (01) ==
LOC: WOUNDCARE 01:08
PROVIDERS: ATTEND Nurse Practitioner Family
DX: E11.622 Type 2 diabetes mellitus with other skin ulcer (principal); I83.028 Varicose veins of left lower extremity with ulcer other part of lower leg; L97.822 Non-pressure chronic ulcer of other part of left lower leg with fat layer exposed; S81.802D Unspecified open wound, left lower leg, subsequent encounter; L03.116 Cellulitis of left lower limb; I11.0 Hypertensive heart disease with heart failure; I50.9 Heart failure, unspecified; E11.69 Type 2 diabetes mellitus with other specified complication; M86.8X7 Other osteomyelitis, ankle and foot; E78.5 Hyperlipidemia, unspecified; J45.909 Unspecified asthma, uncomplicated; I48.91 Unspecified atrial fibrillation; I25.10 Atherosclerotic heart disease of native coronary artery without angina pectoris; M10.9 Gout, unspecified; Z90.49 Acquired absence of other specified parts of digestive tract; Z95.5 Presence of coronary angioplasty implant and graft; X58.XXXD Exposure to other specified factors, subsequent encounter

== ENCOUNTER → 2022-12-01 | Outpatient (CLI) | payer OTHER | END | disposition home or self-care (01) | LOC: WOUNDCARE 11-24 02:48 | PROVIDERS: ATTEND Nurse Practitioner Family | DX: E11.622 Type 2 diabetes mellitus with other skin ulcer (principal); I83.028 Varicose veins of left lower extremity with ulcer other part of lower leg; L97.822 Non-pressure chronic ulcer of other part of left lower leg with fat layer exposed; S81.802D Unspecified open wound, left lower leg, subsequent encounter; L03.116 Cellulitis of left lower limb; E11.69 Type 2 diabetes mellitus with other specified complication; M86.8X7 Other osteomyelitis, ankle and foot; I11.0 Hypertensive heart disease with heart failure; I50.9 Heart failure, unspecified; I25.10 Atherosclerotic heart disease of native coronary artery without angina pectoris; I48.91 Unspecified atrial fibrillation; J45.909 Unspecified asthma, uncomplicated; E78.5 Hyperlipidemia, unspecified; M10.9 Gout, unspecified; Z90.49 Acquired absence of other specified parts of digestive tract; Z95.5 Presence of coronary angioplasty implant and graft; X58.XXXD Exposure to other specified factors, subsequent encounter ==

== ENCOUNTER → 2022-12-22 | Outpatient (CLI) | payer OTHER | END | disposition home or self-care (01) | LOC: WOUNDCARE 10-27 03:48 | PROVIDERS: ATTEND Nurse Practitioner Family | DX: L03.116 Cellulitis of left lower limb (principal); S81.802D Unspecified open wound, left lower leg, subsequent encounter; E11.622 Type 2 diabetes mellitus with other skin ulcer; I83.028 Varicose veins of left lower extremity with ulcer other part of lower leg; L97.822 Non-pressure chronic ulcer of other part of left lower leg with fat layer exposed; E11.69 Type 2 diabetes mellitus with other specified complication; M86.8X7 Other osteomyelitis, ankle and foot; I11.0 Hypertensive heart disease with heart failure; I50.9 Heart failure, unspecified; I25.10 Atherosclerotic heart disease of native coronary artery without angina pectoris; I48.91 Unspecified atrial fibrillation; E78.5 Hyperlipidemia, unspecified; J45.909 Unspecified asthma, uncomplicated; M10.9 Gout, unspecified; Z90.49 Acquired absence of other specified parts of digestive tract; Z95.5 Presence of coronary angioplasty implant and graft; X58.XXXD Exposure to other specified factors, subsequent encounter ==

== ENCOUNTER → 2022-12-22 | Outpatient (CLI) | payer OTHER ==
[2022-12-22 10:52] LABS: BASO % 0.5 % (0.0-1.0); EOS # 0.1 10*3/uL (0.0-0.4); EOS % 1.6 % (1.0-4.0); HEMATOCRIT 44.1 % (42.0-52.0); LYMPH # 1.5 10*3/uL (1.3-4.4); LYMPH % 22.7 % (27.0-41.0); MEAN CORPUSCULAR HGB CONC 32.2 g/dl (33.0-37.0); MEAN PLATELET VOLUME 9.7 fl (9.6-12.3); MONO # 0.4 10*3/uL (0.1-1.0); MONO % 6.4 % (3.0-9.0); NEUT # 4.4 10*3/uL (2.3-7.9); NEUT % 68.3 % (47.0-73.0); PLATELET COUNT AUTOMATED 257 10*3/uL (130-400); RED CELL DISTRI WIDTH 15.1 % (0-14.5); WHITE BLOOD COUNT 6.4 10*3/uL (4.8-10.8)
[2022-12-22 10:55] LABS: BILIRUBIN Negative (Negative); BLOOD Negative (Negative); CLARITY Clear (Clear); COLOR Yellow (Yellow); GLUCOSE Negative (Negative); KETONE Trace (Negative); LEUKO ESTERASE Negative (Negative); NITRITE Negative (Negative); PH 6.5 (4.5-8.0); SPECIFIC GRAVITY 1.015 (1.001-1.030)
[2022-12-22 11:10] LABS: POTASSIUM 4.2 mmol/L (3.4-5.1); THYROID STIM HORMONE (HS) 1.451 uIU/ml (0.550-4.780); TOTAL PROTEIN 7.1 gm/dL (6.0-8.0)
[2022-12-22 11:31] LABS: VITAMIN D, 25-HYDROXY 36.9 ng/mL (30-100)
[2022-12-22 11:36] LABS: BACTERIA 1+
== END | disposition home or self-care (01) ==
LOC: LAB 10:10
PROVIDERS: ATTEND Family Medicine
DX: E78.5 Hyperlipidemia, unspecified (principal); E55.9 Vitamin D deficiency, unspecified; R79.89 Other specified abnormal findings of blood chemistry; R53.83 Other fatigue; R74.8 Abnormal levels of other serum enzymes; Z12.5 Encounter for screening for malignant neoplasm of prostate

== ENCOUNTER → 2023-01-05 | Outpatient (CLI) | payer OTHER | END | disposition home or self-care (01) | LOC: WOUNDCARE 00:52 | PROVIDERS: ATTEND Nurse Practitioner Family | DX: L03.116 Cellulitis of left lower limb (principal); E11.622 Type 2 diabetes mellitus with other skin ulcer; I83.028 Varicose veins of left lower extremity with ulcer other part of lower leg; L97.822 Non-pressure chronic ulcer of other part of left lower leg with fat layer exposed; S81.802D Unspecified open wound, left lower leg, subsequent encounter; E11.69 Type 2 diabetes mellitus with other specified complication; M86.8X7 Other osteomyelitis, ankle and foot; E78.5 Hyperlipidemia, unspecified; I48.91 Unspecified atrial fibrillation; I25.10 Atherosclerotic heart disease of native coronary artery without angina pectoris; J45.909 Unspecified asthma, uncomplicated; I11.0 Hypertensive heart disease with heart failure; I50.9 Heart failure, unspecified; M10.9 Gout, unspecified; Z95.5 Presence of coronary angioplasty implant and graft; Z90.49 Acquired absence of other specified parts of digestive tract; X58.XXXD Exposure to other specified factors, subsequent encounter ==

== ENCOUNTER → 2023-01-19 | Outpatient (CLI) | payer OTHER | END | disposition home or self-care (01) | LOC: WOUNDCARE 03:16 | PROVIDERS: ATTEND Nurse Practitioner Family | DX: E11.622 Type 2 diabetes mellitus with other skin ulcer (principal); I83.028 Varicose veins of left lower extremity with ulcer other part of lower leg; L97.822 Non-pressure chronic ulcer of other part of left lower leg with fat layer exposed; S81.802D Unspecified open wound, left lower leg, subsequent encounter; L03.116 Cellulitis of left lower limb; E11.69 Type 2 diabetes mellitus with other specified complication; M86.8X7 Other osteomyelitis, ankle and foot; I25.10 Atherosclerotic heart disease of native coronary artery without angina pectoris; I11.0 Hypertensive heart disease with heart failure; I50.9 Heart failure, unspecified; I48.91 Unspecified atrial fibrillation; E78.5 Hyperlipidemia, unspecified; J45.909 Unspecified asthma, uncomplicated; M10.9 Gout, unspecified; Z90.49 Acquired absence of other specified parts of digestive tract; Z95.5 Presence of coronary angioplasty implant and graft; X58.XXXD Exposure to other specified factors, subsequent encounter ==

== ENCOUNTER → 2023-02-02 | Outpatient (CLI) | payer OTHER | END | disposition home or self-care (01) | LOC: WOUNDCARE 01:44 | PROVIDERS: ATTEND Nurse Practitioner Family | DX: L03.116 Cellulitis of left lower limb (principal); E11.622 Type 2 diabetes mellitus with other skin ulcer; I83.028 Varicose veins of left lower extremity with ulcer other part of lower leg; L97.822 Non-pressure chronic ulcer of other part of left lower leg with fat layer exposed; S81.802D Unspecified open wound, left lower leg, subsequent encounter; E11.69 Type 2 diabetes mellitus with other specified complication; M86.8X8 Other osteomyelitis, other site; E78.5 Hyperlipidemia, unspecified; I11.0 Hypertensive heart disease with heart failure; I50.9 Heart failure, unspecified; I48.91 Unspecified atrial fibrillation; I25.10 Atherosclerotic heart disease of native coronary artery without angina pectoris; J45.909 Unspecified asthma, uncomplicated; M10.9 Gout, unspecified; Z90.49 Acquired absence of other specified parts of digestive tract; Z95.5 Presence of coronary angioplasty implant and graft; X58.XXXD Exposure to other specified factors, subsequent encounter ==

== ENCOUNTER → 2023-02-24 | Outpatient (CLI) | payer OTHER | END | disposition home or self-care (01) | LOC: WOUNDCARE 01:04 | PROVIDERS: ATTEND Nurse Practitioner Family | DX: E11.622 Type 2 diabetes mellitus with other skin ulcer (principal); I83.028 Varicose veins of left lower extremity with ulcer other part of lower leg; L97.822 Non-pressure chronic ulcer of other part of left lower leg with fat layer exposed; S81.802D Unspecified open wound, left lower leg, subsequent encounter; E11.69 Type 2 diabetes mellitus with other specified complication; M86.8X7 Other osteomyelitis, ankle and foot; E78.5 Hyperlipidemia, unspecified; I25.10 Atherosclerotic heart disease of native coronary artery without angina pectoris; I11.0 Hypertensive heart disease with heart failure; I50.9 Heart failure, unspecified; I48.91 Unspecified atrial fibrillation; J45.909 Unspecified asthma, uncomplicated; M10.9 Gout, unspecified; Z90.49 Acquired absence of other specified parts of digestive tract; Z95.5 Presence of coronary angioplasty implant and graft; X58.XXXD Exposure to other specified factors, subsequent encounter ==

== ENCOUNTER → 2023-03-10 | Outpatient (CLI) | payer OTHER | END | disposition home or self-care (01) | LOC: WOUNDCARE 01:31 | PROVIDERS: ATTEND Nurse Practitioner Family | DX: L03.116 Cellulitis of left lower limb (principal); E11.622 Type 2 diabetes mellitus with other skin ulcer; I83.028 Varicose veins of left lower extremity with ulcer other part of lower leg; L97.822 Non-pressure chronic ulcer of other part of left lower leg with fat layer exposed; S81.802D Unspecified open wound, left lower leg, subsequent encounter; E11.69 Type 2 diabetes mellitus with other specified complication; M86.8X7 Other osteomyelitis, ankle and foot; I11.0 Hypertensive heart disease with heart failure; I50.9 Heart failure, unspecified; I25.10 Atherosclerotic heart disease of native coronary artery without angina pectoris; I48.91 Unspecified atrial fibrillation; E78.5 Hyperlipidemia, unspecified; J45.909 Unspecified asthma, uncomplicated; M10.9 Gout, unspecified; Z90.49 Acquired absence of other specified parts of digestive tract; Z95.5 Presence of coronary angioplasty implant and graft; X58.XXXD Exposure to other specified factors, subsequent encounter ==

== ENCOUNTER → 2023-03-23 | Outpatient (CLI) | payer OTHER ==
[2023-03-23 13:12] LABS: BASO % 0.4 % (0.0-1.0); EOS # 0.1 10*3/uL (0.0-0.4); HEMATOCRIT 47.9 % (42.0-52.0); LYMPH # 1.4 10*3/uL (1.3-4.4); LYMPH % 18.3 % (27.0-41.0); MEAN CELL VOLUME 87.9 fl (80.0-94.0); MEAN CORPUSCULAR HGB 29.9 pg (27.0-31.0); MONO # 0.6 10*3/uL (0.1-1.0); MONO % 8.3 % (3.0-9.0); NEUT # 5.3 10*3/uL (2.3-7.9); NEUT % 71.6 % (47.0-73.0); PLATELET COUNT AUTOMATED 188 10*3/uL (130-400); RED BLOOD COUNT 5.45 10*6/uL (4.50-5.90); RED CELL DISTRI WIDTH 13.8 % (0-14.5); WHITE BLOOD COUNT 7.4 10*3/uL (4.8-10.8)
[2023-03-23 13:45] LABS: URIC ACID 6.7 mg/dL (3.7-9.2)
[2023-03-23 13:50] LABS: ALKALINE PHOSPHATASE 131 U/L (46-116); BUN 18 mg/dl (9-23); CHLORIDE 100 mmol/L (98-107); CHOLESTEROL 108 mg/dL (<200); GAMMA GLUTAMYL TRANSPEPTIDASE 32 U/L (0-73); LDL CHOLESTEROL 34 mg/dL (9-159); POTASSIUM 4.2 mmol/L (3.4-5.1); SGPT/ALT 33 U/L (10-49); T3 UPTAKE 25.5 % (22.4-36.7); THYROID STIM HORMONE (HS) 1.634 uIU/ml (0.550-4.780); THYROXINE (T4) TOTAL 5.4 ug/dl (4.5-10.9); TOTAL PROTEIN 7.5 gm/dL (6.0-8.0); TRIGLYCERIDES 185 mg/dl (<150)
[2023-03-23 13:53] LABS: VITAMIN D, 25-HYDROXY 32.6 ng/mL (30-100)
[2023-03-23 17:57] LABS: BILIRUBIN Negative (Negative); BLOOD Negative (Negative); CLARITY Clear (Clear); COLOR Yellow (Yellow); GLUCOSE 3+ (Negative); KETONE Negative (Negative); LEUKO ESTERASE Negative (Negative); NITRITE Negative (Negative)
[2023-03-23 18:04] LABS: WBC 0-2 wbc/hpf (0-5)
[2023-03-23 18:05] LABS: MUCOUS 1+
== END | disposition home or self-care (01) ==
LOC: LAB 12:27
PROVIDERS: Internal Medicine Nephrology; ATTEND Family Medicine
DX: E11.22 Type 2 diabetes mellitus with diabetic chronic kidney disease (principal); N18.32 Chronic kidney disease, stage 3b; D63.1 Anemia in chronic kidney disease; N25.81 Secondary hyperparathyroidism of renal origin; M10.9 Gout, unspecified

== ENCOUNTER → 2023-03-24 | Outpatient (CLI) | payer OTHER | END | disposition home or self-care (01) | LOC: WOUNDCARE 01:27 | PROVIDERS: ATTEND Nurse Practitioner Family | DX: L03.116 Cellulitis of left lower limb (principal); E11.622 Type 2 diabetes mellitus with other skin ulcer; I83.028 Varicose veins of left lower extremity with ulcer other part of lower leg; L97.822 Non-pressure chronic ulcer of other part of left lower leg with fat layer exposed; S81.802D Unspecified open wound, left lower leg, subsequent encounter; E11.69 Type 2 diabetes mellitus with other specified complication; M86.8X7 Other osteomyelitis, ankle and foot; E78.5 Hyperlipidemia, unspecified; I11.0 Hypertensive heart disease with heart failure; I50.9 Heart failure, unspecified; I25.10 Atherosclerotic heart disease of native coronary artery without angina pectoris; I48.91 Unspecified atrial fibrillation; J45.909 Unspecified asthma, uncomplicated; M10.9 Gout, unspecified; Z90.49 Acquired absence of other specified parts of digestive tract; Z95.5 Presence of coronary angioplasty implant and graft; X58.XXXD Exposure to other specified factors, subsequent encounter ==

== ENCOUNTER → 2023-04-14 | Outpatient (CLI) | payer OTHER | END | disposition home or self-care (01) | LOC: WOUNDCARE 02:44 | PROVIDERS: ATTEND Nurse Practitioner Family | DX: L03.116 Cellulitis of left lower limb (principal); E11.622 Type 2 diabetes mellitus with other skin ulcer; I83.028 Varicose veins of left lower extremity with ulcer other part of lower leg; L97.822 Non-pressure chronic ulcer of other part of left lower leg with fat layer exposed; S81.802D Unspecified open wound, left lower leg, subsequent encounter; E11.69 Type 2 diabetes mellitus with other specified complication; M86.8X7 Other osteomyelitis, ankle and foot; I11.0 Hypertensive heart disease with heart failure; I50.9 Heart failure, unspecified; I25.10 Atherosclerotic heart disease of native coronary artery without angina pectoris; I48.91 Unspecified atrial fibrillation; J45.909 Unspecified asthma, uncomplicated; M10.9 Gout, unspecified; E78.5 Hyperlipidemia, unspecified; Z90.49 Acquired absence of other specified parts of digestive tract; Z95.5 Presence of coronary angioplasty implant and graft; X58.XXXD Exposure to other specified factors, subsequent encounter ==

== ENCOUNTER → 2023-04-27 | Outpatient (CLI) | payer OTHER | END | disposition home or self-care (01) | LOC: WOUNDCARE 00:47 | PROVIDERS: ATTEND Nurse Practitioner Family | DX: L03.116 Cellulitis of left lower limb (principal); S81.802D Unspecified open wound, left lower leg, subsequent encounter; E11.621 Type 2 diabetes mellitus with foot ulcer; L97.822 Non-pressure chronic ulcer of other part of left lower leg with fat layer exposed; I83.028 Varicose veins of left lower extremity with ulcer other part of lower leg; E11.69 Type 2 diabetes mellitus with other specified complication; M86.8X7 Other osteomyelitis, ankle and foot; I11.0 Hypertensive heart disease with heart failure; I50.9 Heart failure, unspecified; I25.10 Atherosclerotic heart disease of native coronary artery without angina pectoris; I48.91 Unspecified atrial fibrillation; E78.5 Hyperlipidemia, unspecified; J45.909 Unspecified asthma, uncomplicated; M10.9 Gout, unspecified; Z90.49 Acquired absence of other specified parts of digestive tract; Z95.5 Presence of coronary angioplasty implant and graft; X58.XXXD Exposure to other specified factors, subsequent encounter ==

== ENCOUNTER → 2023-05-11 | Outpatient (CLI) | payer OTHER | END | disposition home or self-care (01) | LOC: WOUNDCARE 00:29 | PROVIDERS: ATTEND Nurse Practitioner Family | DX: L03.116 Cellulitis of left lower limb (principal); E11.622 Type 2 diabetes mellitus with other skin ulcer; I83.028 Varicose veins of left lower extremity with ulcer other part of lower leg; L97.822 Non-pressure chronic ulcer of other part of left lower leg with fat layer exposed; S81.802D Unspecified open wound, left lower leg, subsequent encounter; E11.69 Type 2 diabetes mellitus with other specified complication; M86.8X7 Other osteomyelitis, ankle and foot; E78.5 Hyperlipidemia, unspecified; I11.0 Hypertensive heart disease with heart failure; I50.9 Heart failure, unspecified; I25.10 Atherosclerotic heart disease of native coronary artery without angina pectoris; I48.91 Unspecified atrial fibrillation; J45.909 Unspecified asthma, uncomplicated; M10.9 Gout, unspecified; Z90.49 Acquired absence of other specified parts of digestive tract; Z95.5 Presence of coronary angioplasty implant and graft; X58.XXXD Exposure to other specified factors, subsequent encounter ==

== ENCOUNTER → 2023-05-18 | Outpatient (CLI) | payer OTHER | END | disposition home or self-care (01) | LOC: CANPRECLI → RESCLI 00:56 | PROVIDERS: ATTEND Internal Medicine | DX: Z53.9 Procedure and treatment not carried out, unspecified reason (principal) ==

== ENCOUNTER → 2023-05-25 | Outpatient (CLI) | payer OTHER | END | disposition home or self-care (01) | LOC: WOUNDCARE 01:50 | PROVIDERS: ATTEND Nurse Practitioner Family | DX: E11.622 Type 2 diabetes mellitus with other skin ulcer (principal); I83.028 Varicose veins of left lower extremity with ulcer other part of lower leg; L97.822 Non-pressure chronic ulcer of other part of left lower leg with fat layer exposed; S81.802D Unspecified open wound, left lower leg, subsequent encounter; L03.116 Cellulitis of left lower limb; E11.69 Type 2 diabetes mellitus with other specified complication; M86.8X7 Other osteomyelitis, ankle and foot; I11.0 Hypertensive heart disease with heart failure; I50.9 Heart failure, unspecified; I25.10 Atherosclerotic heart disease of native coronary artery without angina pectoris; I48.91 Unspecified atrial fibrillation; J45.909 Unspecified asthma, uncomplicated; M10.9 Gout, unspecified; E78.5 Hyperlipidemia, unspecified; Z90.49 Acquired absence of other specified parts of digestive tract; Z95.5 Presence of coronary angioplasty implant and graft ==

== ENCOUNTER → 2023-06-01 | Outpatient (CLI) | payer OTHER | END | disposition home or self-care (01) | LOC: WOUNDCARE 02:13 | PROVIDERS: ATTEND Nurse Practitioner Family | DX: E11.622 Type 2 diabetes mellitus with other skin ulcer (principal); I83.028 Varicose veins of left lower extremity with ulcer other part of lower leg; L97.822 Non-pressure chronic ulcer of other part of left lower leg with fat layer exposed; S81.802D Unspecified open wound, left lower leg, subsequent encounter; E11.69 Type 2 diabetes mellitus with other specified complication; M86.8X7 Other osteomyelitis, ankle and foot; I11.0 Hypertensive heart disease with heart failure; I50.9 Heart failure, unspecified; I25.10 Atherosclerotic heart disease of native coronary artery without angina pectoris; I48.91 Unspecified atrial fibrillation; J45.909 Unspecified asthma, uncomplicated; M10.9 Gout, unspecified; E78.5 Hyperlipidemia, unspecified; Z90.49 Acquired absence of other specified parts of digestive tract; Z95.5 Presence of coronary angioplasty implant and graft; X58.XXXD Exposure to other specified factors, subsequent encounter ==

== ENCOUNTER → 2023-06-22 | Outpatient (CLI) | payer OTHER | END | disposition home or self-care (01) | LOC: WOUNDCARE 01:18 | PROVIDERS: ATTEND Nurse Practitioner Family | DX: E11.622 Type 2 diabetes mellitus with other skin ulcer (principal); I83.028 Varicose veins of left lower extremity with ulcer other part of lower leg; L97.822 Non-pressure chronic ulcer of other part of left lower leg with fat layer exposed; S81.802D Unspecified open wound, left lower leg, subsequent encounter; I11.0 Hypertensive heart disease with heart failure; I50.9 Heart failure, unspecified; I25.10 Atherosclerotic heart disease of native coronary artery without angina pectoris; E11.69 Type 2 diabetes mellitus with other specified complication; M86.8X7 Other osteomyelitis, ankle and foot; I48.91 Unspecified atrial fibrillation; E78.5 Hyperlipidemia, unspecified; J45.909 Unspecified asthma, uncomplicated; M10.9 Gout, unspecified; Z95.5 Presence of coronary angioplasty implant and graft; Z90.49 Acquired absence of other specified parts of digestive tract; X58.XXXD Exposure to other specified factors, subsequent encounter ==

== ENCOUNTER → 2023-07-06 | Outpatient (CLI) | payer OTHER | END | disposition home or self-care (01) | LOC: WOUNDCARE 01:12 | PROVIDERS: ATTEND Nurse Practitioner Family | DX: S81.802D Unspecified open wound, left lower leg, subsequent encounter (principal); E11.622 Type 2 diabetes mellitus with other skin ulcer; I83.028 Varicose veins of left lower extremity with ulcer other part of lower leg; L97.822 Non-pressure chronic ulcer of other part of left lower leg with fat layer exposed; L03.116 Cellulitis of left lower limb; E11.69 Type 2 diabetes mellitus with other specified complication; M86.8X7 Other osteomyelitis, ankle and foot; I11.0 Hypertensive heart disease with heart failure; I50.9 Heart failure, unspecified; I25.10 Atherosclerotic heart disease of native coronary artery without angina pectoris; I48.91 Unspecified atrial fibrillation; E78.5 Hyperlipidemia, unspecified; M10.9 Gout, unspecified; Z90.49 Acquired absence of other specified parts of digestive tract; Z95.5 Presence of coronary angioplasty implant and graft; X58.XXXD Exposure to other specified factors, subsequent encounter ==

== ENCOUNTER → 2023-07-20 | Outpatient (CLI) | payer OTHER | END | disposition home or self-care (01) | LOC: WOUNDCARE 00:39 | PROVIDERS: ATTEND Nurse Practitioner Family | DX: L03.116 Cellulitis of left lower limb (principal); E11.622 Type 2 diabetes mellitus with other skin ulcer; I83.028 Varicose veins of left lower extremity with ulcer other part of lower leg; L97.822 Non-pressure chronic ulcer of other part of left lower leg with fat layer exposed; S81.802D Unspecified open wound, left lower leg, subsequent encounter; E11.69 Type 2 diabetes mellitus with other specified complication; M86.8X7 Other osteomyelitis, ankle and foot; I11.0 Hypertensive heart disease with heart failure; I50.9 Heart failure, unspecified; I25.10 Atherosclerotic heart disease of native coronary artery without angina pectoris; I48.91 Unspecified atrial fibrillation; E78.5 Hyperlipidemia, unspecified; J45.909 Unspecified asthma, uncomplicated; M10.9 Gout, unspecified; Z90.49 Acquired absence of other specified parts of digestive tract; Z95.5 Presence of coronary angioplasty implant and graft; X58.XXXD Exposure to other specified factors, subsequent encounter ==

== ENCOUNTER → 2023-08-03 | Outpatient (CLI) | payer OTHER | END | disposition home or self-care (01) | LOC: WOUNDCARE 01:52 | PROVIDERS: ATTEND Nurse Practitioner Family | DX: L03.116 Cellulitis of left lower limb (principal); S81.802D Unspecified open wound, left lower leg, subsequent encounter; E11.622 Type 2 diabetes mellitus with other skin ulcer; I83.028 Varicose veins of left lower extremity with ulcer other part of lower leg; L97.822 Non-pressure chronic ulcer of other part of left lower leg with fat layer exposed; E11.69 Type 2 diabetes mellitus with other specified complication; M86.8X7 Other osteomyelitis, ankle and foot; E78.5 Hyperlipidemia, unspecified; I11.0 Hypertensive heart disease with heart failure; I50.9 Heart failure, unspecified; I25.10 Atherosclerotic heart disease of native coronary artery without angina pectoris; I48.91 Unspecified atrial fibrillation; J45.909 Unspecified asthma, uncomplicated; M10.9 Gout, unspecified; Z90.49 Acquired absence of other specified parts of digestive tract; Z95.5 Presence of coronary angioplasty implant and graft; X58.XXXD Exposure to other specified factors, subsequent encounter ==

== ENCOUNTER → 2023-08-17 | Outpatient (CLI) | payer OTHER | END | disposition home or self-care (01) | LOC: WOUNDCARE 03:06 | PROVIDERS: ATTEND Nurse Practitioner Family | DX: E11.622 Type 2 diabetes mellitus with other skin ulcer (principal); I83.028 Varicose veins of left lower extremity with ulcer other part of lower leg; L97.822 Non-pressure chronic ulcer of other part of left lower leg with fat layer exposed; I83.018 Varicose veins of right lower extremity with ulcer other part of lower leg; L97.812 Non-pressure chronic ulcer of other part of right lower leg with fat layer exposed; S81.802D Unspecified open wound, left lower leg, subsequent encounter; E11.69 Type 2 diabetes mellitus with other specified complication; M86.8X7 Other osteomyelitis, ankle and foot; I11.0 Hypertensive heart disease with heart failure; I50.9 Heart failure, unspecified; I25.10 Atherosclerotic heart disease of native coronary artery without angina pectoris; I48.91 Unspecified atrial fibrillation; J45.909 Unspecified asthma, uncomplicated; E78.5 Hyperlipidemia, unspecified; M10.9 Gout, unspecified; Z90.49 Acquired absence of other specified parts of digestive tract; Z95.5 Presence of coronary angioplasty implant and graft; X58.XXXD Exposure to other specified factors, subsequent encounter ==

== ENCOUNTER → 2023-08-24 | Outpatient (CLI) | payer OTHER | END | disposition home or self-care (01) | LOC: WOUNDCARE 02:19 | PROVIDERS: ATTEND Nurse Practitioner Family | DX: E11.622 Type 2 diabetes mellitus with other skin ulcer (principal); I83.028 Varicose veins of left lower extremity with ulcer other part of lower leg; L97.822 Non-pressure chronic ulcer of other part of left lower leg with fat layer exposed; I83.018 Varicose veins of right lower extremity with ulcer other part of lower leg; L97.812 Non-pressure chronic ulcer of other part of right lower leg with fat layer exposed; S81.802D Unspecified open wound, left lower leg, subsequent encounter; E11.69 Type 2 diabetes mellitus with other specified complication; M86.8X7 Other osteomyelitis, ankle and foot; I11.0 Hypertensive heart disease with heart failure; I50.9 Heart failure, unspecified; E78.5 Hyperlipidemia, unspecified; M10.9 Gout, unspecified; I48.91 Unspecified atrial fibrillation; I25.10 Atherosclerotic heart disease of native coronary artery without angina pectoris; J45.909 Unspecified asthma, uncomplicated; Z90.49 Acquired absence of other specified parts of digestive tract; Z95.5 Presence of coronary angioplasty implant and graft; X58.XXXD Exposure to other specified factors, subsequent encounter ==

== ENCOUNTER → 2023-08-31 | Outpatient (CLI) | payer OTHER ==
[2023-08-31 11:47] LABS: BASO % 0.6 % (0.0-1.0); EOS # 0.1 10*3/uL (0.0-0.4); EOS % 1.9 % (1.0-4.0); HEMATOCRIT 51.4 % (42.0-52.0); LYMPH # 1.6 10*3/uL (1.3-4.4); LYMPH % 22.9 % (27.0-41.0); MEAN CELL VOLUME 91.1 fl (80.0-94.0); MEAN CORPUSCULAR HGB 29.3 pg (27.0-31.0); MEAN CORPUSCULAR HGB CONC 32.1 g/dl (33.0-37.0); MEAN PLATELET VOLUME 10.2 fl (9.6-12.3); MONO # 0.6 10*3/uL (0.1-1.0); MONO % 8.5 % (3.0-9.0); NEUT # 4.5 10*3/uL (2.3-7.9); NEUT % 65.7 % (47.0-73.0); PLATELET COUNT AUTOMATED 198 10*3/uL (130-400); RED BLOOD COUNT 5.64 10*6/uL (4.50-5.90); RED CELL DISTRI WIDTH 13.7 % (0-14.5); RETICULOCYTE % 1.98 % (0.50-2.50); WHITE BLOOD COUNT 6.9 10*3/uL (4.8-10.8)
[2023-08-31 12:20] LABS: ALKALINE PHOSPHATASE 167 U/L (46-116); BUN 20 mg/dl (9-23); CHLORIDE 104 mmol/L (98-107); CHOLESTEROL 94 mg/dL (<200); GAMMA GLUTAMYL TRANSPEPTIDASE 29 U/L (0-73); LDL CHOLESTEROL 19 mg/dL (9-159); POTASSIUM 4.8 mmol/L (3.4-5.1); SGPT/ALT 27 U/L (5-49); T3 UPTAKE 27.6 % (22.4-36.7); THYROXINE (T4) TOTAL 6.5 ug/dl (4.5-10.9); TOTAL PROTEIN 7.5 gm/dL (6.0-8.0); TRIGLYCERIDES 183 mg/dl (<150); VITAMIN D, 25-HYDROXY 35.9 ng/mL (30-100)
[2023-08-31 17:32] LABS: BILIRUBIN Negative (Negative); BLOOD Negative (Negative); CLARITY Clear (Clear); COLOR Yellow (Yellow); GLUCOSE 3+ (Negative); KETONE Negative (Negative); LEUKO ESTERASE Negative (Negative); NITRITE Negative (Negative); SPECIFIC GRAVITY 1.025 (1.001-1.030)
[2023-08-31 17:42] LABS: BACTERIA 1+; RBC 0-2 rbc/hpf (0-2); YEAST TRACE
[2023-08-31 17:43] LABS: HYALINE CAST 0-2; MUCOUS TRACE
== END | disposition home or self-care (01) ==
LOC: WOUNDCARE 01:18 → LAB 02:44 → WOUNDCARE 02:44
PROVIDERS: Family Medicine; ATTEND Nurse Practitioner Family
DX: E11.622 Type 2 diabetes mellitus with other skin ulcer (principal); I83.028 Varicose veins of left lower extremity with ulcer other part of lower leg; L97.822 Non-pressure chronic ulcer of other part of left lower leg with fat layer exposed; I83.018 Varicose veins of right lower extremity with ulcer other part of lower leg; L97.812 Non-pressure chronic ulcer of other part of right lower leg with fat layer exposed; S81.802D Unspecified open wound, left lower leg, subsequent encounter; R79.89 Other specified abnormal findings of blood chemistry; E78.5 Hyperlipidemia, unspecified; R74.8 Abnormal levels of other serum enzymes; E55.9 Vitamin D deficiency, unspecified; I11.0 Hypertensive heart disease with heart failure; I50.9 Heart failure, unspecified; I25.10 Atherosclerotic heart disease of native coronary artery without angina pectoris; E11.69 Type 2 diabetes mellitus with other specified complication; M86.8X7 Other osteomyelitis, ankle and foot; I48.91 Unspecified atrial fibrillation; J45.909 Unspecified asthma, uncomplicated; M10.9 Gout, unspecified; Z90.49 Acquired absence of other specified parts of digestive tract; Z95.5 Presence of coronary angioplasty implant and graft; X58.XXXD Exposure to other specified factors, subsequent encounter

== ENCOUNTER → 2023-09-14 | Outpatient (CLI) | payer OTHER | END | disposition home or self-care (01) | LOC: WOUNDCARE 01:24 | PROVIDERS: ATTEND Nurse Practitioner Family | DX: E11.622 Type 2 diabetes mellitus with other skin ulcer (principal); I83.028 Varicose veins of left lower extremity with ulcer other part of lower leg; L97.822 Non-pressure chronic ulcer of other part of left lower leg with fat layer exposed; I83.018 Varicose veins of right lower extremity with ulcer other part of lower leg; L97.812 Non-pressure chronic ulcer of other part of right lower leg with fat layer exposed; S81.802D Unspecified open wound, left lower leg, subsequent encounter; E11.69 Type 2 diabetes mellitus with other specified complication; M86.8X7 Other osteomyelitis, ankle and foot; I25.10 Atherosclerotic heart disease of native coronary artery without angina pectoris; I48.91 Unspecified atrial fibrillation; M10.9 Gout, unspecified; E78.5 Hyperlipidemia, unspecified; I11.0 Hypertensive heart disease with heart failure; I50.9 Heart failure, unspecified; J45.909 Unspecified asthma, uncomplicated; Z90.49 Acquired absence of other specified parts of digestive tract; Z95.5 Presence of coronary angioplasty implant and graft; X58.XXXD Exposure to other specified factors, subsequent encounter ==

== ENCOUNTER → 2023-09-28 | Outpatient (CLI) | payer OTHER | END | disposition home or self-care (01) | LOC: WOUNDCARE 01:25 | PROVIDERS: ATTEND Nurse Practitioner Family | DX: E11.622 Type 2 diabetes mellitus with other skin ulcer (principal); I83.028 Varicose veins of left lower extremity with ulcer other part of lower leg; L97.822 Non-pressure chronic ulcer of other part of left lower leg with fat layer exposed; I83.018 Varicose veins of right lower extremity with ulcer other part of lower leg; L97.812 Non-pressure chronic ulcer of other part of right lower leg with fat layer exposed; E11.621 Type 2 diabetes mellitus with foot ulcer; I83.015 Varicose veins of right lower extremity with ulcer other part of foot; L97.511 Non-pressure chronic ulcer of other part of right foot limited to breakdown of skin; S81.802D Unspecified open wound, left lower leg, subsequent encounter; I25.10 Atherosclerotic heart disease of native coronary artery without angina pectoris; E11.69 Type 2 diabetes mellitus with other specified complication; M86.8X7 Other osteomyelitis, ankle and foot; I48.91 Unspecified atrial fibrillation; E78.5 Hyperlipidemia, unspecified; I11.0 Hypertensive heart disease with heart failure; I50.9 Heart failure, unspecified; M10.9 Gout, unspecified; J45.909 Unspecified asthma, uncomplicated; Z90.49 Acquired absence of other specified parts of digestive tract; Z95.5 Presence of coronary angioplasty implant and graft; X58.XXXD Exposure to other specified factors, subsequent encounter ==

== ENCOUNTER → 2023-10-06 | Outpatient (CLI) | payer OTHER | END | disposition home or self-care (01) | LOC: WOUNDCARE 01:07 | PROVIDERS: ATTEND Nurse Practitioner Family | DX: E11.622 Type 2 diabetes mellitus with other skin ulcer (principal); I83.028 Varicose veins of left lower extremity with ulcer other part of lower leg; L97.822 Non-pressure chronic ulcer of other part of left lower leg with fat layer exposed; I83.018 Varicose veins of right lower extremity with ulcer other part of lower leg; L97.812 Non-pressure chronic ulcer of other part of right lower leg with fat layer exposed; E11.621 Type 2 diabetes mellitus with foot ulcer; I83.015 Varicose veins of right lower extremity with ulcer other part of foot; L97.512 Non-pressure chronic ulcer of other part of right foot with fat layer exposed; E11.69 Type 2 diabetes mellitus with other specified complication; M86.8X7 Other osteomyelitis, ankle and foot; E78.5 Hyperlipidemia, unspecified; I11.0 Hypertensive heart disease with heart failure; I50.9 Heart failure, unspecified; I25.10 Atherosclerotic heart disease of native coronary artery without angina pectoris; I48.91 Unspecified atrial fibrillation; J45.909 Unspecified asthma, uncomplicated; M10.9 Gout, unspecified; Z90.49 Acquired absence of other specified parts of digestive tract; Z95.5 Presence of coronary angioplasty implant and graft ==

== ENCOUNTER → 2023-10-19 | Outpatient (CLI) | payer OTHER | END | disposition home or self-care (01) | LOC: WOUNDCARE 01:34 | PROVIDERS: ATTEND Nurse Practitioner Family | DX: E11.622 Type 2 diabetes mellitus with other skin ulcer (principal); I83.028 Varicose veins of left lower extremity with ulcer other part of lower leg; L97.822 Non-pressure chronic ulcer of other part of left lower leg with fat layer exposed; I83.018 Varicose veins of right lower extremity with ulcer other part of lower leg; L97.812 Non-pressure chronic ulcer of other part of right lower leg with fat layer exposed; E11.621 Type 2 diabetes mellitus with foot ulcer; I83.015 Varicose veins of right lower extremity with ulcer other part of foot; L97.511 Non-pressure chronic ulcer of other part of right foot limited to breakdown of skin; S81.802D Unspecified open wound, left lower leg, subsequent encounter; I11.0 Hypertensive heart disease with heart failure; I50.9 Heart failure, unspecified; I25.10 Atherosclerotic heart disease of native coronary artery without angina pectoris; E11.69 Type 2 diabetes mellitus with other specified complication; M86.8X7 Other osteomyelitis, ankle and foot; I48.91 Unspecified atrial fibrillation; J45.909 Unspecified asthma, uncomplicated; M10.9 Gout, unspecified; E78.5 Hyperlipidemia, unspecified; Z95.5 Presence of coronary angioplasty implant and graft; Z90.49 Acquired absence of other specified parts of digestive tract; X58.XXXD Exposure to other specified factors, subsequent encounter ==

== ENCOUNTER → 2023-11-09 | Outpatient (CLI) | payer OTHER ==
[~2023-11-09] MED LIST changes: +AMOXICILLIN500 M3 PO
== END | disposition home or self-care (01) ==
LOC: WOUNDCARE 10-27 03:51
PROVIDERS: ATTEND Nurse Practitioner Family
DX: E11.622 Type 2 diabetes mellitus with other skin ulcer (principal); I83.018 Varicose veins of right lower extremity with ulcer other part of lower leg; L97.812 Non-pressure chronic ulcer of other part of right lower leg with fat layer exposed; I83.028 Varicose veins of left lower extremity with ulcer other part of lower leg; L97.822 Non-pressure chronic ulcer of other part of left lower leg with fat layer exposed; E11.621 Type 2 diabetes mellitus with foot ulcer; I83.015 Varicose veins of right lower extremity with ulcer other part of foot; L97.512 Non-pressure chronic ulcer of other part of right foot with fat layer exposed; S71.101D Unspecified open wound, right thigh, subsequent encounter; S81.802D Unspecified open wound, left lower leg, subsequent encounter; L03.90 Cellulitis, unspecified; L84 Corns and callosities; E11.69 Type 2 diabetes mellitus with other specified complication; M86.672 Other chronic osteomyelitis, left ankle and foot; A49.1 Streptococcal infection, unspecified site; I25.10 Atherosclerotic heart disease of native coronary artery without angina pectoris; I48.91 Unspecified atrial fibrillation; I11.0 Hypertensive heart disease with heart failure; I50.9 Heart failure, unspecified; J45.909 Unspecified asthma, uncomplicated; M10.9 Gout, unspecified; Z90.49 Acquired absence of other specified parts of digestive tract; Z95.818 Presence of other cardiac implants and grafts; Z79.4 Long term (current) use of insulin; X58.XXXD Exposure to other specified factors, subsequent encounter

== ENCOUNTER → 2023-11-23 | Outpatient (CLI) | payer OTHER | END | disposition home or self-care (01) | LOC: WOUNDCARE 01:39 | PROVIDERS: ATTEND Nurse Practitioner Family | DX: E11.621 Type 2 diabetes mellitus with foot ulcer (principal); I83.015 Varicose veins of right lower extremity with ulcer other part of foot; L97.511 Non-pressure chronic ulcer of other part of right foot limited to breakdown of skin; E11.622 Type 2 diabetes mellitus with other skin ulcer; I83.028 Varicose veins of left lower extremity with ulcer other part of lower leg; L97.822 Non-pressure chronic ulcer of other part of left lower leg with fat layer exposed; L84 Corns and callosities; S71.101D Unspecified open wound, right thigh, subsequent encounter; S81.802D Unspecified open wound, left lower leg, subsequent encounter; L03.90 Cellulitis, unspecified; I11.0 Hypertensive heart disease with heart failure; I50.9 Heart failure, unspecified; A49.1 Streptococcal infection, unspecified site; I25.10 Atherosclerotic heart disease of native coronary artery without angina pectoris; E11.69 Type 2 diabetes mellitus with other specified complication; M86.572 Other chronic hematogenous osteomyelitis, left ankle and foot; I48.91 Unspecified atrial fibrillation; J45.909 Unspecified asthma, uncomplicated; M10.9 Gout, unspecified; Z95.818 Presence of other cardiac implants and grafts; Z90.49 Acquired absence of other specified parts of digestive tract; Z79.4 Long term (current) use of insulin; X58.XXXD Exposure to other specified factors, subsequent encounter ==

== ENCOUNTER → 2023-11-29 | Outpatient (CLI) | payer OTHER | END | disposition home or self-care (01) | LOC: WOUNDCARE 11-04 03:32 | PROVIDERS: ATTEND Nurse Practitioner Family | DX: E11.621 Type 2 diabetes mellitus with foot ulcer (principal); I83.015 Varicose veins of right lower extremity with ulcer other part of foot; L97.512 Non-pressure chronic ulcer of other part of right foot with fat layer exposed; E11.622 Type 2 diabetes mellitus with other skin ulcer; I83.028 Varicose veins of left lower extremity with ulcer other part of lower leg; L97.822 Non-pressure chronic ulcer of other part of left lower leg with fat layer exposed; S71.101D Unspecified open wound, right thigh, subsequent encounter; S81.802D Unspecified open wound, left lower leg, subsequent encounter; B35.1 Tinea unguium; L60.0 Ingrowing nail; L84 Corns and callosities; L03.90 Cellulitis, unspecified; A48.1 Legionnaires' disease; I25.10 Atherosclerotic heart disease of native coronary artery without angina pectoris; E11.69 Type 2 diabetes mellitus with other specified complication; M86.672 Other chronic osteomyelitis, left ankle and foot; I48.91 Unspecified atrial fibrillation; I50.9 Heart failure, unspecified; I11.0 Hypertensive heart disease with heart failure; Z95.818 Presence of other cardiac implants and grafts; Z90.49 Acquired absence of other specified parts of digestive tract; Z79.4 Long term (current) use of insulin; X58.XXXD Exposure to other specified factors, subsequent encounter ==

== ENCOUNTER → 2023-12-06 | Outpatient (CLI) | payer OTHER | END | disposition home or self-care (01) | LOC: WOUNDCARE 04:49 | PROVIDERS: ATTEND Nurse Practitioner Family | DX: I83.028 Varicose veins of left lower extremity with ulcer other part of lower leg (principal); E11.622 Type 2 diabetes mellitus with other skin ulcer; L97.822 Non-pressure chronic ulcer of other part of left lower leg with fat layer exposed; I83.015 Varicose veins of right lower extremity with ulcer other part of foot; E11.621 Type 2 diabetes mellitus with foot ulcer; L97.512 Non-pressure chronic ulcer of other part of right foot with fat layer exposed; B35.1 Tinea unguium; L60.0 Ingrowing nail; S71.101D Unspecified open wound, right thigh, subsequent encounter; S81.802D Unspecified open wound, left lower leg, subsequent encounter; L84 Corns and callosities; I25.10 Atherosclerotic heart disease of native coronary artery without angina pectoris; E11.69 Type 2 diabetes mellitus with other specified complication; M86.672 Other chronic osteomyelitis, left ankle and foot; I48.91 Unspecified atrial fibrillation; M10.9 Gout, unspecified; E78.5 Hyperlipidemia, unspecified; I11.0 Hypertensive heart disease with heart failure; I50.9 Heart failure, unspecified; Z95.818 Presence of other cardiac implants and grafts; Z90.49 Acquired absence of other specified parts of digestive tract; Z79.4 Long term (current) use of insulin; X58.XXXD Exposure to other specified factors, subsequent encounter ==

== ENCOUNTER → 2023-12-08 | Outpatient (CLI) | payer OTHER | END | disposition home or self-care (01) | LOC: WOUNDCARE 01:13 | PROVIDERS: ATTEND Nurse Practitioner Family | DX: E11.622 Type 2 diabetes mellitus with other skin ulcer (principal); I83.028 Varicose veins of left lower extremity with ulcer other part of lower leg; L97.822 Non-pressure chronic ulcer of other part of left lower leg with fat layer exposed; E11.621 Type 2 diabetes mellitus with foot ulcer; I83.015 Varicose veins of right lower extremity with ulcer other part of foot; L97.511 Non-pressure chronic ulcer of other part of right foot limited to breakdown of skin; S91.102A Unspecified open wound of left great toe without damage to nail, initial encounter; S81.802D Unspecified open wound, left lower leg, subsequent encounter; B35.1 Tinea unguium; L60.0 Ingrowing nail; E11.69 Type 2 diabetes mellitus with other specified complication; M86.8X7 Other osteomyelitis, ankle and foot; I25.10 Atherosclerotic heart disease of native coronary artery without angina pectoris; I11.0 Hypertensive heart disease with heart failure; I50.9 Heart failure, unspecified; I48.91 Unspecified atrial fibrillation; M10.9 Gout, unspecified; E78.5 Hyperlipidemia, unspecified; Z90.49 Acquired absence of other specified parts of digestive tract; Z95.5 Presence of coronary angioplasty implant and graft; X58.XXXD Exposure to other specified factors, subsequent encounter; X58.XXXA Exposure to other specified factors, initial encounter; Y93.89 Activity, other specified; Y92.89 Other specified places as the place of occurrence of the external cause; Y99.8 Other external cause status ==

== ENCOUNTER → 2023-12-14 | Outpatient (CLI) | payer OTHER | LOC: WOUNDCARE 01:18 | PROVIDERS: ATTEND Nurse Practitioner Family | DX: E11.621 Type 2 diabetes mellitus with foot ulcer (principal); I83.015 Varicose veins of right lower extremity with ulcer other part of foot; L97.511 Non-pressure chronic ulcer of other part of right foot limited to breakdown of skin; E11.622 Type 2 diabetes mellitus with other skin ulcer; I83.028 Varicose veins of left lower extremity with ulcer other part of lower leg; L97.822 Non-pressure chronic ulcer of other part of left lower leg with fat layer exposed; L60.0 Ingrowing nail; L84 Corns and callosities; B35.1 Tinea unguium; S71.101D Unspecified open wound, right thigh, subsequent encounter; S81.802D Unspecified open wound, left lower leg, subsequent encounter; S91.102D Unspecified open wound of left great toe without damage to nail, subsequent encounter; I25.10 Atherosclerotic heart disease of native coronary artery without angina pectoris; E11.69 Type 2 diabetes mellitus with other specified complication; M86.672 Other chronic osteomyelitis, left ankle and foot; I48.91 Unspecified atrial fibrillation; J45.909 Unspecified asthma, uncomplicated; M10.9 Gout, unspecified; E78.5 Hyperlipidemia, unspecified; I11.0 Hypertensive heart disease with heart failure; I50.9 Heart failure, unspecified; Z90.49 Acquired absence of other specified parts of digestive tract; Z95.818 Presence of other cardiac implants and grafts; Z79.4 Long term (current) use of insulin; X58.XXXD Exposure to other specified factors, subsequent encounter ==

== ENCOUNTER → 2023-12-21 | Outpatient (CLI) | payer OTHER | LOC: WOUNDCARE 03:03 | PROVIDERS: ATTEND Nurse Practitioner Family | DX: E11.621 Type 2 diabetes mellitus with foot ulcer (principal); I83.015 Varicose veins of right lower extremity with ulcer other part of foot; L97.512 Non-pressure chronic ulcer of other part of right foot with fat layer exposed; E11.622 Type 2 diabetes mellitus with other skin ulcer; I83.028 Varicose veins of left lower extremity with ulcer other part of lower leg; L97.822 Non-pressure chronic ulcer of other part of left lower leg with fat layer exposed; S81.802D Unspecified open wound, left lower leg, subsequent encounter; S71.101D Unspecified open wound, right thigh, subsequent encounter; S91.102D Unspecified open wound of left great toe without damage to nail, subsequent encounter; B35.1 Tinea unguium; L60.0 Ingrowing nail; L84 Corns and callosities; I11.0 Hypertensive heart disease with heart failure; I50.9 Heart failure, unspecified; E78.5 Hyperlipidemia, unspecified; E11.69 Type 2 diabetes mellitus with other specified complication; M86.672 Other chronic osteomyelitis, left ankle and foot; M10.9 Gout, unspecified; J45.909 Unspecified asthma, uncomplicated; I48.91 Unspecified atrial fibrillation; I25.10 Atherosclerotic heart disease of native coronary artery without angina pectoris; Z95.818 Presence of other cardiac implants and grafts; Z79.4 Long term (current) use of insulin; Z90.49 Acquired absence of other specified parts of digestive tract; X58.XXXD Exposure to other specified factors, subsequent encounter ==

== ENCOUNTER → 2023-12-28 | Outpatient (CLI) | payer OTHER | END | disposition home or self-care (01) | LOC: WOUNDCARE 02:53 | PROVIDERS: ATTEND Nurse Practitioner Family | DX: E11.622 Type 2 diabetes mellitus with other skin ulcer (principal); I83.028 Varicose veins of left lower extremity with ulcer other part of lower leg; L97.822 Non-pressure chronic ulcer of other part of left lower leg with fat layer exposed; E11.621 Type 2 diabetes mellitus with foot ulcer; I83.015 Varicose veins of right lower extremity with ulcer other part of foot; L97.511 Non-pressure chronic ulcer of other part of right foot limited to breakdown of skin; S71.101D Unspecified open wound, right thigh, subsequent encounter; S81.802D Unspecified open wound, left lower leg, subsequent encounter; L84 Corns and callosities; L60.0 Ingrowing nail; B35.1 Tinea unguium; E11.69 Type 2 diabetes mellitus with other specified complication; M86.8X7 Other osteomyelitis, ankle and foot; I48.91 Unspecified atrial fibrillation; I25.10 Atherosclerotic heart disease of native coronary artery without angina pectoris; E78.5 Hyperlipidemia, unspecified; I11.0 Hypertensive heart disease with heart failure; I50.9 Heart failure, unspecified; J45.909 Unspecified asthma, uncomplicated; M10.9 Gout, unspecified; Z90.49 Acquired absence of other specified parts of digestive tract; Z95.5 Presence of coronary angioplasty implant and graft; X58.XXXD Exposure to other specified factors, subsequent encounter ==

== ENCOUNTER → 2024-01-04 | Outpatient (CLI) | payer OTHER | END | disposition home or self-care (01) | LOC: WOUNDCARE 02:18 | PROVIDERS: ATTEND Nurse Practitioner Family | DX: E11.622 Type 2 diabetes mellitus with other skin ulcer (principal); I83.028 Varicose veins of left lower extremity with ulcer other part of lower leg; L97.822 Non-pressure chronic ulcer of other part of left lower leg with fat layer exposed; S71.101D Unspecified open wound, right thigh, subsequent encounter; S81.802D Unspecified open wound, left lower leg, subsequent encounter; L60.0 Ingrowing nail; B35.1 Tinea unguium; E11.69 Type 2 diabetes mellitus with other specified complication; M86.8X7 Other osteomyelitis, ankle and foot; J45.909 Unspecified asthma, uncomplicated; I25.10 Atherosclerotic heart disease of native coronary artery without angina pectoris; I48.91 Unspecified atrial fibrillation; I11.0 Hypertensive heart disease with heart failure; I50.9 Heart failure, unspecified; E78.5 Hyperlipidemia, unspecified; M10.9 Gout, unspecified; Z90.49 Acquired absence of other specified parts of digestive tract; Z95.5 Presence of coronary angioplasty implant and graft; X58.XXXD Exposure to other specified factors, subsequent encounter ==

== ENCOUNTER → 2024-02-28 | Outpatient (CLI) | payer OTHER | END | disposition home or self-care (01) | LOC: WOUNDCARE 01:34 | PROVIDERS: ATTEND Nurse Practitioner Family | DX: I83.018 Varicose veins of right lower extremity with ulcer other part of lower leg (principal); E11.622 Type 2 diabetes mellitus with other skin ulcer; L97.812 Non-pressure chronic ulcer of other part of right lower leg with fat layer exposed; L03.116 Cellulitis of left lower limb; E11.69 Type 2 diabetes mellitus with other specified complication; M86.8X7 Other osteomyelitis, ankle and foot; I11.0 Hypertensive heart disease with heart failure; I50.30 Unspecified diastolic (congestive) heart failure; I25.10 Atherosclerotic heart disease of native coronary artery without angina pectoris; I48.91 Unspecified atrial fibrillation; E78.5 Hyperlipidemia, unspecified; J45.909 Unspecified asthma, uncomplicated; M10.9 Gout, unspecified; Z90.49 Acquired absence of other specified parts of digestive tract; Z95.818 Presence of other cardiac implants and grafts; Z79.899 Other long term (current) drug therapy ==

== ENCOUNTER → 2024-03-07 | Outpatient (CLI) | payer OTHER ==
[~2024-03-07] MED LIST changes: +BUMETANIDE1 MG PO
== END | disposition home or self-care (01) ==
LOC: WOUNDCARE 03:14
PROVIDERS: ATTEND Nurse Practitioner Family
DX: I83.018 Varicose veins of right lower extremity with ulcer other part of lower leg (principal); E11.622 Type 2 diabetes mellitus with other skin ulcer; L97.812 Non-pressure chronic ulcer of other part of right lower leg with fat layer exposed; E11.69 Type 2 diabetes mellitus with other specified complication; M86.8X7 Other osteomyelitis, ankle and foot; I11.0 Hypertensive heart disease with heart failure; I50.30 Unspecified diastolic (congestive) heart failure; I25.10 Atherosclerotic heart disease of native coronary artery without angina pectoris; I87.2 Venous insufficiency (chronic) (peripheral); I48.91 Unspecified atrial fibrillation; E78.5 Hyperlipidemia, unspecified; J45.909 Unspecified asthma, uncomplicated; M10.9 Gout, unspecified; Z90.49 Acquired absence of other specified parts of digestive tract; Z95.818 Presence of other cardiac implants and grafts; Z79.899 Other long term (current) drug therapy

== ENCOUNTER → 2024-03-29 | Outpatient (CLI) | payer OTHER | END | disposition home or self-care (01) | LOC: WOUNDCARE 02:05 | PROVIDERS: ATTEND Nurse Practitioner Family | DX: E11.622 Type 2 diabetes mellitus with other skin ulcer (principal); I83.018 Varicose veins of right lower extremity with ulcer other part of lower leg; L97.812 Non-pressure chronic ulcer of other part of right lower leg with fat layer exposed; I83.028 Varicose veins of left lower extremity with ulcer other part of lower leg; L97.822 Non-pressure chronic ulcer of other part of left lower leg with fat layer exposed; L89.890 Pressure ulcer of other site, unstageable; E11.69 Type 2 diabetes mellitus with other specified complication; M86.8X7 Other osteomyelitis, ankle and foot; I11.0 Hypertensive heart disease with heart failure; I50.30 Unspecified diastolic (congestive) heart failure; I87.2 Venous insufficiency (chronic) (peripheral); I25.10 Atherosclerotic heart disease of native coronary artery without angina pectoris; I48.91 Unspecified atrial fibrillation; J45.909 Unspecified asthma, uncomplicated; M10.9 Gout, unspecified; E78.5 Hyperlipidemia, unspecified; Z90.49 Acquired absence of other specified parts of digestive tract; Z95.818 Presence of other cardiac implants and grafts; Z79.4 Long term (current) use of insulin; Z79.899 Other long term (current) drug therapy ==

== ENCOUNTER → 2024-04-05 | Outpatient (CLI) | payer OTHER | END | disposition home or self-care (01) | LOC: WOUNDCARE 02:03 | PROVIDERS: ATTEND Nurse Practitioner Family | DX: E11.622 Type 2 diabetes mellitus with other skin ulcer (principal); I83.018 Varicose veins of right lower extremity with ulcer other part of lower leg; L97.812 Non-pressure chronic ulcer of other part of right lower leg with fat layer exposed; I83.028 Varicose veins of left lower extremity with ulcer other part of lower leg; L97.822 Non-pressure chronic ulcer of other part of left lower leg with fat layer exposed; L89.890 Pressure ulcer of other site, unstageable; E11.69 Type 2 diabetes mellitus with other specified complication; M86.8X7 Other osteomyelitis, ankle and foot; I11.0 Hypertensive heart disease with heart failure; I50.30 Unspecified diastolic (congestive) heart failure; I25.10 Atherosclerotic heart disease of native coronary artery without angina pectoris; I87.2 Venous insufficiency (chronic) (peripheral); I48.91 Unspecified atrial fibrillation; J45.909 Unspecified asthma, uncomplicated; M10.9 Gout, unspecified; E78.5 Hyperlipidemia, unspecified; Z90.49 Acquired absence of other specified parts of digestive tract; Z95.818 Presence of other cardiac implants and grafts; Z79.4 Long term (current) use of insulin; Z79.899 Other long term (current) drug therapy ==

== ENCOUNTER → 2024-08-03 | Outpatient (CLI) | payer OTHER ==
[2024-08-03 15:14] LABS: BASO % 0.5 % (0.0-1.0); EOS # 0.2 10*3/uL (0.0-0.4); EOS % 3.2 % (1.0-4.0); HEMATOCRIT 46.7 % (42.0-52.0); LYMPH # 1.2 10*3/uL (1.3-4.4); LYMPH % 19.1 % (27.0-41.0); MEAN CELL VOLUME 95.3 fl (80.0-94.0); MEAN CORPUSCULAR HGB 29.2 pg (27.0-31.0); MEAN CORPUSCULAR HGB CONC 30.6 g/dl (33.0-37.0); MEAN PLATELET VOLUME 9.9 fl (9.6-12.3); MONO # 0.6 10*3/uL (0.1-1.0); MONO % 9.4 % (3.0-9.0); NEUT # 4.4 10*3/uL (2.3-7.9); NEUT % 67.5 % (47.0-73.0); PLATELET COUNT AUTOMATED 204 10*3/uL (130-400); RED CELL DISTRI WIDTH 14.9 % (0-14.5); RETICULOCYTE % 2.18 % (0.50-2.50); WHITE BLOOD COUNT 6.5 10*3/uL (4.8-10.8)
[2024-08-03 15:15] LABS: BILIRUBIN Negative (Negative); BLOOD Negative (Negative); CLARITY Clear (Clear); COLOR Yellow (Yellow); GLUCOSE Negative (Negative); KETONE Negative (Negative); LEUKO ESTERASE Negative (Negative); NITRITE Negative (Negative); SPECIFIC GRAVITY 1.015 (1.001-1.030)
[2024-08-03 15:39] LABS: POTASSIUM 4.7 mmol/L (3.4-5.1); T3 UPTAKE 32.8 % (22.4-36.7); TOTAL PROTEIN 7.6 gm/dL (6.0-8.0)
== END | disposition home or self-care (01) ==
LOC: LAB 14:43
PROVIDERS: ATTEND Family Medicine
DX: Z12.5 Encounter for screening for malignant neoplasm of prostate (principal); R79.89 Other specified abnormal findings of blood chemistry; R53.83 Other fatigue; E78.5 Hyperlipidemia, unspecified; E11.9 Type 2 diabetes mellitus without complications; E55.9 Vitamin D deficiency, unspecified

== ENCOUNTER → 2024-08-06 | Outpatient (CLI) | payer OTHER ==
[~2024-08-06] MED LIST changes: +IOHEXOL 300 MG/ML 100 ML VIAL IV ONE; +IOHEXOL 300 MG/ML 100 ML VIAL ONE
== END | disposition home or self-care (01) ==
LOC: CT 07-26 08:00
PROVIDERS: ATTEND Family Medicine
DX: J43.9 Emphysema, unspecified (principal); I25.10 Atherosclerotic heart disease of native coronary artery without angina pectoris; R59.0 Localized enlarged lymph nodes; R91.8 Other nonspecific abnormal finding of lung field

== ENCOUNTER → 2024-08-08 | Outpatient (CLI) | payer OTHER ==
[~2024-08-08] MED LIST changes: -IOHEXOL 300 MG/ML 100 ML VIAL IV ONE; -IOHEXOL 300 MG/ML 100 ML VIAL ONE
== END | disposition home or self-care (01) ==
LOC: WOUNDCARE 01:38
PROVIDERS: ATTEND Nurse Practitioner Family
DX: S80.822A Blister (nonthermal), left lower leg, initial encounter (principal); S80.821A Blister (nonthermal), right lower leg, initial encounter; E11.69 Type 2 diabetes mellitus with other specified complication; M86.8X7 Other osteomyelitis, ankle and foot; I11.0 Hypertensive heart disease with heart failure; I50.30 Unspecified diastolic (congestive) heart failure; I25.10 Atherosclerotic heart disease of native coronary artery without angina pectoris; I48.91 Unspecified atrial fibrillation; I86.8 Varicose veins of other specified sites; I87.8 Other specified disorders of veins; B35.1 Tinea unguium; L60.2 Onychogryphosis; J45.909 Unspecified asthma, uncomplicated; M10.9 Gout, unspecified; E78.5 Hyperlipidemia, unspecified; Z90.49 Acquired absence of other specified parts of digestive tract; Z95.818 Presence of other cardiac implants and grafts; Z79.4 Long term (current) use of insulin; Z79.899 Other long term (current) drug therapy; X58.XXXA Exposure to other specified factors, initial encounter; Y93.89 Activity, other specified; Y92.89 Other specified places as the place of occurrence of the external cause; Y99.8 Other external cause status

== ENCOUNTER → 2024-08-15 | Outpatient (CLI) | payer OTHER | END | disposition home or self-care (01) | LOC: WOUNDCARE 02:37 | PROVIDERS: ATTEND Nurse Practitioner Family | DX: S80.822D Blister (nonthermal), left lower leg, subsequent encounter (principal); S80.821D Blister (nonthermal), right lower leg, subsequent encounter; I86.8 Varicose veins of other specified sites; L60.2 Onychogryphosis; I87.2 Venous insufficiency (chronic) (peripheral); B35.1 Tinea unguium; I11.0 Hypertensive heart disease with heart failure; I50.9 Heart failure, unspecified; I25.10 Atherosclerotic heart disease of native coronary artery without angina pectoris; E11.69 Type 2 diabetes mellitus with other specified complication; M86.8X7 Other osteomyelitis, ankle and foot; I48.91 Unspecified atrial fibrillation; J45.909 Unspecified asthma, uncomplicated; M10.9 Gout, unspecified; E78.5 Hyperlipidemia, unspecified; Z90.49 Acquired absence of other specified parts of digestive tract; Z95.5 Presence of coronary angioplasty implant and graft; X58.XXXD Exposure to other specified factors, subsequent encounter ==

== ENCOUNTER → 2024-08-22 | Outpatient (CLI) | payer OTHER | END | disposition home or self-care (01) | LOC: WOUNDCARE 02:23 | PROVIDERS: ATTEND Nurse Practitioner Family | DX: S80.822D Blister (nonthermal), left lower leg, subsequent encounter (principal); S80.821D Blister (nonthermal), right lower leg, subsequent encounter; E11.69 Type 2 diabetes mellitus with other specified complication; M86.8X7 Other osteomyelitis, ankle and foot; I11.0 Hypertensive heart disease with heart failure; I50.30 Unspecified diastolic (congestive) heart failure; I48.91 Unspecified atrial fibrillation; I25.10 Atherosclerotic heart disease of native coronary artery without angina pectoris; I86.8 Varicose veins of other specified sites; I87.8 Other specified disorders of veins; B35.1 Tinea unguium; L60.2 Onychogryphosis; J45.909 Unspecified asthma, uncomplicated; M10.9 Gout, unspecified; E78.5 Hyperlipidemia, unspecified; Z90.49 Acquired absence of other specified parts of digestive tract; Z95.818 Presence of other cardiac implants and grafts; Z79.4 Long term (current) use of insulin; Z79.899 Other long term (current) drug therapy; X58.XXXD Exposure to other specified factors, subsequent encounter ==

== ENCOUNTER → 2024-08-29 | Outpatient (CLI) | payer OTHER | END | disposition home or self-care (01) | LOC: WOUNDCARE 02:11 | PROVIDERS: ATTEND Nurse Practitioner Family | DX: S80.822D Blister (nonthermal), left lower leg, subsequent encounter (principal); S80.821D Blister (nonthermal), right lower leg, subsequent encounter; E11.622 Type 2 diabetes mellitus with other skin ulcer; L97.822 Non-pressure chronic ulcer of other part of left lower leg with fat layer exposed; E11.69 Type 2 diabetes mellitus with other specified complication; M86.8X7 Other osteomyelitis, ankle and foot; I11.0 Hypertensive heart disease with heart failure; I50.30 Unspecified diastolic (congestive) heart failure; I48.91 Unspecified atrial fibrillation; I25.10 Atherosclerotic heart disease of native coronary artery without angina pectoris; I86.8 Varicose veins of other specified sites; I87.8 Other specified disorders of veins; B35.1 Tinea unguium; L60.2 Onychogryphosis; J45.909 Unspecified asthma, uncomplicated; M10.9 Gout, unspecified; E78.5 Hyperlipidemia, unspecified; Z90.49 Acquired absence of other specified parts of digestive tract; Z95.818 Presence of other cardiac implants and grafts; Z79.4 Long term (current) use of insulin; Z79.899 Other long term (current) drug therapy; X58.XXXD Exposure to other specified factors, subsequent encounter ==

== ENCOUNTER → 2024-09-05 | Outpatient (CLI) | payer OTHER | END | disposition home or self-care (01) | LOC: WOUNDCARE 00:55 | PROVIDERS: ATTEND Nurse Practitioner Family | DX: S80.821D Blister (nonthermal), right lower leg, subsequent encounter (principal); E11.622 Type 2 diabetes mellitus with other skin ulcer; L97.812 Non-pressure chronic ulcer of other part of right lower leg with fat layer exposed; E11.69 Type 2 diabetes mellitus with other specified complication; M86.8X7 Other osteomyelitis, ankle and foot; I11.0 Hypertensive heart disease with heart failure; I50.30 Unspecified diastolic (congestive) heart failure; I48.91 Unspecified atrial fibrillation; I25.10 Atherosclerotic heart disease of native coronary artery without angina pectoris; I86.8 Varicose veins of other specified sites; I87.8 Other specified disorders of veins; B35.1 Tinea unguium; L60.2 Onychogryphosis; J45.909 Unspecified asthma, uncomplicated; M10.9 Gout, unspecified; E78.5 Hyperlipidemia, unspecified; Z90.49 Acquired absence of other specified parts of digestive tract; Z95.818 Presence of other cardiac implants and grafts; Z79.4 Long term (current) use of insulin; Z79.899 Other long term (current) drug therapy; X58.XXXD Exposure to other specified factors, subsequent encounter ==

== ENCOUNTER → 2024-10-11 | Outpatient (CLI) | payer OTHER | END | disposition home or self-care (01) | LOC: WOUNDCARE 13:48 | PROVIDERS: ATTEND Nurse Practitioner Family | DX: E11.622 Type 2 diabetes mellitus with other skin ulcer (principal); L97.812 Non-pressure chronic ulcer of other part of right lower leg with fat layer exposed; L97.822 Non-pressure chronic ulcer of other part of left lower leg with fat layer exposed; E11.69 Type 2 diabetes mellitus with other specified complication; M86.8X7 Other osteomyelitis, ankle and foot; I11.0 Hypertensive heart disease with heart failure; I50.30 Unspecified diastolic (congestive) heart failure; I25.10 Atherosclerotic heart disease of native coronary artery without angina pectoris; I48.91 Unspecified atrial fibrillation; I86.8 Varicose veins of other specified sites; L60.2 Onychogryphosis; B35.1 Tinea unguium; I87.8 Other specified disorders of veins; J45.909 Unspecified asthma, uncomplicated; M10.9 Gout, unspecified; E78.5 Hyperlipidemia, unspecified; Z90.49 Acquired absence of other specified parts of digestive tract; Z95.818 Presence of other cardiac implants and grafts; Z79.4 Long term (current) use of insulin; Z79.899 Other long term (current) drug therapy; X58.XXXD Exposure to other specified factors, subsequent encounter ==

== ENCOUNTER 2024-10-17 22:42 | Emergency (ER) | payer OTHER ==
[~2024-10-17] VITALS: Ht 180.3 cm; Wt 158.8 kg
[2024-10-17] MEDS ORDERED: Tdap Vaccine 0.5 ML SYR (Adult Vaccine) IM ONE (23:05)
[2024-10-17] MEDS ORDERED: CEPHALEXIN500 M1 PO (23:43)
== END 2024-10-18 00:43 | disposition home or self-care (01) ==
LOC: ED 22:42
DX: S91.312A Laceration without foreign body, left foot, initial encounter (principal); Z91.048 Other nonmedicinal substance allergy status; Z88.5 Allergy status to narcotic agent; Z88.1 Allergy status to other antibiotic agents; Z79.899 Other long term (current) drug therapy; Z79.4 Long term (current) use of insulin; Z95.5 Presence of coronary angioplasty implant and graft; Z90.49 Acquired absence of other specified parts of digestive tract; Z90.89 Acquired absence of other organs; X58.XXXA Exposure to other specified factors, initial encounter; Y93.89 Activity, other specified; Y92.89 Other specified places as the place of occurrence of the external cause; Y99.8 Other external cause status

== ENCOUNTER → 2024-10-18 | Outpatient (CLI) | payer OTHER | END | disposition home or self-care (01) | LOC: WOUNDCARE 03:08 | PROVIDERS: ATTEND Nurse Practitioner Family | DX: E11.622 Type 2 diabetes mellitus with other skin ulcer (principal); L97.812 Non-pressure chronic ulcer of other part of right lower leg with fat layer exposed; L97.822 Non-pressure chronic ulcer of other part of left lower leg with fat layer exposed; E11.69 Type 2 diabetes mellitus with other specified complication; M86.8X7 Other osteomyelitis, ankle and foot; I11.0 Hypertensive heart disease with heart failure; I50.30 Unspecified diastolic (congestive) heart failure; I25.10 Atherosclerotic heart disease of native coronary artery without angina pectoris; I48.91 Unspecified atrial fibrillation; I86.8 Varicose veins of other specified sites; L60.2 Onychogryphosis; B35.1 Tinea unguium; I87.8 Other specified disorders of veins; J45.909 Unspecified asthma, uncomplicated; M10.9 Gout, unspecified; E78.5 Hyperlipidemia, unspecified; Z90.49 Acquired absence of other specified parts of digestive tract; Z95.818 Presence of other cardiac implants and grafts; Z79.4 Long term (current) use of insulin; Z79.899 Other long term (current) drug therapy ==

== ENCOUNTER → 2024-10-25 | Outpatient (CLI) | payer OTHER | END | disposition home or self-care (01) | LOC: WOUNDCARE 01:29 | PROVIDERS: ATTEND Nurse Practitioner Family | DX: E11.622 Type 2 diabetes mellitus with other skin ulcer (principal); I83.018 Varicose veins of right lower extremity with ulcer other part of lower leg; L97.812 Non-pressure chronic ulcer of other part of right lower leg with fat layer exposed; I83.028 Varicose veins of left lower extremity with ulcer other part of lower leg; L97.822 Non-pressure chronic ulcer of other part of left lower leg with fat layer exposed; S91.302A Unspecified open wound, left foot, initial encounter; E11.69 Type 2 diabetes mellitus with other specified complication; M86.672 Other chronic osteomyelitis, left ankle and foot; I11.0 Hypertensive heart disease with heart failure; I50.9 Heart failure, unspecified; L60.2 Onychogryphosis; B35.1 Tinea unguium; I87.2 Venous insufficiency (chronic) (peripheral); I25.10 Atherosclerotic heart disease of native coronary artery without angina pectoris; J45.909 Unspecified asthma, uncomplicated; I48.91 Unspecified atrial fibrillation; M10.9 Gout, unspecified; E78.5 Hyperlipidemia, unspecified; F10.90 Alcohol use, unspecified, uncomplicated; Z90.49 Acquired absence of other specified parts of digestive tract; Z98.890 Other specified postprocedural states; Z79.4 Long term (current) use of insulin; Z79.899 Other long term (current) drug therapy; X58.XXXA Exposure to other specified factors, initial encounter; Y93.89 Activity, other specified; Y92.89 Other specified places as the place of occurrence of the external cause; Y99.8 Other external cause status; Y90.9 Presence of alcohol in blood, level not specified ==

== ENCOUNTER 2025-09-13 10:04 | Inpatient (IN) | payer OTHER ==
[2025-09-13] VITALS (28 sets, daily range): BP systolic 74–116; BP diastolic 41–60
[~2025-09-13] VITALS: Ht 180.3 cm; Wt 167.1 kg
[~2025-09-13 10:04] MED LIST changes: +HUMALOG MI100 UNIT/1 SQ; +XARELTO15 M1 PO
[2025-09-13] MEDS ORDERED: SODIUM CHLORIDE 0.9% 1,000 ML IV ONE ×2 (10:20→11:05)
[2025-09-13 10:38] LABS: BASO # 0.0 10*3/uL (0.0-0.1); BASO % 0.2 % (0.0-1.0); EOS # 0.0 10*3/uL (0.0-0.4); EOS % 0.4 % (1.0-4.0); MEAN CELL VOLUME 76.1 fl (80.0-94.0); MEAN CORPUSCULAR HGB 20.9 pg (27.0-31.0); MEAN PLATELET VOLUME 9.1 fl (9.6-12.3); MONO # 0.5 10*3/uL (0.1-1.0); MONO % 6.1 % (3.0-9.0); NEUT # 7.2 10*3/uL (2.3-7.9); NEUT % 84.3 % (47.0-73.0); NUCLEATED RED BLOOD CELL 0.0 % (0.0-0.0); NUCLEATED RED BLOOD CELL 0.0 10*3/uL (0.0-0.0); PLATELET COUNT AUTOMATED 283 10*3/uL (130-400); RED CELL DISTRI WIDTH 22.5 % (0-14.5)
[2025-09-13 11:00] LABS: BUN 70.0 mg/dl (9-23); SGPT/ALT 12.0 U/L (5-49)
[2025-09-13] MEDS ORDERED: DEXTROSE 10 % IN WATER 250 ML DEHP.FR.BG IV ONE (12:00)
[2025-09-13 13:11] LABS: BILIRUBIN Negative (Negative); BLOOD 3+ (Negative); CLARITY Turbid (Clear); COLOR Yellow (Yellow); KETONE Trace (Negative); LEUKO ESTERASE 3+ (Negative); NITRITE Negative (Negative); PH 5.0 (4.5-8.0); SPECIFIC GRAVITY 1.015 (1.001-1.030); UROBILINOGEN 1.0 E.U./dl (0.0-1.0)
[2025-09-13 13:24] LABS: BACTERIA 1+; RBC TNTC rbc/hpf (0-2); WBC TNTC wbc/hpf (0-5); YEAST 4+
[2025-09-13] MEDS ORDERED: BISACODYL 5 MG TAB PO PRN (13:30)
[2025-09-13] MEDS ORDERED: ACETAMINOPHEN 325 MG TAB PO PRN (13:30)
[2025-09-13] MEDS ORDERED: ACETAMINOPHEN 650 MG SUPP R PRN (13:30)
[2025-09-13] MEDS ORDERED: BISACODYL 10 MG SUPP R PRN (13:30)
[2025-09-13] MEDS ORDERED: TEMAZEPAM 15 MG CAP PO PRN (13:30)
[2025-09-13] MEDS ORDERED: Ondansetron Hydrochloride 4 MG/2 ML VIAL IV PRN (13:30)
[2025-09-13] MEDS ORDERED: CLOPIDOGREL75 MG PO (14:50)
[2025-09-13] MEDS ORDERED: METOPROLOL SUCC25 M2 PO ×2 (14:51→14:52)
[2025-09-13] MEDS ORDERED: PANTOPRAZOLE SO40 MG PO (14:54)
[2025-09-13] MEDS ORDERED: GLYBURIDE5 MG PO (15:00)
[2025-09-13] MEDS ORDERED: DEXTROSE 50% 25 GM/50 ML SYR IV ONE (15:20)
[2025-09-13] MEDS ORDERED: FLUCONAZOLE 100 MG TAB PO SCH (17:00)
[2025-09-13] MEDS ORDERED: DEXTROSE 50% 25 GM/50 ML VIAL IV ONE ×3 (18:20→22:05)
[2025-09-13] MEDS ORDERED: NOREPINEPHRINE BITARTRATE/D5W 250 ML IV SCH (19:10)
[2025-09-13] MEDS ORDERED: FUROSEMIDE 20 MG/2 ML VIAL IV ONE (19:30)
[2025-09-13] MEDS ORDERED: DEXTROSE 10% 1,000 ML IV SCH (20:25)
[2025-09-13] MEDS ORDERED: OCTREOTIDE ACETATE 100 MCG/ML VIAL SC SCH (20:30)
[2025-09-13] MEDS ORDERED: APIXABAN 5 MG TAB PO SCH (22:00)
[2025-09-13] MEDS ORDERED: LINEZOLID 300 ML IV SCH (22:00)
[2025-09-14] VITALS (92 sets, daily range): BP systolic 74–127; BP diastolic 30–71
[2025-09-14 05:40] LABS: BUN 73.0 mg/dl (9-23); FREE T4 0.92 ng/dl (0.89-1.76); SGPT/ALT 12.0 U/L (5-49)
[2025-09-14] MEDS ORDERED: FUROSEMIDE 40 MG/4 ML VIAL IV SCH ×2 (06:00→15:54)
[2025-09-14 06:02] LABS: LDL CHOLESTEROL 48.0 mg/dL (9-159)
[2025-09-14 06:11] LABS: BASO # 0.0 10*3/uL (0.0-0.1); BASO % 0.3 % (0.0-1.0); EOS # 0.2 10*3/uL (0.0-0.4); EOS % 1.8 % (1.0-4.0); MEAN CELL VOLUME 74.9 fl (80.0-94.0); MEAN CORPUSCULAR HGB 20.6 pg (27.0-31.0); MEAN PLATELET VOLUME 9.8 fl (9.6-12.3); MONO # 0.9 10*3/uL (0.1-1.0); MONO % 9.1 % (3.0-9.0); NEUT # 7.3 10*3/uL (2.3-7.9); NEUT % 78.2 % (47.0-73.0); NUCLEATED RED BLOOD CELL 0.0 % (0.0-0.0); NUCLEATED RED BLOOD CELL 0.0 10*3/uL (0.0-0.0); PLATELET COUNT AUTOMATED 284 10*3/uL (130-400); RED CELL DISTRI WIDTH 22.3 % (0-14.5)
[2025-09-14 06:34] LABS: ACT PARTIAL THROMBO TIME 37.0 SECONDS (20.0-32.1)
[2025-09-14 09:46] LABS: VITAMIN D, 25-HYDROXY 45.0 ng/mL (30-100)
[2025-09-14] MEDS ORDERED: Clopidogrel Hydrogen Sulfate 75 MG TAB PO SCH (10:00)
[2025-09-14] MEDS ORDERED: NYSTATIN 15 GM BOT T SCH (14:00)
[2025-09-14] MEDS ORDERED: FOAM BANDAGE 5X5 T ONE (16:31)
[2025-09-14] MEDS ORDERED: LEPTOSPERMUM HONEY 0.5 OZ TUBE T ONE (16:31)
[2025-09-14] MEDS ORDERED: SILICONE CONTACT LAYER WOUND DRESSING (VERSATEL) ONE (16:32)
[2025-09-14] MEDS ORDERED: BUMETANIDE 12.5 MG in SYRINGE INFUSION 0 ML IV SCH (19:00)
[2025-09-15] VITALS (95 sets, daily range): BP systolic 75–130; BP diastolic 39–70
[2025-09-15] MEDS ORDERED: HEEL PROTECTOR DEVICE ONE (01:50)
[2025-09-15 05:18] LABS: BUN 77.0 mg/dl (9-23); SGPT/ALT 12.0 U/L (5-49)
[2025-09-15 06:18] LABS: BASO # 0.0 10*3/uL (0.0-0.1); BASO % 0.3 % (0.0-1.0); EOS # 0.1 10*3/uL (0.0-0.4); EOS % 1.2 % (1.0-4.0); MEAN CELL VOLUME 76.0 fl (80.0-94.0); MEAN CORPUSCULAR HGB 20.9 pg (27.0-31.0); MEAN PLATELET VOLUME 10.3 fl (9.6-12.3); MONO # 0.9 10*3/uL (0.1-1.0); MONO % 10.7 % (3.0-9.0); NEUT # 6.6 10*3/uL (2.3-7.9); NEUT % 75.5 % (47.0-73.0); NUCLEATED RED BLOOD CELL 0.0 % (0.0-0.0); NUCLEATED RED BLOOD CELL 0.0 10*3/uL (0.0-0.0); PLATELET COUNT AUTOMATED 287 10*3/uL (130-400); RED CELL DISTRI WIDTH 21.8 % (0-14.5)
[2025-09-15] MEDS ORDERED: Menthol/Zinc Oxide 4 GM THIN T SCH (10:00)
[2025-09-15] MEDS ORDERED: LEVOFLOXACIN 150 ML IV SCH (17:00)
[2025-09-15] MEDS ORDERED: SODIUM POLYSTYRENE SULFONATE 15 GM/60 ML BOT PO ONE (17:35)
[2025-09-15 20:41] LABS: ABG BASE EXCESS -3.6 mmol/L (-2.0-3.0); ABG O2 SATURATION 96.2 % (94.0-98.0); ARTERIAL BLOOD GAS PH 7.302 (7.350-7.450); ARTERIAL BLOOD GAS PO2 88.9 mmHg (83.0-108.0)
[2025-09-15 21:10] LABS: BUN 77.0 mg/dl (9-23)
[2025-09-15] MEDS ORDERED: MAGNESIUM SULFATE 50 ML IV ONE (23:50)
[2025-09-16] VITALS (86 sets, daily range): BP systolic 79–132; BP diastolic 41–69
[2025-09-16] MEDS ORDERED: FOAM BANDAGE 1 EACH BANDAGE T ONE (01:48)
[2025-09-16 05:24] LABS: BUN 74.0 mg/dl (9-23); SGPT/ALT 13.0 U/L (5-49)
[2025-09-16] MEDS ORDERED: MAGNESIUM SULFATE 100 ML IV ONE (06:10)
[2025-09-16 06:33] LABS: BASO # 0.0 10*3/uL (0.0-0.1); BASO % 0.2 % (0.0-1.0); EOS # 0.2 10*3/uL (0.0-0.4); EOS % 2.2 % (1.0-4.0); MEAN CELL VOLUME 75.8 fl (80.0-94.0); MEAN CORPUSCULAR HGB 21.2 pg (27.0-31.0); MEAN PLATELET VOLUME 9.4 fl (9.6-12.3); MONO # 0.8 10*3/uL (0.1-1.0); MONO % 7.6 % (3.0-9.0); NEUT # 8.6 10*3/uL (2.3-7.9); NEUT % 82.1 % (47.0-73.0); NUCLEATED RED BLOOD CELL 0.0 % (0.0-0.0); NUCLEATED RED BLOOD CELL 0.0 10*3/uL (0.0-0.0); PLATELET COUNT AUTOMATED 225 10*3/uL (130-400); RED CELL DISTRI WIDTH 21.9 % (0-14.5)
[2025-09-16] MEDS ORDERED: PERFLUTREN PROTEIN-A MICROSPHR 3 ML VIAL IV ONE (15:33)
[2025-09-16] MEDS ORDERED: BUMETANIDE 1 MG/4 ML VIAL IV SCH (18:00)
[2025-09-16] MEDS ORDERED: SILVER SULFADIAZINE 25 GM TUBE T SCH (22:00)
[2025-09-16] MEDS ORDERED: LIDOCAINE 5% ANORECTAL CREAM T SCH (22:00)
[2025-09-17] VITALS: BP 116/61
[2025-09-17 04:00] VITALS: BP 114/60
[2025-09-17 05:09] LABS: BUN 62.0 mg/dl (9-23)
[2025-09-17 06:39] LABS: BASO # 0.0 10*3/uL (0.0-0.1); BASO % 0.3 % (0.0-1.0); EOS # 0.2 10*3/uL (0.0-0.4); EOS % 2.6 % (1.0-4.0); MEAN CELL VOLUME 76.9 fl (80.0-94.0); MEAN CORPUSCULAR HGB 21.1 pg (27.0-31.0); MEAN PLATELET VOLUME 9.8 fl (9.6-12.3); MONO # 0.6 10*3/uL (0.1-1.0); MONO % 7.9 % (3.0-9.0); NEUT # 6.0 10*3/uL (2.3-7.9); NEUT % 82.0 % (47.0-73.0); NUCLEATED RED BLOOD CELL 0.0 % (0.0-0.0); NUCLEATED RED BLOOD CELL 0.0 10*3/uL (0.0-0.0); PLATELET COUNT AUTOMATED 197 10*3/uL (130-400); RED CELL DISTRI WIDTH 21.9 % (0-14.5)
[2025-09-17 08:00] VITALS: BP 105/40
[2025-09-17 12:00] VITALS: BP 104/50
[2025-09-17] MEDS ORDERED: Potassium Bicarbonate/Potass 25 MEQ TAB PO ONE (12:05)
[2025-09-17] MEDS ORDERED: POTASSIUM CHLORIDE 20 MEQ TAB PO ONE (12:15)
[2025-09-17 16:00] VITALS: BP 125/62
[2025-09-17] MEDS ORDERED: AMMONIUM LACTATE 12% LOTION T SCH (18:00)
[2025-09-17 18:40] LABS: BUN 54.0 mg/dl (9-23)
[2025-09-17 20:00] VITALS: BP 125/60
[2025-09-18] VITALS: BP 116/67
[2025-09-18 04:00] VITALS: BP 111/56
[2025-09-18 05:04] LABS: BUN 49.0 mg/dl (9-23)
[2025-09-18 05:59] LABS: BASO # 0.0 10*3/uL (0.0-0.1); BASO % 0.2 % (0.0-1.0); EOS # 0.0 10*3/uL (0.0-0.4); EOS % 0.0 % (1.0-4.0); MEAN CELL VOLUME 76.3 fl (80.0-94.0); MEAN CORPUSCULAR HGB 21.0 pg (27.0-31.0); MEAN PLATELET VOLUME 9.6 fl (9.6-12.3); MONO # 0.2 10*3/uL (0.1-1.0); MONO % 3.8 % (3.0-9.0); NEUT # 4.1 10*3/uL (2.3-7.9); NEUT % 87.9 % (47.0-73.0); NUCLEATED RED BLOOD CELL 0.0 % (0.0-0.0); NUCLEATED RED BLOOD CELL 0.0 10*3/uL (0.0-0.0); PLATELET COUNT AUTOMATED 180 10*3/uL (130-400); RED CELL DISTRI WIDTH 22.2 % (0-14.5)
[2025-09-18 08:00] VITALS: BP 109/67
[2025-09-18] MEDS ORDERED: FOAM BANDAGE 5X5 T ONE (08:48)
[2025-09-18] MEDS ORDERED: LEPTOSPERMUM HONEY 4 X 5 INCH WOUND DRESSING T ONE (08:50)
[2025-09-18] MEDS ORDERED: FOAM BANDAGE 1 EACH BANDAGE T ONE (08:51)
[2025-09-18] MEDS ORDERED: ALGINATE DRESSING/CME-CELL 4X4 1 EACH BANDAGE T ONE (08:51)
[2025-09-18] MEDS ORDERED: methylPREDNISolone sod succ 20 MG IV SCH (10:00)
[2025-09-18 12:00] VITALS: BP 110/53
[2025-09-18 16:00] VITALS: BP 125/69
[2025-09-18 20:00] VITALS: BP 129/82
[2025-09-19] VITALS: BP 129/73
[2025-09-19] MEDS ORDERED: ADHESIVE BANDAGE 1 EACH BANDAGE T ONE (00:54)
[2025-09-19 04:00] VITALS: BP 121/62
[2025-09-19 05:27] LABS: BUN 50.0 mg/dl (9-23)
[2025-09-19 08:00] VITALS: BP 124/64
[2025-09-19] MEDS ORDERED: DEXTROSE 50% 25 GM/50 ML VIAL IV PRN (08:10)
[2025-09-19] MEDS ORDERED: GUAIFENESIN 600 MG TAB ER PO SCH ×2 (08:25→14:00)
[2025-09-19] MEDS ORDERED: Benzocaine/Menthol 1 LOZ LOZENGE PO PRN (10:50)
[2025-09-19] MEDS ORDERED: BENZONATATE 100 MG CAP PO SCH (11:15)
[2025-09-19] MEDS ORDERED: INSULIN LISPRO 1 UNIT/0.01 ML SQ SCH (11:30)
[2025-09-19 12:00] VITALS: BP 124/57
[2025-09-19 16:00] VITALS: BP 110/65
[2025-09-19] MEDS ORDERED: BUMETANIDE 1 MG TAB PO SCH (18:00)
[2025-09-19 20:00] VITALS: BP 130/70
[2025-09-19] MEDS ORDERED: COLCHICINE 0.6 MG TAB PO SCH (22:00)
[2025-09-20] VITALS: BP 126/68
[2025-09-20 04:00] VITALS: BP 119/79
[2025-09-20 05:24] LABS: BUN 51.0 mg/dl (9-23)
[2025-09-20 06:01] LABS: BASO # 0.0 10*3/uL (0.0-0.1); BASO % 0.0 % (0.0-1.0); EOS # 0.0 10*3/uL (0.0-0.4); EOS % 0.0 % (1.0-4.0); MEAN CELL VOLUME 77.7 fl (80.0-94.0); MEAN CORPUSCULAR HGB 21.1 pg (27.0-31.0); MEAN PLATELET VOLUME 10.3 fl (9.6-12.3); MONO # 0.4 10*3/uL (0.1-1.0); MONO % 5.6 % (3.0-9.0); NEUT # 5.2 10*3/uL (2.3-7.9); NEUT % 81.7 % (47.0-73.0); NUCLEATED RED BLOOD CELL 0.0 % (0.0-0.0); NUCLEATED RED BLOOD CELL 0.0 10*3/uL (0.0-0.0); PLATELET COUNT AUTOMATED 185 10*3/uL (130-400); RED CELL DISTRI WIDTH 23.0 % (0-14.5)
[2025-09-20 08:00] VITALS: BP 110/67
[2025-09-20] MEDS ORDERED: COLCHICINE0.6 M2 PO (10:36)
[2025-09-20] MEDS ORDERED: AMMONIUM LACTA227 GM T (10:36)
[2025-09-20] MEDS ORDERED: APAP325 MG PO (10:36)
[2025-09-20] MEDS ORDERED: NYAMYC15 GM T (10:36)
[2025-09-20] MEDS ORDERED: ADMELOG100 UNIT/1 SQ (10:36)
[2025-09-20] MEDS ORDERED: PREDNISONE20 M1 PO (10:36)
[2025-09-20] MEDS ORDERED: SILVADENE,SSD C50 GM T (10:36)
[2025-09-20] MEDS ORDERED: ALLOPURINOL100 MG PO (10:36)
[2025-09-20] MEDS ORDERED: MUCUS RELIEF E600 MG PO (10:36)
[2025-09-20] MEDS ORDERED: BUMETANIDE1 MG PO (10:36)
[2025-09-20] MEDS ORDERED: BENZONATATE100 M1 PO (10:36)
[2025-09-20] MEDS ORDERED: LIDOCAINE30 G1 T (10:36)
[2025-09-20] MEDS ORDERED: DOXYCYCLINE HY100 M3 PO (10:36)
[2025-09-20] MEDS ORDERED: ELIQUIS5 M1 PO (10:37)
[2025-09-20 12:00] VITALS: BP 107/53
== END 2025-09-20 13:13 | DRG 871 ==
LOC: ED 10:04 → EDHOLD 12:28 → ICCU 12:28 → EDHOLD 13:37 → ICCU 13:42
PROVIDERS: Emergency Medicine; Internal Medicine Sleep Medicine; Student in an Organized Health Care Education/Training Program; ADMIT Internal Medicine; ATTEND Internal Medicine
PROC: 02HV33Z Insertion of Infusion Device into Superior Vena Cava, Percutaneous Approach (ICD-10-PCS; principal; 2025-09-13)
PROC: B548ZZA Ultrasonography of Superior Vena Cava, Guidance (ICD-10-PCS; 2025-09-13)
DX: A41.9 Sepsis, unspecified organism (principal); I50.33 Acute on chronic diastolic (congestive) heart failure; L89.893 Pressure ulcer of other site, stage 3; L89.523 Pressure ulcer of left ankle, stage 3; N17.0 Acute kidney failure with tubular necrosis; R65.21 Severe sepsis with septic shock; J15.69 Pneumonia due to other Gram-negative bacteria; E87.20 Acidosis, unspecified; N39.0 Urinary tract infection, site not specified; E87.1 Hypo-osmolality and hyponatremia; I13.0 Hypertensive heart and chronic kidney disease with heart failure and stage 1 through stage 4 chronic kidney disease, or unspecified chronic kidney disease; L03.115 Cellulitis of right lower limb; L03.116 Cellulitis of left lower limb; T68.XXXA Hypothermia, initial encounter; E86.0 Dehydration; I87.2 Venous insufficiency (chronic) (peripheral); I87.8 Other specified disorders of veins; N18.30 Chronic kidney disease, stage 3 unspecified; D64.9 Anemia, unspecified; E11.649 Type 2 diabetes mellitus with hypoglycemia without coma; E11.22 Type 2 diabetes mellitus with diabetic chronic kidney disease; E78.5 Hyperlipidemia, unspecified; E11.40 Type 2 diabetes mellitus with diabetic neuropathy, unspecified; I25.10 Atherosclerotic heart disease of native coronary artery without angina pectoris; J45.909 Unspecified asthma, uncomplicated; E66.01 Morbid (severe) obesity due to excess calories; E87.5 Hyperkalemia; Z20.822 Contact with and (suspected) exposure to COVID-19; Z88.5 Allergy status to narcotic agent; Z88.1 Allergy status to other antibiotic agents; Z90.89 Acquired absence of other organs; Z82.49 Family history of ischemic heart disease and other diseases of the circulatory system; Z82.3 Family history of stroke; Z79.899 Other long term (current) drug therapy

== ENCOUNTER 2025-10-23 11:59 | Emergency (ER) | payer OTHER ==
[~2025-10-23] VITALS: Wt 158.8 kg
[~2025-10-23 11:59] MED LIST changes: +ADMELOG100 UNIT/1 SQ; +APAP325 MG PO; +BENZONATATE100 M1 PO; +CLOPIDOGREL75 MG PO; +COLCHICINE0.6 M2 PO; +DOXYCYCLINE HY100 M3 PO; +ELIQUIS5 M1 PO; +LIDOCAINE30 G1 T; +METOPROLOL SUCC25 M2 PO; +MUCUS RELIEF E600 MG PO; +NYAMYC15 GM T; +PANTOPRAZOLE SO40 MG PO; +SILVADENE,SSD C50 GM T
[2025-10-23] MEDS ORDERED: SODIUM CHLORIDE 0.9% 1,000 ML IV SCH (12:05)
[2025-10-23] MEDS ORDERED: Ondansetron Hydrochloride 4 MG/2 ML VIAL IV ONE (12:10)
[2025-10-23] MEDS ORDERED: Albuterol Sulf/Ipratropium 3 ML VIAL NEB ONE (12:10)
[2025-10-23 12:15] LABS: ABG BASE EXCESS -9.0 mmol/L (-2.0-3.0); ABG O2 SATURATION 95.2 % (94.0-98.0); ARTERIAL BLOOD GAS PH 7.353 (7.350-7.450); ARTERIAL BLOOD GAS PO2 86.4 mmHg (83.0-108.0)
[2025-10-23 12:33] LABS: BASO # 0.0 10*3/uL (0.0-0.1); BASO % 0.2 % (0.0-1.0); EOS # 0.1 10*3/uL (0.0-0.4); EOS % 0.6 % (1.0-4.0); MEAN CELL VOLUME 78.0 fl (80.0-94.0); MEAN CORPUSCULAR HGB 23.3 pg (27.0-31.0); MEAN PLATELET VOLUME 9.3 fl (9.6-12.3); MONO # 1.1 10*3/uL (0.1-1.0); MONO % 11.4 % (3.0-9.0); NEUT # 7.4 10*3/uL (2.3-7.9); NEUT % 73.8 % (47.0-73.0); NUCLEATED RED BLOOD CELL 0.0 10*3/uL (0.0-0.0); NUCLEATED RED BLOOD CELL 0.2 % (0.0-0.0); PLATELET COUNT AUTOMATED 318 10*3/uL (130-400); RED CELL DISTRI WIDTH 25.2 % (0-14.5)
[2025-10-23 12:44] LABS: ACT PARTIAL THROMBO TIME 33.9 SECONDS (20.0-32.1)
[2025-10-23 12:54] LABS: BUN 80.0 mg/dl (9-23); SGPT/ALT 15.0 U/L (5-49)
[2025-10-23] MEDS ORDERED: SODIUM POLYSTYRENE SULFONATE 15 GM/60 ML BOT PO ONE (13:15)
[2025-10-23] MEDS ORDERED: INSULIN REGULAR, HUMAN 1 UNIT/0.01 ML IV ONE (13:15)
[2025-10-23] MEDS ORDERED: DEXTROSE 50% 25 GM/50 ML SYR IV ONE ×2 (13:15)
[2025-10-23] MEDS ORDERED: NOREPINEPHRINE BITARTRATE/D5W 250 ML IV SCH (13:50)
[2025-10-23] MEDS ORDERED: LORazepam 2 MG/ML VIAL IV ONE (15:15)
== END 2025-10-23 17:09 | disposition short-term general hospital (02) ==
LOC: ED 11:59
PROVIDERS: Internal Medicine
DX: N17.9 Acute kidney failure, unspecified (principal); R65.21 Severe sepsis with septic shock; E87.5 Hyperkalemia; L03.116 Cellulitis of left lower limb; L03.115 Cellulitis of right lower limb; J45.909 Unspecified asthma, uncomplicated; I10 Essential (primary) hypertension; M10.9 Gout, unspecified; I48.91 Unspecified atrial fibrillation; E11.9 Type 2 diabetes mellitus without complications; Z98.890 Other specified postprocedural states; Z90.89 Acquired absence of other organs; Z88.5 Allergy status to narcotic agent